=== PATIENT | female | born 2000 | race Caucasian/White ===

== ENCOUNTER 2019-08-22 04:13 | Emergency (ER) | payer OTHER ==
--- OUTSIDE RECORDS SUMMARY | 2019-08-22 04:16 | XMS REPORT | Summary of Care ---
:1999 Author Organization [facility] Address [address] [place] [address] Care Team Providers Name Role Phone Leela Bartholomew MD Primary Care Provider Reason for Visit Reason Comments Refill Request Encounter Details Date Type Department Care Team Description 04/26/2019 Telephone [facility] Endocrinology- Jenny Moreno MD Refill Request [address] Professional Office [address] [phone] [place] [address] [address] [place] [address] Allergies Active Allergy Reactions Severity Noted Date Comments Exenatide Microspheres Other - See comments 02/13/2018 Itchy, knot Sulfur Nausea and/or Vomiting 07/17/2018 Liraglutide Nausea and/or Vomiting Medium 06/22/2018 documented as of this encounter (statuses as of 04/26/2019) Medications Medication Sig Dispensed Refills Start End Date Status Date IBUPROFEN (MOTRIN Take by mouth. 0 Active ORAL)Indications: Diabetes type 2, uncontrolled glucagon (GLUCAGON 1 mg by 1 mg 0 Active EMERGENCY KIT, Intramuscular 6 HUMAN,) 1 mg route as needed injection (severe hypoglycemia, seizure or unconciousness). acetone, urine, Check ketones if 1 Box 5 Active test (KETONE URINE blood sugar >300 7 TEST) or if ill prn stripIndications: Uncontrolled diabetes mellitus type 2 without complications, unspecified long-term insulin use status albuterol 90 Inhale 2 Puffs 1 Inhaler 1 Active mcg/actuation every 6 (six) 8 inhaler hours as needed for Wheezing or Shortness of Breath. Insulin [place], Taking 2 injection 2 Box 12 Active Disposable, (PEN daily 8 NEEDLE) 31 gauge x 5/16" NdleIndications: Uncontrolled type 2 diabetes mellitus without complication pioglitazone 15 mg Take 1 tablet by 90 tablet 1 Active tabletIndications: mouth daily. 8 diabetes mellitus paroxetine 40 mg Take 1 tablet by 30 tablet 1 Active tablet mouth daily. 9 insulin inject 50 Units 5 Syringe 3 Active degludec-liragluti under the skin 9 de (XULTOPHY daily. 100/3.6) 100 unit-3.6 mg /mL (3 mL) InPnIndications: diabetes mellitus LEVONORGESTREL-ETH TAKE 1 TABLET BY 28 tablet 5 Active INYL ESTRADIOL MOUTH ONCE DAILY 9 0.1-20 mg-mcg per tabletIndications: Uses oral contraception metformin ER 500 Take 2 tablets by 360 tablet 0 Active mg 24 hr mouth 2 (two) 9 tabletIndications: times daily. Type 2 diabetes mellitus without complication, with long-term current use of insulin metformin ER 500 Take 2 tablets by 360 tablet 3 04/26/20 Discontinued mg 24 hr mouth 2 (two) 8 19 tabletIndications: times daily. Type 2 diabetes mellitus without complication, with long-term current use of insulin documented as of this encounter (statuses as of 04/26/2019) Active Problems Problem Noted Date Uncontrolled type 2 diabetes mellitus without complication, with long-term current use of insulin Overview: Diagnosed 2014 (age 14) Mixed hyperlipidemia 07/17/2018 Anxiety and depression 02/22/2018 Obesity (BMI 30-39.9) 02/22/2018 documented as of this encounter (statuses as of 04/26/2019) Social History Tobacco Use Types Packs/Day Years Used Date Light Tobacco Smoker Smokeless Tobacco: Never Used Alcohol Use Drinks/Week oz/Week Comments No 0 Standard drinks or equivalent 0.0 rare Sex Assigned at Date Recorded Not on file Job Start Date Occupation Industry Not on file Not on file Not on file Travel History Travel Start Travel End No recent travel history available. documented as of this encounter Last Filed Vital Signs Not on filedocumented in this encounter Plan of Treatment Date Type Specialty Care Team Description 07/07/2019 Office Visit Endocrinology Diabetes & Jenny Moreno MD Metabolism [address] [place] [address] [phone] Health Maintenance Due Date Last Done Comments PNEUMOCOCCAL 0-64 YEARS 12/22/2005 COMBINED SERIES (1 of 1 - PPSV23) MENINGOCOCCAL B VACCINES (1 12/22/2009 of 2 - Risk Bexsero 2-dose series) VARICELLA VACCINES (1 of 2 - 12/22/2012 13+ 2-dose series) HPV VACCINES (1 - Female 12/22/2014 3-dose series) EYE EXAM 08/21/2018 08/21/2017, 12/19/2016 HgA1C 12/21/2018 06/22/2018, 12/22/2017, 02/05/2017, Additional history exists DTaP,Tdap,and Td Vaccines (1 12/22/2018 - Tdap) INFLUENZA VACCINE (#1) 2019 FOOT EXAM 07/17/2019 07/17/2018, 07/17/2018, 06/22/2018, Additional history exists LDL-C 07/17/2019 07/17/2018, 02/05/2017 URINE MICROALBUMIN 07/17/2019 07/17/2018 CHLAMYDIA SCREENING 08/18/2019 08/18/2018 CREATININE (SERUM) 02/15/2020 02/14/2019, 07/17/2018, 02/05/2017 MENINGOCOCCAL VACCINE Aged Out No longer eligible based on patient's age to complete this topic documented as of this encounter Results Not on filedocumented in this encounter Visit Diagnoses Diagnosis Type 2 diabetes mellitus without complication, with long-term current use of insulin documented in this encounter Insurance Payer Benefit Plan / Subscriber ID Effective Phone Address Type Group Dates [facility] [id number] 2018-Lori [phone] [address] [employer] [facility] [employer] [phone] [place] [address] documented as of this encounter
--- OUTSIDE RECORDS SUMMARY | 2019-08-22 04:17 | XMS REPORT | Summary of Care ---
:1999 Author Organization [facility] Address [address] [place] [address] Care Team Providers Name Role Phone Leela Bartholomew MD Primary Care Provider Reason for Visit Reason Comments Headache X 4 days Fever Sore Throat LAB WORK Encounter Details Date Type Department Care Team Description 05/13/2019 Office Visit [facility] Family SaschaAminta FNP Viral upper respiratory tract infection (Primary Dx); Medicine - [place] [address] Follow up; [address] Acute cystitis without hematuria [place], [place] [phone] [place], [place] [phone] Allergies Active Allergy Reactions Severity Noted Date Comments Exenatide Microspheres Other - See comments 02/13/2018 Itchy, knot Sulfur Nausea and/or Vomiting 07/17/2018 Liraglutide Nausea and/or Vomiting Medium 06/22/2018 documented as of this encounter (statuses as of 05/14/2019) Medications Medication Sig Dispensed Refills Start Date End Date Status IBUPROFEN (MOTRIN Take by mouth. 0 Active ORAL)Indications: Diabetes type 2, uncontrolled glucagon (GLUCAGON 1 mg by 1 mg 0 11/01/2015 Active EMERGENCY KIT, Intramuscular route HUMAN,) 1 mg as needed (severe injection hypoglycemia, seizure or unconciousness). 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 Insulin [place], Taking 2 injection 2 Box 12 06/22/2018 Active Disposable, (PEN daily NEEDLE) 31 gauge x 5/16" NdleIndications: Uncontrolled type 2 diabetes mellitus without complication pioglitazone 15 mg Take 1 tablet by 90 tablet 1 07/17/2018 Active tabletIndications: mouth daily. diabetes mellitus paroxetine 40 mg Take 1 tablet by 30 tablet 1 09/09/2018 Active tablet mouth daily. insulin inject 50 Units 5 Syringe 3 01/28/2019 Active degludec-liraglutid under the skin e (XULTOPHY daily. 100/3.6) 100 unit-3.6 mg /mL (3 mL) InPnIndications: diabetes mellitus LEVONORGESTREL-ETHI TAKE 1 TABLET BY 28 tablet 5 02/08/2019 Active NYL ESTRADIOL MOUTH ONCE DAILY 0.1-20 mg-mcg per tabletIndications: Uses oral contraception metformin ER 500 mg Take 2 tablets by 360 tablet 0 04/26/2019 Active 24 hr mouth 2 (two) times tabletIndications: daily. Type 2 diabetes mellitus without complication, with long-term current use of insulin brompheniramine-pse Take 5 mL by mouth 200 mL 0 05/13/2019 05/23/2019 Active udoephedrine-DM 4 (four) times (BROMFED DM) daily as needed for 2-30-10 mg/5 mL Congestion/Allergie syrupIndications: s or Cough for up Viral upper to 10 days. respiratory tract infection azelastine 137 mcg Use 1 Melvin in each 30 mL 0 05/13/2019 05/27/2019 Active (0.1 %) nasal nostril 2 (two) sprayIndications: times daily for 14 Viral upper days. Use in each respiratory tract nostril as directed infection ciprofloxacin HCl Take 1 tablet by 20 tablet 0 05/14/2019 05/24/2019 Active (CIPRO) 500 mg mouth every 12 tabletIndications: (twelve) hours for Acute cystitis 10 days. without hematuria documented as of this encounter (statuses as of 05/14/2019) Active Problems Problem Noted Date Uncontrolled type 2 diabetes mellitus without complication, with long-term current use of insulin Overview: Diagnosed 2014 (age 14) Mixed hyperlipidemia 07/17/2018 Anxiety and depression 02/22/2018 Obesity (BMI 30-39.9) 02/22/2018 documented as of this encounter (statuses as of 05/14/2019) Social History Tobacco Use Types Packs/Day Years [...] of this encounter Last Filed Vital Signs Vital Sign Reading Time Taken Comments Blood Pressure 130/84 05/13/2019 9:22 AM CDT Pulse 105 05/13/2019 9:22 AM CDT Temperature 37 C (98.6 F) 05/13/2019 9:22 AM CDT Respiratory Rate - - Oxygen Saturation 98% 05/13/2019 9:22 AM CDT Inhaled Oxygen Concentration - - Weight 105.2 kg (232 lb) 05/13/2019 9:22 AM CDT Height 167.6 cm (5' 6") 05/13/2019 9:22 AM CDT Body Mass Index 37.45 05/13/2019 9:22 AM CDT documented in this encounter Progress Notes Aminta Caicedo FNP - 05/13/2019 9:20 AM CDT Cc: Chief Complaint Patient presents with Headache X 4 days Fever Sore Throat Felipa Benavides is a 18 year old female. Patient with 3 days of URI symptoms accompanied by LANDERS. She has a hx of seasonal allergies but not onroutine meds. She has recurrent UTIs since she was started on pioglitazone, she recently in the past few days finished a course of antibiotics but asking for test of cure with repeat labs since she is here. 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 URI Presenting symptoms: congestion, cough (dry), fever, rhinorrhea (mild) and sore throat Presenting symptoms: no fatigue Congestion: Location: Nasal Interferes with sleep: no Interferes with eating/drinking: no Cough: Cough characteristics: Dry Sputum characteristics: Nondescript Severity: Mild Onset quality: Gradual Timing: Intermittent Progression: Unchanged Chronicity: New Fever: Timing: Intermittent Max temp prior to arrival: 100.2 Temp source: Oral Progression: Resolved Rhinorrhea: Quality: Clear Severity: Mild Timing: Intermittent Progression: Unchanged Sore throat: Severity: Mild Onset quality: Gradual Timing: Intermittent Progression: Resolved Severity: Mild Onset quality: Gradual Timing: Intermittent Progression: Unchanged Chronicity: New Relieved by: Nothing Worsened by: Nothing Ineffective treatments: OTC medications Associated symptoms: headaches and swollen glands Associated symptoms: no wheezing Headaches: Severity: Moderate Onset quality: Gradual Duration: 3 days Timing: Constant Progression: Unchanged Chronicity: New Risk factors: diabetes mellitus Risk factors: no sick contacts Allergies Felipa is allergic to victoza [liraglutide]; bydureon [exenatide microspheres]; and sulfur. Medications Outpatient Medications Prior to Visit Medication Sig Dispense Refill metformin ER 500 mg 24 hr tablet Take 2 tablets by mouth 2 (two) times daily. 360 tablet 0 LEVONORGESTREL-ETHINYL ESTRADIOL 0.1-20 mg-mcg per tablet TAKE 1 TABLET BY MOUTH ONCE DAILY 28 tablet 5 insulin degludec-liraglutide (XULTOPHY 100/3.6) 100 unit-3.6 mg /mL (3 mL) InPn inject 50 Units under the skin daily. 5 Syringe 3 paroxetine 40 mg tablet Take 1 tablet by mouth daily. 30 tablet 1 pioglitazone 15 mg tablet Take 1 tablet by mouth daily. 90 tablet 1 Insulin [place], Disposable, (PEN NEEDLE) 31 gauge x 5/16" Ndle Taking 2 injection daily 2 Box 12 albuterol 90 mcg/actuation inhaler Inhale 2 Puffs every 6 (six) hours as needed for Wheezing or Shortness of Breath. 1 Inhaler 1 acetone, urine, test (KETONE URINE TEST) strip Check ketones if blood sugar >300 or if ill prn 1 Box 5 glucagon (GLUCAGON EMERGENCY KIT, HUMAN,) 1 mg injection 1 mg by Intramuscular route as needed (severe hypoglycemia, seizure or unconciousness). 1 mg 0 IBUPROFEN (MOTRIN ORAL) Take by mouth. No facility-administered medications prior to visit. Histories Past Medical History: Diagnosis Date Anxiety and depression 02/22/2018 Diabetes mellitus Mixed dyslipidemia 02/11/2017 Obesity (BMI 30-39.9) 02/22/2018 History reviewed. No pertinent surgical history. Social History Socioeconomic History Marital status: Single Spouse name: Not on file Number of children: Not on file Years of education: Not on file Highest education level: Not on file Occupational History Not on file Social Needs Financial resource strain: Not on file Food insecurity: Worry: Not on file Inability: Not on file Transportation needs: Medical: Not on file Non-medical: Not on file Tobacco Use Smoking status: Light Tobacco Smoker Smokeless tobacco: Never Used Substance and Sexual Activity Alcohol use: No Alcohol/week: 0.0 oz Comment: rare Drug use: No Sexual activity: Never Lifestyle Physical activity: Days per week: Not on file Minutes per session: Not on file Stress: Not on file Relationships Social connections: Talks on phone: Not on file Gets together: Not on file Attends samaritan service: Not on file Active member of club or organization: Not on file Attends meetings of clubs or organizations: Not on file Relationship status: Not on file Intimate partner violence: Fear of current or ex partner: Not on file Emotionally abused: Not on file Physically abused: Not on file Forced sexual activity: Not on file Other Topics Concern Not on file Social History Narrative Lives with parents. About to start college at [employer]. Family History Problem Relation Age of Onset Diabetes Mother High cholesterol Father Hypertension Father Other - see comments Father Paget disease Review of Systems Constitutional: Positive for fever. Negative for chills and fatigue. HENT: Positive for congestion, rhinorrhea (mild) and sore throat. Respiratory: Positive for cough (dry). Negative for apnea, choking, chest tightness, shortness of breath and wheezing. Cardiovascular: Negative. Negative for chest pain, palpitations and leg swelling. Gastrointestinal: Negative. Skin: Negative. Neurological: Positive for headaches. Negative for dizziness, tremors, seizures , syncope, facial asymmetry, speech difficulty, weakness, light-headedness and numbness. Endocrine: Endocrine negative diabetic Vital Signs BP 130/84 | Pulse 105 | Temp 37 C (98.6 F) (Oral) | Ht 5' 6" (1.676 m) | Wt 232 lb (105.2 kg) | SpO2 98% | BMI 37.45 kg/m Physical Exam Constitutional: She is oriented to person, place, and time. She appears well- developed and well-nourished. HENT: Head: Normocephalic. Right Ear: Hearing, tympanic membrane, external ear and ear canal normal. Left Ear: Hearing, tympanic membrane, external ear and ear canal normal. Nose: Rhinorrhea present. No mucosal edema or sinus tenderness. Right sinus exhibits maxillary sinustenderness. Left sinus exhibits maxillary sinus tenderness. Mouth/Throat: Uvula is midline, oropharynx is clear and moist and mucous membranes are normal. No oropharyngeal exudate, posterior oropharyngeal edema, posterior oropharyngeal erythema or tonsillar abscesses. Tonsils are 3+ on the right. Tonsils are 3+ on the left. No tonsillar exudate. Neck: Normal range of motion. Neck supple. Cardiovascular: Normal rate, regular rhythm, normal heart sounds and intact distal pulses. Exam reveals no gallop and no friction rub. No murmur heard. Pulmonary/Chest: Effort normal and breath sounds normal. No respiratory distress. She has no wheezes. She has no rales. She exhibits no tenderness. Abdominal: Soft. Bowel sounds are normal. She exhibits no distension. There is no tenderness. Lymphadenopathy: Head (right side): Submandibular adenopathy present. No submental and no tonsillar adenopathy present. Head (left side): Submandibular adenopathy present. No submental and no tonsillar adenopathy present. She has cervical adenopathy. Right cervical: No superficial cervical, no deep cervical and no posterior cervical adenopathy present. Left cervical: No superficial cervical, no deep cervical and no posterior cervical adenopathy present. Neurological: She is alert and oriented to person, place, and time. She displays normal reflexes. Nocranial nerve deficit or sensory deficit. She exhibits normal muscle tone. Coordination normal. Skin: Skin is warm and dry. Capillary refill takes less than 2 seconds. No rash noted. No erythema. No pallor. Nursing note and vitals reviewed. Assessment/Plan 1. URI - continue antihistamine ordered for allergies. Azelastine nasal spar and bromfed added for symptoms relief. Get the flu vaccine when available in clinic or local pharmacy. If no relief from symptoms, or worse, please RTC. 2. 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 Keep LANDERS diary, and avoid any known triggers. If no improvement, or with any new neurological symptoms, liz RTC. 2. F/U UTI: will get a repeat UA and culture to re-eval. Hydration and proper hygiene encouraged. Patient to discuss medication management with endocrinology with her scheduled visit. RTC if with any new symptoms, problems or concerns. Plan of care, desired health behaviors, goals, and medication discussed with patient. Education resources provided and reviewed with AVS. Patient/guardian/family verbalized understanding & agrees to plan of care. This visit did not involve counseling and coordination that comprised more than 50% of the visit time. If applicable, the [facility] database was accessed to review any controlled substance prescription claims data. The [employer] prescription claims data in [employer] was reviewed to assess patient compliance with the medication treatment plan. documented in this encounter Plan of Treatment Date Type Specialty Care Team Description 07/07/2019 Office Visit Endocrinology Diabetes & MorenoJenny MD [id number] [place], [place] [id number] Name Type Priority Associated Diagnoses Date/Time URINE CULTURE LAB Routine Follow up 05/13/2019 9:49 AM CDT Health Maintenance Due Date Last Done Comments [...] this topic documented as of this encounter Procedures Procedure Name Priority Date/Time Associated Diagnosis Comments URINALYSIS Routine 05/13/2019 10:48 AM Follow up Results for this CDT procedure are in the results section. documented in this encounter Results URINALYSIS (05/13/2019 10:48 AM CDT) APPEARANCE Slightly Cloudy (A) Clear [facility] COLOR Yellow Yellow [facility] PH 6.0 4.8 - 8.0 [facility] SP GRAVITY 1.025 1.003 - 1.030 [facility] GLU U QUAL Negative Negative [facility] BLOOD Negative Negative [facility] KETONES Negative Negative [facility] PROTEIN Negative Negative [facility] UROBILIN 0.2 mg/dL 0-1.0 mg/dL [facility] BILIRUBIN Negative Negative [facility] NITRITE Positive (A) Negative [facility] LEUK PENG Small (A) Negative [facility] RBC/HPF 0 0 - 3 HPF [facility] WBC/HPF 100 (H) 0 - 5 HPF [facility] BACTERIA Many (A) Negative [facility] SQ EPITH 80 HPF [facility] Specimen Urine - URINE, CLEAN CATCH Performing Organization Address City/State/Zipcode Phone Number [facility] CLIA: [id number], [address] [place] [address] documented in this encounter Visit Diagnoses Diagnosis Viral upper respiratory tract infection - Primary Acute upper respiratory infections of unspecified site Follow up Acute cystitis without hematuria Acute cystitis documented in this encounter Insurance Payer Benefit Plan / Subscriber ID Effective Phone Address Type Group Dates [facility] [id number] 2018-Lori [phone] [address] [employer] [facility] [employer] [facility] [employer] [id number] [place] [address] documented as of this encounter
--- OUTSIDE RECORDS SUMMARY | 2019-08-22 04:17 | XMS REPORT | Summary of Care ---
:1999 Author Organization [facility] Address [address] [place] [address] Care Team Providers Name Role Phone Leela Bartholomew MD Primary Care Provider Encounter Details Date Type Department Care Team Description 05/13/2019 Orders Only [facility] Doctor Unassigned, No [address] [facility] Name [place] [id number] Allergies Active Allergy Reactions Severity Noted Date Comments Exenatide Microspheres Other - See comments 02/13/2018 Itchy, knot Sulfur Nausea and/or Vomiting 07/17/2018 Liraglutide Nausea and/or Vomiting Medium 06/22/2018 documented as of this encounter (statuses as of 05/13/2019) Medications Medication Sig Dispensed Refills Start Date End Date Status IBUPROFEN (MOTRIN Take by mouth. 0 Active ORAL)Indications: Diabetes type 2, uncontrolled glucagon (GLUCAGON 1 mg by 1 mg 0 11/01/2015 Active EMERGENCY KIT, Intramuscular route HUMAN,) 1 mg as needed (severe injection hypoglycemia, seizure or unconciousness). 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 Insulin [place], Taking 2 injection 2 Box 12 06/22/2018 [...] 50 Units 5 Syringe 3 01/28/2019 Active degludec-liraglutide under the skin (XULTOPHY 100/3.6) daily. 100 unit-3.6 mg /mL (3 mL) InPnIndications: diabetes mellitus LEVONORGESTREL-ETHIN TAKE 1 TABLET BY 28 tablet 5 02/08/2019 Active YL ESTRADIOL 0.1-20 MOUTH ONCE DAILY mg-mcg per tabletIndications: Uses oral contraception metformin ER 500 mg Take 2 tablets by 360 tablet 0 04/26/2019 Active 24 hr mouth 2 (two) times tabletIndications: daily. Type 2 diabetes mellitus without complication, with long-term current use of insulin documented as of this encounter (statuses as of 05/13/2019) Active Problems Problem Noted Date Uncontrolled type 2 diabetes mellitus without complication, with long-term current use of insulin Overview: Diagnosed 2014 (age 14) Mixed hyperlipidemia 07/17/2018 Anxiety and depression 02/22/2018 Obesity (BMI 30-39.9) 02/22/2018 documented as of this encounter (statuses as of 05/13/2019) Social History Tobacco Use Types Packs/Day Years [...] Treatment Date Type Specialty Care Team Description 05/13/2019 Office Visit Family Medicine Aminta Caicedo FNP Arrived [address] [address] 07/07/2019 Office Visit Endocrinology Diabetes & MorenoJenny MD Metabolism [address] [place] [address] Health Maintenance Due Date Last Done Comments [...] Procedure Name Priority Date/Time Associated Diagnosis Comments NO SHOW OR MISSED Routine 05/13/2019 9:13 AM APPOINTMENT POLICY CDT ACKNOWLEDGEMENT documented in this encounter Results Not on filedocumented in this encounter Insurance Payer Benefit Plan / Subscriber ID Effective Phone Address Type Group Dates [facility] [id number] 2018-Lori [phone] [address] [employer] [facility] [employer] [phone] [place] [address] documented as of this encounter
--- OUTSIDE RECORDS SUMMARY | 2019-08-22 04:17 | XMS REPORT | Summary of Care ---
:2000 Author Organization [facility] Address [address] [place] [address] Care Team Providers Name Role Phone Leela Bartholomew MD Primary Care Provider Encounter Details Date Type Department Care Team Description 04/29/2019 Letter (Out) [facility] Endocrinology- Jenny Moreno MD [place] [address] [facility] Professional Office [place] [id number] [facility] [phone] [place] [address] [address] [place] [address] Allergies Active Allergy Reactions Severity Noted Date Comments Exenatide Microspheres Other - See comments 02/13/2018 Itchy, knot Sulfur Nausea and/or Vomiting 07/17/2018 Liraglutide Nausea and/or Vomiting Medium 06/22/2018 documented as of this encounter (statuses as of 04/29/2019) Medications Medication Sig Dispensed Refills Start Date [...] diabetes mellitus type 2 without complications, unspecified residential insulin use status albuterol 90 Inhale 2 Puffs 1 Inhaler 1 05/13/2018 Active mcg/actuation every 6 (six) hours inhaler as needed for Wheezing or Shortness of Breath. Insulin [place], Taking 2 injection 2 Box 12 06/22/2018 [...] as of this encounter (statuses as of 04/29/2019) Active Problems Problem Noted Date Uncontrolled type 2 diabetes mellitus without complication, with long-term current use of insulin Overview: Diagnosed 2014 (age 14) Mixed hyperlipidemia 07/17/2018 Anxiety and depression 02/22/2018 Obesity (BMI 30-39.9) 02/22/2018 documented as of this encounter (statuses as of 04/29/2019) Social History Tobacco Use Types Packs/Day Years [...] Description 07/07/2019 Office Visit Endocrinology Diabetes & Moreno, MD Jenny Metabolism [address] [place], [place] 557903 Health Maintenance Due Date Last Done Comments [...] ID Effective Phone Address Type Group Dates [facility] [id number] 2018-Lori [phone] [address] HMO HEALTH [employer] HEALTH CHOICE nt 86 [id number] [place] [address] documented as of this encounter
--- OUTSIDE RECORDS SUMMARY | 2019-08-22 04:17 | XMS REPORT | Summary of Care ---
:2000 Author Organization [facility] Address [address] [place] [address] Care Team Providers Name Role Phone Leela Bartholomew MD Primary Care Provider Reason for Visit Reason Comments Headache X 4 days Fever Sore Throat LAB WORK Encounter Details Date Type Department Care Team Description 05/13/2019 Office Visit [facility] Family Aminta Caicedo FNP Viral upper respiratory tract infection (Primary Dx); Medicine - [place] [address] Follow up [address] [place], [place] Fbc[address] [place] [phone] Allergies Active Allergy Reactions Severity Noted Date [...] diabetes mellitus type 2 without complications, unspecified half-way insulin use status albuterol 90 Inhale 2 Puffs 1 Inhaler 1 05/13/2018 Active mcg/actuation every 6 (six) hours inhaler as needed for Wheezing or Shortness of Breath. Insulin [place], Taking 2 injection 2 Box 12 06/22/2018 [...] tract infection azelastine 137 mcg Use 1 [place] in each 30 mL 0 05/13/2019 05/27/2019 Active (0.1 %) nasal nostril 2 (two) sprayIndications: times daily for 14 Viral upper days. Use in each respiratory tract nostril as directed infection documented as of this encounter (statuses as [...] documented in this encounter Progress Notes Aminta Caicedo, LILY - 05/13/2019 9:20 AM CDT Cc: Chief [...] She has an appointment scheduled with the brokerage purchase and sale clerk for medication management. URI Presenting symptoms: congestion, [...] by mouth daily. 90 tablet 1 Insulin [place], Disposable, (PEN NEEDLE) 31 gauge x 5/16" [...] file Gets together: Not on file Attends pentecostal service: Not on file Active member of [...] with parents. About to start college at [employer]. Family History Problem Relation Age of [...] of the visit time. If applicable, the [place] [employer] database was accessed to review any controlled substance prescription claims data. The [employer] prescription claims data in [employer] was reviewed to assess patient compliance with the medication treatment plan. documented in this encounter Plan of Treatment Date Type Specialty Care Team Description 07/07/2019 Office Visit Endocrinology Diabetes & MorenoJenny MD Metabolism [address] [place] [address] [phone] Name Type Priority Associated Diagnoses Date/Time URINALYSIS LAB Routine Follow up 05/13/2019 9:35 AM CDT URINE CULTURE LAB Routine Follow up 05/13/2019 [...] filedocumented in this encounter Visit Diagnoses Diagnosis Viral upper respiratory tract infection - Primary Acute upper respiratory infections of unspecified site Follow up documented in this encounter Insurance Payer Benefit Plan / Subscriber ID Effective Phone Address Type Group Dates [facility] [id number] 2018-Lori [phone] [address] HEALTH CHOICE HEALTH CHOICE nt [phone] [id number] [place] [address] documented as of this encounter
--- OUTSIDE RECORDS SUMMARY | 2019-08-22 04:17 | XMS REPORT ---
:2000 [facility] Address [address] [place] [address] Care Team Providers Name Role Phone Unavailable Unavailable Unavailable Problems This patient has no known problems. Allergies, Adverse Reactions, Alerts This patient has no known allergies or adverse reactions. Medications This patient has no known medications.
--- OUTSIDE RECORDS SUMMARY | 2019-08-22 04:17 | XMS REPORT | Summary of Care ---
:2000 Author Organization [facility] Address [address] [place] [address] Care Team Providers Name Role Phone Leela Bartholomew MD Primary Care Provider Reason for Visit Reason Comments Headache X 4 days Fever Sore Throat LAB WORK Encounter Details Date Type Department Care Team Description 05/13/2019 Office Visit [facility] Family Aminta Caicedo FNP Viral upper respiratory tract infection (Primary Dx); Medicine - [place] [address] Follow up [address] [place], [place] Xzh[address] [place], [place] [phone] Allergies Active Allergy Reactions Severity Noted Date [...] diabetes mellitus type 2 without complications, unspecified fpc insulin use status albuterol 90 Inhale 2 Puffs 1 Inhaler 1 05/13/2018 Active mcg/actuation every 6 (six) hours inhaler as needed for Wheezing or Shortness of Breath. Insulin [place], Taking 2 injection 2 Box 12 06/22/2018 [...] tract infection azelastine 137 mcg Use 1 [place] in each 30 mL 0 05/13/2019 05/27/2019 [...] She has an appointment scheduled with the wet room supervisor for medication management. URI Presenting symptoms: congestion, [...] by mouth daily. 90 tablet 1 Insulin [place], Disposable, (PEN NEEDLE) 31 gauge x 5/16" [...] file Gets together: Not on file Attends sabianist service: Not on file Active member of [...] with parents. About to start college at [employer]. Family History Problem Relation Age of Onset [...] of the visit time. If applicable, the [place] [employer] database was accessed to review any controlled substance prescription claims data. The [employer] prescription claims data in [place] was reviewed to assess patient compliance with the medication treatment plan. documented in this encounter Plan of Treatment Date Type Specialty Care Team Description 07/07/2019 Office Visit Endocrinology Diabetes & MorenoJenny MD Metabolism [address] [place] [address] [phone] Name Type Priority Associated Diagnoses Date/Time URINALYSIS LAB Routine Follow up 05/13/2019 10:48 AM CDT URINE CULTURE LAB Routine Follow [...] ID Effective Phone Address Type Group Dates [facility] [id number] 2018-Lori [phone] [address] HEALTH CHOICE HEALTH CHOICE nt 86 [phone] [place] [address] documented as of this encounter
--- OUTSIDE RECORDS SUMMARY | 2019-08-22 04:17 | XMS REPORT | Summary of Care ---
:2000 Author Organization [facility] Address [address] [place] [address] Care Team Providers Name Role Phone Leela Bartholomew MD Primary Care Provider Reason for Visit Reason Comments Headache X 4 days Fever Sore Throat LAB WORK Encounter Details Date Type Department Care Team Description 05/13/2019 Office Visit [facility] Family Aminta Caicedo FNP Viral upper respiratory tract infection (Primary Dx); Medicine - [place] [address] Follow up [address] [place], [place] Y[place] [place] [phone] Allergies Active Allergy Reactions Severity Noted Date [...] for Wheezing or Shortness of Breath. Insulin [place], Taking 2 injection 2 Box 12 06/22/2018 [...] tract infection azelastine 137 mcg Use 1 [place] in each 30 mL 0 05/13/2019 05/27/2019 [...] She has an appointment scheduled with the director of pediatric rehabilitation for medication management. URI Presenting symptoms: congestion, [...] by mouth daily. 90 tablet 1 Insulin [place], Disposable, (PEN NEEDLE) 31 gauge x 5/16" [...] file Gets together: Not on file Attends holiness service: Not on file Active member of [...] with parents. About to start college at [employer]. Family History Problem Relation Age of Onset [...] of the visit time. If applicable, the [place] [employer] database was accessed to review any controlled substance prescription claims data. The [employer] prescription claims data in [employer] was reviewed to assess patient compliance with the medication treatment plan. documented in this encounter Plan of Treatment Date Type Specialty Care Team Description 07/07/2019 Office Visit Endocrinology Diabetes & MorenoJenny MD Metabolism [address] [place] [address] [phone] Name Type Priority Associated Diagnoses Date/Time URINALYSIS [...] ID Effective Phone Address Type Group Dates [facility] [id number] 2018-Lori [phone] [address] HEALTH CHOICE HEALTH CHOICE nt 86 [phone] [place] [address] documented as of this encounter
--- OUTSIDE RECORDS SUMMARY | 2019-08-22 04:17 | XMS REPORT | Summary of Care ---
:2000 Author Organization [facility] Address [address] [place] [address] Care Team Providers Name Role Phone Leela Bartholomew MD Primary Care Provider Reason for Visit Reason Comments Refill Request Encounter Details Date Type Department Care Team Description 04/29/2019 Refill [facility] Endocrinology- Jenny Moreno MD Refill Request [address] Professional Office [address] [place] [phone] [address] [place] [address] Allergies Active Allergy Reactions Severity Noted Date Comments Exenatide Microspheres Other - See comments 02/13/2018 Itchy, knot Sulfur Nausea and/or Vomiting 07/17/2018 Liraglutide Nausea and/or Vomiting Medium 06/22/2018 documented as of this encounter (statuses as of 04/30/2019) Medications Medication Sig Dispensed Refills Start Date [...] diabetes mellitus type 2 without complications, unspecified intermediate insulin use status albuterol 90 Inhale 2 Puffs 1 Inhaler 1 05/13/2018 Active mcg/actuation every 6 (six) hours inhaler as needed for Wheezing or Shortness of Breath. Insulin [place], Taking 2 injection 2 Box 12 06/22/2018 [...] as of this encounter (statuses as of 04/30/2019) Active Problems Problem Noted Date Uncontrolled type 2 diabetes mellitus without complication, with long-term current use of insulin Overview: Diagnosed 2014 (age 14) Mixed hyperlipidemia 07/17/2018 Anxiety and depression 02/22/2018 Obesity (BMI 30-39.9) 02/22/2018 documented as of this encounter (statuses as of 04/30/2019) Social History Tobacco Use Types Packs/Day Years [...] Diabetes & Moreno, MD Jenny Metabolism [address] [place], [place] [phone] Health Maintenance Due Date Last Done Comments [...] Effective Phone Address Type Group Dates [facility] [id number] 2018-Lori [phone] [address] [employer] [facility] [employer] nt [phone] [place] [address] documented as of this encounter
[2019-08-22] MEDS ORDERED: METOCLOPRAMIDE 10 MG/2mL INJ ONE (04:55)
[2019-08-22] MEDS ORDERED: NA CHLORIDE 0.9% 1,000 ML ONE (04:56)
[2019-08-22] MEDS ORDERED: DIPHENHYDRAMINE 50 MG/ML VIAL ONE (04:56)
[2019-08-22] MEDS ORDERED: KETOROLAC 30 MG/ML INJ ONE (04:56)
[2019-08-22 05:06] LABS: Basophils % 0.6 % (0-1.3); Lymphocytes % 35.9 % (15.3-44.8); MPV 9.3 fL (7.6-11.3); RBC Red Blood Cell Count 4.82 M/uL (3.86-4.86)
[2019-08-22 05:17] LABS: Albumin 3.6 g/dL (3.4-5.0); Bilirubin Total 0.3 mg/dL (0.2-1.0); Protein, Total 7.8 g/dL (6.4-8.2)
[2019-08-22 05:25] LABS: Urine Specific Gravity 1.015 (1.005-1.030)
[2019-08-22 05:26] LABS: Urine Blood NEGATIVE (NEG); Urine Glucose 2+ (NEG); Urine Protein NEGATIVE (NEG); Urine Specific Gravity 1.015 (1.005-1.030); Urine pH 5.5 (5.0-7.0)
--- NOTE | 2019-08-22 06:09 | ER ---
Nurse's Notes [facility] Name: Felipa Benavides Age: 18 yrs Sex: Female : 2000 Arrival Date: 08/22/2019 Time: 04:17 Bed 6 Private MD: Diagnosis: Headache;Type 2 diabetes mellitus Presentation: 08/22 04:30 Presenting complaint: Patient states: "I woke up with a headache at about 0310. I took jd3 2 PMS equate brand and worked for the headache, but no I feel fatigued all over. I feel like how you feel after a panic attack.". Transition of care: patient was not received from another setting of care. Onset of symptoms was August 22, 2019. Risk Assessment: Do you want to hurt yourself or someone else? Patient reports no desire to harm self or others. Initial Sepsis Screen: Does the patient meet any 2 criteria? No. Patient's initial sepsis screen is negative. Does the patient have a suspected source of infection? No. Patient's initial sepsis screen is negative. Care prior to arrival: None. 04:30 Method Of Arrival: Ambulatory jd3 04:30 Acuity: EDILIA 3 jd3 Triage Assessment: 04:36 Headache History: The patient has had previous headaches and this one is more severe jd3 than previous episodes. Pain: Pain began 1 hour ago. Also complains of sleeplessness, inability to concentrate, fatigue. FAMILY LITERACY COORDINATOR: 04:33 LMP N/A - Irregular menses jd3 Historical: - Allergies: 04:32 No Known Allergies; jd3 - Home Meds: 04:32 metformin 500 mg Oral Tb24 2 tabs 2 times per day [Active]; jd3 - PMHx: 04:32 Diabetes - NIDDM; jd3 - PSHx: 04:32 None; jd3 - Immunization history:: Adult Immunizations up to date. - Social history:: Smoking status: Patient/guardian denies using tobacco. - Ebola Screening: : Patient negative for fever greater than or equal to 101.5 degrees Fahrenheit, and additional compatible Ebola Virus Disease symptoms. - Family history:: not pertinent. Screenin:35 Abuse screen: Denies threats or abuse. Nutritional screening: No deficits noted. jd3 Tuberculosis screening: No symptoms or risk factors identified. Fall Risk Ambulatory Aid- None/Bed Rest/Nurse Assist (0 pts). Gait- Normal/Bed Rest/Wheelchair (0 pts) Mental Status- Oriented to own ability (0 pts). Total Rawls Fall Scale indicates No Risk (0-24 pts). Assessment: 04:34 General: Appears in no apparent distress. uncomfortable, Behavior is calm, cooperative, jd3 appropriate for age, Reports fatigue for 0-12 hours. Pain: Complains of pain in head Pain currently is 2 out of 10 on a pain scale. Quality of pain is described as aching. Neuro: Level of Consciousness is awake, alert, obeys commands, Oriented to person, place, time, situation, Reports dizziness, Denies blurred vision numbness diplopia. Cardiovascular: Denies chest pain, Capillary refill < 3 seconds Patient's skin is warm and dry. Respiratory: Airway is patent Respiratory effort is even, unlabored, Respiratory pattern is regular, symmetrical, Denies cough, shortness of breath. GI: No signs and/or symptoms were reported involving the gastrointestinal system. Patient currently denies nausea, vomiting. : No signs and/or symptoms were reported regarding the genitourinary system. EENT: No signs and/or symptoms were reported regarding the EENT system. Derm: Skin is intact, Skin is dry, Skin is normal, Skin temperature is warm. Musculoskeletal: Circulation, motion, and sensation intact. Range of motion: intact in all extremities. 06:01 Reassessment: Patient appears in no apparent distress at this time. Patient and/or jd3 family updated on plan of care and expected duration. Pain level reassessed. Patient is alert, oriented x 3, equal unlabored respirations, skin warm/dry/pink. Patient states feeling better. 06:17 Reassessment: Patient appears in no apparent distress at this time. Patient and/or jd3 family updated on plan of care and expected duration. Pain level reassessed. Patient is alert, oriented x 3, equal unlabored respirations, skin warm/dry/pink. pt reported understanding of discharge instructions. even and steady gait upon discharge. Vital Signs: 04:33 BP 116 / 79; Pulse 90; Resp 17 S; Temp 98.7(O); Pulse Ox 100% on R/A; Weight 104.33 kg jd3 (R); Height 5 ft. 6 in. (167.64 cm) (R); Pain 2/10; 06:02 BP 105 / 63; Pulse 78; Resp 17 S; Pulse Ox 100% on R/A; Pain 0/10; jd3 06:02 Temp 98.1(O); jd3 04:33 Body Mass Index 37.12 (104.33 kg, 167.64 cm) jd3 ED Course: 04:17 Patient arrived in ED. ds1 04:29 Mian Powers, CARMEN is Primary Nurse. jd3 04:32 Triage completed. jd3 04:33 Arm band placed on. jd3 04:36 Patient has correct armband on for positive identification. Bed in low position. Call j light in reach. Side rails up X 1. Adult w/ patient. 04:39 Tiago Maxwell MD is Attending Physician. blade 04:56 Initial lab(s) drawn, by me, sent to lab. Urine collected: clean catch specimen, ak1 cloudy, Amount Voided: 100mL. Inserted saline lock: 20 gauge in right antecubital area, using aseptic technique. Blood collected. 05:21 CT Head Brain wo Cont In Process Unspecified. EDMS 06:07 Pablito Galvan MD is Referral Physician. blade 06:18 No provider procedures requiring assistance completed. IV discontinued, intact, jd3 bleeding controlled, No redness/swelling at site. Pressure dressing applied. Administered Medications: 05:01 Drug: NS 0.9% 1000 ml Route: IV; Rate: 1 bolus; Site: right antecubital; jd3 06:18 Follow up: Response: No adverse reaction; IV Status: Completed infusion; IV Intake: jd3 1000ml 05:01 Drug: TORadol 30 mg Route: IVP; Site: right antecubital; jd3 06:00 Follow up: Response: No adverse reaction jd3 05:01 Drug: Reglan 10 mg Route: IVP; Site: right antecubital; jd3 06:00 Follow up: Response: No adverse reaction jd3 05:01 Drug: Benadryl 50 mg Route: IVP; Site: right antecubital; jd3 06:00 Follow up: Response: No adverse reaction jd3 06:13 Drug: Insulin Regular Human 8 units {Co-Signature: ak1 (Stephenie Betancourt RN).} Route: IVP; jd3 Site: right antecubital; 06:19 Follow up: Response: Medication administered at discharge. jd3 Intake: 06:18 IV: 1000ml; Total: 1000ml. jd3 Outcome: 06:07 Discharge ordered by . blade 06:18 Discharged to home ambulatory, with family. jd3 06:18 Condition: stable 06:18 Discharge instructions given to patient, family, Instructed on discharge instructions, follow up and referral plans. medication usage, Demonstrated understanding of instructions, follow-up care, medications, Prescriptions given X 2. 06:20 Patient left the ED. jd3 Signatures: Dispatcher [employer] EDWA Tiago Maxwell MD MD cha Sanford, Amalia ds1 Stephenie Betancourt RN RN ak1 Mian Powers RN RN jd3 Amber Krenek RN ak1 Corrections: (The following items were deleted from the chart) 04:34 04:33 BP 128 / 94; Pulse 90bpm; Resp 17bpm; Spontaneous; Pulse Ox 100% RA; Temp 98.7F jd3 Oral; 104.33 kg Reported; Height 5 ft. 6 in. Reported; BMI: 37.1; Pain 2/10; jd3 06:19 06:02 BP 105 / 63; Pulse 78bpm; Resp 17bpm; Spontaneous; Pulse Ox 100% RA; jd3 jd3
--- NOTE | 2019-08-22 06:09 | EDPHYS ---
Physician Documentation [facility] Name: Felipa Benavides Age: 18 yrs Sex: Female : 2000 Arrival Date: 08/22/2019 Time: 04:17 Bed 6 Private MD: ED Physician Tiago Maxwell HPI: 08/22 04:50 This 18 yrs old Female presents to ER via Ambulatory with complaints of blade Headache. 04:50 The patient complains of pain to the forehead. The patient describes the headache as a blade pressure, throbbing. Onset: The symptoms/episode began/occurred just prior to arrival, this morning. Associated signs and symptoms: The patient has no apparent associated signs or symptoms. Severity of symptoms: At its worst the pain was moderate, in the emergency department the pain is unchanged. Headache History: The patient has had previous headaches and this one is similar to previous episodes. The symptoms are alleviated by nothing. the symptoms are aggravated by nothing. The patient has experienced similar episodes in the past, a few times. 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 - Social history:: Smoking status: Patient/guardian denies using tobacco. - Ebola Screening: : Patient negative for fever greater than or equal to 101.5 degrees Fahrenheit, and additional compatible Ebola Virus Disease symptoms. - Family history:: not pertinent. ROS: 04:50 Constitutional: Negative for fever, chills, and weight loss, Eyes: Negative for injury, blade pain, redness, and discharge, ENT: Negative for injury, pain, and discharge, Neck: Negative for injury, pain, and swelling, Cardiovascular: Negative for chest pain, palpitations, and edema, Respiratory: Negative for shortness of breath, cough, wheezing, and pleuritic chest pain, Abdomen/GI: Negative for abdominal pain, nausea, vomiting, diarrhea, and constipation, Back: Negative for injury and pain, : Negative for injury, bleeding, discharge, and swelling, MS/Extremity: Negative for injury and deformity, Skin: Negative for injury, rash, and discoloration, Psych: Negative for depression, anxiety, suicide ideation, homicidal ideation, and hallucinations, Allergy/Immunology: Negative for hives, rash, and allergies, Endocrine: Negative for neck swelling, polydipsia, polyuria, polyphagia, and marked weight changes, Hematologic/Lymphatic: Negative for swollen nodes, abnormal bleeding, and unusual bruising. 04:50 Neuro: Positive for headache. Exam: 04:50 Constitutional: This is a well developed, well nourished patient who is awake, alert, blade and in no acute distress. Head/Face: Normocephalic, atraumatic. Eyes: Pupils equal round and reactive to light, extra-ocular motions intact. Lids and lashes normal. Conjunctiva and sclera are non-icteric and not injected. Cornea within normal limits. Periorbital areas with no swelling, redness, or edema. ENT: Nares patent. No nasal discharge, no septal abnormalities noted. Tympanic membranes are normal and external auditory canals are clear. Oropharynx with no redness, swelling, or masses, exudates, or evidence of obstruction, uvula midline. Mucous membranes moist. Neck: Trachea midline, no thyromegaly or masses palpated, and no cervical lymphadenopathy. Supple, full range of motion without nuchal rigidity, or vertebral point tenderness. No Meningismus. Chest/axilla: Normal chest wall appearance and motion. Nontender with no deformity. No lesions are appreciated. Cardiovascular: Regular rate and rhythm with a normal S1 and S2. No gallops, murmurs, or rubs. Normal PMI, no JVD. No pulse deficits. Respiratory: Lungs have equal breath sounds bilaterally, clear to auscultation and percussion. No rales, rhonchi or wheezes noted. No increased work of breathing, no retractions or nasal flaring. Abdomen/GI: Soft, non-tender, with normal bowel sounds. No distension or tympany. No guarding or rebound. No evidence of tenderness throughout. Back: No spinal tenderness. No costovertebral tenderness. Full range of motion. Skin: Warm, dry with normal turgor. Normal color with no rashes, no lesions, and no evidence of cellulitis. MS/ Extremity: Pulses equal, no cyanosis. Neurovascular intact. Full, normal range of motion. Neuro: Awake and alert, GCS 15, oriented to person, place, time, and situation. Cranial nerves II-XII grossly intact. Motor strength 5/5 in all extremities. Sensory grossly intact. Cerebellar exam normal. Normal gait. Psych: Awake, alert, with orientation to person, place and time. Behavior, mood, and affect are within normal limits. 04:58 Neck: ROM/movement: is normal, no acute changes, Meningeal signs: are not present, blade Kernig's sign is negative, Brudzinski's sign is negative. Vital Signs: 04:33 BP 116 / 79; Pulse 90; Resp 17 S; Temp 98.7(O); Pulse Ox 100% on R/A; Weight 104.33 kg jd3 (R); Height 5 ft. 6 in. (167.64 cm) (R); Pain 2/10; 06:02 BP 105 / 63; Pulse 78; Resp 17 S; Pulse Ox 100% on R/A; Pain 0/10; jd3 06:02 Temp 98.1(O); jd3 04:33 Body Mass Index 37.12 (104.33 kg, 167.64 cm) jd3 MDM: 04:39 Patient medically screened. [facility] 04:52 Data reviewed: vital signs, nurses notes, lab test result(s), radiologic studies, CT blade scan. 08/22 04:43 Order name: Glucose, Ancillary Testing; Complete Time: 04:50 EDMS 08/22 04:44 Order name: CBC with Diff; Complete Time: 06:05 [facility] 08/22 04:44 Order name: Comprehensive Metabolic Panel; Complete Time: 06:05 [facility] 08/22 04:44 Order name: CT Head Brain wo Cont [facility] 08/22 04:45 Order name: Urine Dipstick--Ancillary (enter results); Complete Time: 06:05 ak1 08/22 04:46 Order name: Urine --Ancillary (enter results); Complete Time: 06:05 ak 08/22 04:44 Order name: Urine Dipstick-Ancillary (obtain specimen); Complete Time: 04:42 [facility] 08/22 04:44 Order name: Urine Test (obtain specimen); Complete Time: 04:42 [facility] 08/22 04:50 Order name: Oxygen; Complete Time: 04:49 blade Administered Medications: 05:01 Drug: NS 0.9% 1000 ml Route: IV; Rate: 1 bolus; Site: right antecubital; jd3 06:18 Follow up: Response: No adverse reaction; IV Status: Completed infusion; IV Intake: jd3 1000ml 05:01 Drug: TORadol 30 mg Route: IVP; Site: right antecubital; jd3 06:00 Follow up: Response: No adverse reaction jd3 05:01 Drug: Reglan 10 mg Route: IVP; Site: right antecubital; jd3 06:00 Follow up: Response: No adverse reaction jd3 05:01 Drug: Benadryl 50 mg Route: IVP; Site: right antecubital; jd3 06:00 Follow up: Response: No adverse reaction jd3 06:13 Drug: Insulin Regular Human 8 units {Co-Signature: [email or web address] (Stephenie Betancourt RN).} Route: IVP; jd3 Site: right antecubital; 06:19 Follow up: Response: Medication administered at discharge. jd3 Disposition: 08/22/19 06:07 Discharged to Home. Impression: Headache, Type 2 diabetes mellitus. - Condition is Stable. - Discharge Instructions: Type 2 Diabetes Mellitus, Diagnosis, Adult, General Headache Without Cause, Migraine Headache, Type 2 Diabetes Mellitus, Diagnosis, Adult, [id number], Type 2 Diabetes Mellitus, Self Care, Adult, Type 2 Diabetes Mellitus, Self Care, Adult, [id number]. - Prescriptions for Fioricet with Codeine 50- 325-40-30 mg Oral capsule - take 1 capsule by ORAL route every 4 hours as needed not to exceed 6 capsules per 24hrs; 24 capsule. Zofran 4 mg Oral Tablet - take 1 tablet by ORAL route every 12 hours As needed; 20 tablet. - Medication Reconciliation Form, Thank You Letter, Antibiotic Education, Prescription Opioid Use form. - Follow up: Private Physician; When: 2 - 3 days; Reason: Recheck today's complaints, Continuance of care, Re-evaluation by your physician. Follow up: Pablito Galvan; When: 2 - 3 days; Reason: Recheck today's complaints, Continuance of care, Re-evaluation by your physician. - Problem is new. - Symptoms have improved. Signatures: Dispatcher [employer] Tiago Cabral MD MD cha Davies Mian, RN RN jd3 Stephenie Betancourt RN ak1 Corrections: (The following items were deleted from the chart) 06:20 06:07 08/22/2019 06:07 Discharged to Home. Impression: Headache; Type 2 diabetes jd3 mellitus. Condition is Stable. Discharge Instructions: Type 2 Diabetes Mellitus, Diagnosis, Adult, General Headache Without Cause, Migraine Headache, Type 2 Diabetes Mellitus, Diagnosis, Adult, [id number], Type 2 Diabetes Mellitus, Self Care, Adult, Type 2 Diabetes Mellitus, Self Care, Adult, [id number]. Prescriptions for Fioricet with Codeine 20-101-90-30 mg Oral capsule - take 1 capsule by ORAL route every 4 hours as needed not to exceed 6 capsules per 24hrs; 24 capsule, Zofran 4 mg Oral Tablet - take 1 tablet by ORAL route every 12 hours As needed; 20 tablet. and Forms are Medication Reconciliation Form, Thank You Letter, Antibiotic Education, Prescription Opioid Use. Follow up: Private Physician; When: 2 - 3 days; Reason: Recheck today's complaints, Continuance of care, Re-evaluation by your physician. Follow up: Pablito Galvan; When: 2 - 3 days; Reason: Recheck today's complaints, Continuance of care, Re-evaluation by your physician. Problem is new. Symptoms have improved. blade
[2019-08-22] MEDS ORDERED: INSULIN -REGULAR HUMAN 50 UNIT/0.5 ML ML ONE (06:13)
[2019-08-22 06:41] VITALS: O2SAT 100
[2019-08-22 06:43] VITALS: BP 105/63; TEMP 98.1
--- NOTE | 2019-08-23 11:12 | RAD REPORT ---
EXAM DESCRIPTION: CT Head Without Intravenous Contrast CLINICAL HISTORY: The patient is 18 years old and is Female; HEADACHE TECHNIQUE: Axial computed tomography images of the head/brain without intravenous contrast. Sagitt al and coronal reformatted images were created and reviewed. This CT exam was performed using one o r more of the following dose reduction techniques: automated exposure control, adjustment of the mA and/or kV according to patient size, and/or use of iterative reconstruction technique. COMPARISON: No relevant prior studies available. FINDINGS: BRAIN: Unremarkable. The dickson-white matter differentiation is preserved . No hemorrhag e. No significant white matter disease. No edema. No extra-axial fluid collections. VENTRICLES: Unremarkable. No ventriculomegaly. BONES/JOINTS: No acute fracture. SOFT TISSUES: Unremarkable. SINUSES: Unremarkable as visualized. No acute sinusitis. MASTOID AIR CELLS: Unremarkable as visualized. No mastoid effusion. ORBITS: Unremarkable as visualized. IMPRESSION: No acute intracranial findings. Electronically signed by: Prerna Ng MD 08/22/2019 5:37 AM MEDICAL ACCOUNTANT Due to temporary technical issues with the PACS/Fluency reporting system, reports are being signed by the in house radiologist as a courtesy to ensure prompt reporting. The interpreting radiologist is f ully responsible for the content of the report.
== END 2019-08-22 06:20 | disposition home or self-care (01) ==
LOC: ER 04:13
DX: R51 Headache (principal); E11.9 Type 2 diabetes mellitus without complications
CPT/HCPCS: 96361; 85025; 36415; 81025; 82947; 81003; 80053; 70450; 96375; 96374; 99284; J2765; J1200; J7030

== ENCOUNTER 2024-03-22 23:16 | Emergency (ER) | payer OTHER, SELFPAY ==
--- OUTSIDE RECORDS SUMMARY | 2024-03-22 23:23 | XMS REPORT | Continuity of Care Document ---
Author Name Unknown Address [address] [facility] [place] [address] [facility] [address] 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 Name Role Phone Nichelle Barnard Primary Care Physician RORY RAHMAN Attending Clinician Unavailable RORY RAHMAN Attending Clinician Unavailable TAWNYA JUNG Attending Clinician Unavailable Tawnya Jung PA-C Attending Clinician [phone] Unknown, Attending Attending Clinician Unavailab JUANJO Mitchell Attending Clinician Unavailable Juanjo Fernández PA-C Attending Clinician [phone] Reji Bermudez Attending Clinician [phone] REJI SANDOVAL Attending Clinician Unavailable Jori Andujar MD Attending Clinician [phone] Ekaterina Scott Attending Clinician [phone] EKATERINA DE LA CRUZ Attending Clinician Unavailable Desiree Hopson MD Attending Clinician [phone] JORI ANDUJAR Attending Clinician Unavailable Doctor Unassigned, Gilbert Attending Clinician U navailNEENA Byrd Attending Clinician Unavailable NEENA MENEZES Attending Clinician Unavailable Coleen Goins Attending Clinician UnavailArnie Polanco MD Attending Clinician Lab, Ang - Db Attending Clinician Unavailable COLEEN CURTIS Attending Clinician Unavailable Kiley Costa RN Attending Clinician Unavailab Tera Mcmullen DO Attending Clinician [phone] RON WAN Attending Clinician UnavailKARLENE Rock Attending Clinician Unavailable Ron Wan MD Attending Clinician [phone] Amy Powers MD Attending Clinician [phone] AMY POWERS Attending Clinician Unavailsonia Ravi ROSS FURNACE OPERATOR, Karlene Attending Clinician [phone] MARIANNA DUMONT Attending Clinician Unavailable Marianna Pearson Attending Clinician [phone] Pob, Adc Lab Main Attending Clinician Unavailalbert Headley, [facility] Attending Clinician Un available Leny Guevara Attending Clinician [phone] LENY PENNINGTON Attending Clinician Unavailable Jenny Moreno MD Attending Clinician [phone] NEENA MENEZES Admitting Clinician Unavailable Payers Payer Name Policy Type Policy Number Effective Date Expirati on Date Source [employer] [id number] 2022 00:00:00 [facility] [id number] 2021 00:00:00 Problems Condition Name Condition Details Condition Category Status Onset Date Resolution Date Last Treatment Date Treating Clinician Comments Source Recurrent UTI Recurrent UTI Disease Active 2019-09 00:00: 00 [facility] Mixed hyperlipid emia Mixed hyperlipid emia Disease Active 2017-09 00:00: 00 [facility] Anxiety and depression Anxiety and depression Disease Active 02-22 00:00: 00 [facility] Obesity (BMI 30-39.9) Obesity (BMI 30-39.9) Disease Active 02-22 00:00: 00 [facility] Diabetes mellitus Diabetes mellitus Disease Active [facility] Uncontroll ed type 2 diabetes mellitus without complicati on, with long-term current use of insulin Uncontroll ed type 2 diabetes mellitus without complicati on, with long-term current use of insulin Disease Resolve d 2017-09 00:00: 00 2020-03-17 00:00:00 2020-03-17 13:24:00 [facility] Allergies, Adverse Reactions, Alerts Allergy Name Allergy Type Status Severity Reaction(s) Onset Date Inactive Date Treating Clinician Comments Source Sulfa (Sulfona mide Antibiot ics) Propensi ty to adverse reaction to drug Active 11-11 00:00: 00 [facility] Bl[facility] Sulfa Antibiot ics - CLASS Propensi ty to adverse reaction to drug Active 11-04 00:00: 00 [facility] Blas Victoza Propensi ty to adverse reaction to drug Inactiv e 09-24 00:00: 00 [facility] Blas SULFUR DRUG INGREDI Active Low N/V 2017-09 00:00: 00 [facility] Sulfur Propensi ty to adverse reaction s Active Nausea and/or Vomiting 2017-09 00:00: 00 [facility] LIRAGLUT DANNIELLE DRUG INGREDI Active Low N/V 2017-09 00:00: 00 [facility] Liraglut dannielle Propensi ty to adverse reaction s to drug Active Nausea and/or Vomiting 2017-09 00:00: 00 [facility] EXENATID E MICROSPH ERES DRUG INGREDI Active Low N/V 02-13 00:00: 00 [facility] Exenatid e Microsph eres Propensi ty to adverse reaction s to drug Active Other - See comments 02-13 00:00: 00 Itchy [facility] Social History Social Habit Start Date Stop Date Quantity Comments Source Sexual orientation [facility] History SDOH Alcohol Frequency [facility] History SDOH Alcohol Std Drinks [facility] History SDOH Alcohol Binge [facility] History of tobacco use Light tobacco smoker [facility] Alcoholic beverage intake 2024-03-16 00:00:00 2024-03-16 00:00:00 0 /d [facility] Alcohol intake 2023-07-14 00:00:00 2023-07-14 00:00:00 0 /d [facility] History of Social function 2023-05-07 00:00:00 2023-05-07 00:00:00 [facility] Exposure to SARS-CoV-2 (event) 2022-12-22 00:00:00 2023-01-01 09:30:00 Not sure [facility] Tobacco use and exposure 2022-12-30 00:00:00 2022-12-30 00:00:00 Smokeless tobacco non-user [facility] Alcohol Comment 2018-05-13 00:00:00 2018-05-13 00:00:00 rare [facility] Sex assigned at 1999 00:00:00 2000 00:00:00 [facility] Smoking Status Start Date Stop Date Source Light tobacco smoker 2022-12-30 00:00:00 [facility] Medications Ordered Medication Name Filled Medication Name Start Date Stop Date Current Medication? Ordering Clinician Indication Dosage Frequency Signature (SIG) Comments Components Source azithromyci n 500 mg tablet 03-16 00:00: 00 03-22 04:59 :00 Yes [id number] 500mg Take 1 tablet by mouth in the morning for 5 days. [facility] fluconazole (DIFLUCAN) 150 mg tablet 03-16 00:00: 00 03-17 04:59 :00 Yes [id number] 150mg Take 1 tablet by mouth once now for 1 dose. [facility] cefdinir 300 mg capsule 02-21 00:00: 00 03-04 04:59 :00 Yes [id number] 600mg Take 2 capsules by mouth in the morning for 10 days. [facility] amoxicillin 500 mg tablet 6-10 00:00: 00 02-19 04:59 :00 Yes [id number] 1000mg Take 2 tablets by mouth in the morning for 10 days. [facility] amoxicillin 500 mg tablet 5-27 00:00: 00 02-05 04:59 :00 Yes [id number] 1000mg Take 2 tablets by mouth in the morning for 10 days. [facility] Tresiba FlexTouch U-100 insulin 100 unit/mL (3 mL) subcutaneou s pen 11-11 00:00: 00 Yes (3 mL) [facility] TAKE 1 TABLET BY MOUTH ONCE DAILY 11-11 00:00: 00 Yes [facility] Blas semaglutide (OZEMPIC) 1 mg/dose (4 mg/3 mL) PnIj 00:00: 00 Yes [id number] 1mg inject 1 mg under the skin weekly. [facility] insulin degludec (TRESIBA FLEXTOUCH U-100) 100 unit/mL (3 mL) InPn 00:00: 00 Yes 50U inject 50 Units under the skin in the morning. [facility] INJECT 50 UNITS SUBCUTANEOU SLY IN THE MORNING 00:00: 00 Yes [facility] Blas TAKE 1 TABLET BY MOUTH THREE TIMES DAILY FOR 7 DAYS 10-08 00:00: 00 Yes [facility] Bl[facility] TAKE BY MOUTH DIRECTED ON INSIDE OF PACKAGE UNTIL ALL TAKEN 10-08 00:00: 00 Yes [facility]mid Blas TAKE 1 TABLET BY MOUTH EVERY 6 TO 8 HOURS NEEDED FOR 7 DAYS 10-08 00:00: 00 Yes [facility] Blas TAKE 1 CAPSULE TWICE DAILY. 10-01 00:00: 00 11-30 00:00 :00 No 100 [facility] Blas metformin ER 500 mg 24 hr tablet 09-17 00:00: 00 Yes [id number] 1000mg Take 2 tablets by mouth in the morning and 2 tablets in the evening. [facility] metformin ER 500 mg tablet,exte nded release 24 hr 09-17 00:00: 00 Yes mg [facility] Bl[facility] insulin degludec (TRESIBA FLEXTOUCH U-100 SC) 2022-09 14:55: 24 Yes 50U inject 50 Units under the skin in the morning. [facility] TAKE 2 TABLETS BY MOUTH IN THE MORNING AND 2 IN THE EVENING 05-29 00:00: 00 Yes [facility] Blas metformin ER 500 mg 24 hr tablet 05-29 00:00: 00 09-17 00:00 :00 No [id number] 1000mg Take 2 tablets by mouth in the morning and 2 tablets in the evening. [facility] TAKE 1 TABLET TWICE DAILY. 11-07 00:00: 00 11-30 00:00 :00 No 1000 [facility] Blas INJECT 1 MG WEEKLY SUBCUTANEOU SLY 11-04 00:00: 00 11-30 00:00 :00 No 43 [facility] Blas TAKE 1 TABLET TWICE DAILY. 11-04 00:00: 00 11-30 00:00 :00 No 1000 [facility] TAKE 1 TABLET NOW, AND REPEAT IN 4 DAYS. 10-28 00:00: 00 11-30 00:00 :00 No 150 [facility] Blas TAKE 1 CAPSULE TWICE DAILY UNTIL GONE. 10-28 00:00: 00 11-30 00:00 :00 No 100 [facility] Blas TAKE 2 TABLETS BY MOUTH IN THE MORNING AND 2 IN THE EVENING 2021-09 00:00: 00 Yes [facility]mid Blas TAKE 1 TABLET BY MOUTH ONCE TODAY AND SECOND TABLET IN 3 DAYS. 2021-09 00:00: 00 11-30 00:00 :00 No [facility] Bl[facility] metformin ER 500 mg 24 hr tablet 2021-09 00:00: 00 05-28 00:00 :00 No [id number] 1000mg Take 2 tablets by mouth in the morning and 2 tablets in the evening. [facility] insulin glargine U-300 conc (TOUJEO MAX U-300 SOLOSTAR) 300 unit/mL (3 mL) InPn 8- 00:00: 00 Yes [id number] 48U inject 48 Units under the skin daily. [facility] semaglutide (OZEMPIC) 1 mg/dose (4 mg/3 mL) PnIj 03-28 00:00: 00 00:00 :00 No [id number] 1mg inject 1 mg under the skin weekly. [facility] insulin degludec (TRESIBA FLEXTOUCH U-200) 200 unit/mL (3 mL) [facility] 03-28 00:00: 00 03-28 00:00 :00 No [id number] 48U inject 48 Units under the skin daily. [facility] RINSE WITH 15ML FOR 30 SECONDS AND SPIT, USE TWICE DAILY AFTER BRUSHING AND FLOSSING . AVOID EATING OR DRINKING FOR 30 MINUTES. 02-27 00:00: 00 Yes [facility] Blas TAKE 1 TABLET BY MOUTH EVERY 8 HOURS NEEDED FOR PAIN 02-27 00:00: 00 Yes [facility] Blas TAKE 1 CAPSULE BY MOUTH EVERY 8 HOURS UNTIL GONE 02-27 00:00: 00 Yes [facility] Blas ondansetron (ZOFRAN) 4 mg tablet 01-18 00:00: 00 Yes [id number] 4mg Take 1 tablet by mouth every 8 (eight) hours as needed for Nausea and Vomiting (N/V). [facility] Insulin Osmond, Disposable, (NOVOFINE 32) 32 gauge x 1/4" Iale 11-27 00:00: 00 Yes [id number] Use Daily with Xultophy. DX:E11.9 [facility] Insulin Osmond, Disposable, (NOVOFINE 32) 32 gauge x 1/4" Iale 11-27 00:00: 00 Yes [id number] Use Daily with Xultophy. DX:E11.9 [facility] insulin degludec-li raglutide (XULTOPHY 100/3.6) 100 unit-3.6 mg /mL (3 mL) [facility] 11-27 00:00: 00 03-28 00:00 :00 No [id number] 50U inject 50 Units under the skin daily. [facility] IBUPROFEN (MOTRIN ORAL) 2020-09 09:24: 53 Yes [id number] Take by mouth. [facility] insulin degludec (TRESIBA FLEXTOUCH U-100 SC) 2020-09 09:24: 53 Yes [id number] 50U inject 50 Units under the skin in the morning. [facility] metformin ER 500 mg 24 hr tablet 2020-09 2-13 00:00: 00 08-02 00:00 :00 No [id number] 1000mg Take 2 tablets by mouth 2 (two) times daily. [facility] Nitrofurant oin&Nit. Macrocryst (MACROBID) 100 mg capsule 2019-09 2-15 00:00: 00 Yes 1 po bid x 7 days then 1 po before sexual relations every time [facility] Insulin Osmond, Disposable, (PEN NEEDLE) 31 gauge x 5/16" Ndle 2017-09 0 00:00: 00 Yes [id number] Taking 2 injection daily [facility] Insulin Osmond, Disposable, (PEN NEEDLE) 31 gauge x 5/16" Ndle 2017-09 0 00:00: 00 Yes [id number] Taking 2 injection daily [facility] acetone, urine, test (KETONE URINE TEST) strip 10-31 00:00: 00 Yes [id number] Check ketones if blood sugar >300 or if ill prn [facility] acetone, urine, test (KETONE URINE TEST) strip 10-31 00:00: 00 Yes [id number] Check ketones if blood sugar >300 or if ill prn [facility] Prozac 20 mg capsule 12-31 00:00: 00 Yes 1mg [facility] Bl[facility] Prozac 20 mg capsule -19 00:00: 00 Yes 1mg Omid Sheron Wan Prozac 10 mg capsule - 00:00: 00 Yes 1mg Omid Sheron Blas Immunizations Ordered Immunization Name Filled Immunization Name Date Status Comments Source Influenza, injectable, Madin Mone Canine Kidney, preservative-free, quadrivalent Influenza, injectable, Madin [place] Canine Kidney, preservative-free, quadrivalent 2024-02-03 00:00:00 Completed [facility] Influenza Virus Vaccine Quad IM, Preserv and ABX Free 6 MO-64 YRS 2022-08-12 00:00:00 Completed [facility] Influenza Virus Vaccine Quad IM, Preserv and ABX Free 6 MO-64 YRS 2022-08-12 00:00:00 Completed [facility] Influenza Virus Vaccine Quad IM, Preserv and ABX Free 6 MO-64 YRS 2022-08-12 00:00:00 Completed [facility] Influenza Virus Vaccine Quad IM, Preserv and ABX Free 6 MO-64 YRS 2022-08-12 00:00:00 Completed [facility] Influenza Virus Vaccine Quad IM, Preserv and ABX Free 6 MO-64 YRS 2022-08-12 00:00:00 Completed [facility] Influenza Virus Vaccine Quad IM, Preserv and ABX Free 6 MO-64 YRS 2022-08-12 00:00:00 Completed [facility] Influenza Virus Vaccine Quad IM, Preserv and ABX Free 6 MO-64 YRS 2022-08-12 00:00:00 Completed [facility] Influenza Virus Vaccine Quad IM, Preserv and ABX Free 6 MO-64 YRS 2022-08-12 00:00:00 Completed [facility] Influenza Virus Vaccine Quad IM, Preserv and ABX Free 6 MO-64 YRS 2022-08-12 00:00:00 Completed [facility] Influenza Virus Vaccine Quad IM, Preserv and ABX Free 6 MO-64 YRS 2022-08-12 00:00:00 Completed [facility] Influenza Virus Vaccine Quad IM, Preserv and ABX Free 6 MO-64 YRS 2022-08-12 00:00:00 Completed [facility] Influenza Virus Vaccine Quad IM, Preserv and ABX Free 6 MO-64 YRS 2022-08-12 00:00:00 Completed [facility] Influenza Virus Vaccine Quad IM, Preserv and ABX Free 6 MO-64 YRS 2022-08-12 00:00:00 Completed [facility] Influenza Virus Vaccine Quad IM, Preserv and ABX Free 6 MO-64 YRS 2022-08-12 00:00:00 Completed [facility] Influenza Virus Vaccine Quad IM, Preserv and ABX Free 6 MO-64 YRS 2022-08-12 00:00:00 Completed [facility] Influenza Virus Vaccine Quad IM, Preserv and ABX Free 6 MO-64 YRS 2022-08-12 00:00:00 Completed [facility] Influenza Virus Vaccine Quad IM, Preserv and ABX Free 6 MO-64 YRS 2022-08-12 00:00:00 Completed [facility] Influenza Virus Vaccine Quad IM, Preserv and ABX Free 6 MO-64 YRS 2022-08-12 00:00:00 Completed [facility] Moderna COVID-19 Vaccine Moderna COVID-19 Vaccine 2021-01-15 00:00:00 Completed [facility] Moderna COVID-19 Vaccine Moderna COVID-19 Vaccine 2020-12-15 00:00:00 Completed [facility] Influenza Virus Vaccine Quad .5 mL IM 6+ MO 2020-05-30 00:00:00 Completed [facility] Influenza Virus Vaccine Quad .5 mL IM 6+ MO 2020-05-30 00:00:00 Completed [facility] Influenza Virus Vaccine Quad .5 mL IM 6+ MO 2020-05-30 00:00:00 Completed [facility] Influenza Virus Vaccine Quad .5 mL IM 6+ MO 2020-05-30 00:00:00 Completed [facility] Influenza Virus Vaccine Quad .5 mL IM 6+ MO 2020-05-30 00:00:00 Completed [facility] Influenza Virus Vaccine Quad .5 mL IM 6+ MO 2020-05-30 00:00:00 Completed [facility] Influenza Virus Vaccine Quad .5 mL IM 6+ MO 2020-05-30 00:00:00 Completed [facility] Influenza Virus Vaccine Quad .5 mL IM 6+ MO 2020-05-30 00:00:00 Completed [facility] Influenza Virus Vaccine Quad .5 mL IM 6+ MO 2020-05-30 00:00:00 Completed [facility] Influenza Virus Vaccine Quad .5 mL IM 6+ MO 2020-05-30 00:00:00 Completed [facility] Influenza Virus Vaccine Quad .5 mL IM 6+ MO 2020-05-30 00:00:00 Completed [facility] Influenza Virus Vaccine Quad .5 mL IM 6+ MO 2020-05-30 00:00:00 Completed [facility] Influenza Virus Vaccine Quad .5 mL IM 6+ MO 2020-05-30 00:00:00 Completed [facility] Influenza Virus Vaccine Quad .5 mL IM 6+ MO 2020-05-30 00:00:00 Completed [facility] Influenza Virus Vaccine Quad .5 mL IM 6+ MO 2020-05-30 00:00:00 Completed [facility] Influenza Virus Vaccine Quad .5 mL IM 6+ MO 2020-05-30 00:00:00 Completed [facility] Influenza Virus Vaccine Quad .5 mL IM 6+ MO 2020-05-30 00:00:00 Completed [facility] Influenza Virus Vaccine Quad .5 mL IM 6+ MO 2020-05-30 00:00:00 Completed [facility] Influenza Virus Vaccine Quad .5 mL IM 6+ MO 2020-05-30 00:00:00 Completed [facility] Influenza Virus Vaccine Quad .5 mL IM 6+ MO 2020-05-30 00:00:00 Completed [facility] Influenza Virus Vaccine Quad .5 mL IM 6+ MO 2020-05-30 00:00:00 Completed [facility] Influenza Virus Vaccine Quad .5 mL IM 6+ MO 2020-05-30 00:00:00 Completed [facility] Influenza Virus Vaccine Quad .5 mL IM 6+ MO 2020-05-30 00:00:00 Completed [facility] Influenza Virus Vaccine Quad .5 mL IM 6+ MO 2020-05-30 00:00:00 Completed [facility] Influenza Virus Vaccine Quad .5 mL IM 6+ MO 2020-05-30 00:00:00 Completed [facility] Influenza Virus Vaccine Quad .5 mL IM 6+ MO 2020-05-30 00:00:00 Completed [facility] Influenza Virus Vaccine Quad .5 mL IM 6+ MO 2020-05-30 00:00:00 Completed [facility] Influenza Virus Vaccine Quad .5 mL IM 6+ MO 2020-05-30 00:00:00 Completed [facility] Influenza Virus Vaccine Quad .5 mL IM 6+ MO 2020-05-30 00:00:00 Completed [facility] HIB 4 Dose Schedule Unknown Completed [facility] HIB 4 Dose Schedule Unknown Completed [facility] HIB 4 Dose Schedule Unknown Completed [facility] HIB 4 Dose Schedule Unknown Completed [facility] Hep B, Adol or Pedi Dosage Unknown Completed [facility] Hep B, Adol or Pedi Dosage Unknown Completed [facility] Hep B, Adol or Pedi Dosage Unknown Completed [facility] Flu Whole Virus Unknown Completed [facility] DTaP, Unspecified Formulation Unknown Completed [facility] DTaP, Unspecified Formulation Unknown Completed [facility] DTaP, Unspecified Formulation Unknown Completed [facility] DTaP, Unspecified Formulation Unknown Completed [facility] DTaP, Unspecified Formulation Unknown Completed [facility] SARS-COV-2 COVID-19 VACCINE - (MODERNA) Unknown Completed [facility] SARS-COV-2 COVID-19 VACCINE - (MODERNA) Unknown Completed [facility] SARS-COV-2 COVID-19 VACCINE - (MODERNA) Unknown Completed [facility] Influenza Virus Vaccine Quad .5 mL IM 6+ MO (FLUZONE/FLULAVAL/FL UARIX) Unknown Completed [facility] Influenza Virus Vaccine Quad IM, Preserv and ABX Free 6 MO-64 YRS (FLUCELVAX) Unknown Completed [facility] Influenza Virus Vaccine Quad .5 mL IM 6+ MO (FLUZONE/FLULAVAL/FL UARIX) Unknown Completed [facility] Varicella (varivax)(chicken pox) Unknown Completed [facility] IPV Unknown Completed [facility] IPV Unknown Completed [facility] IPV Unknown Completed [facility] IPV Unknown Completed [facility] Pneumococcal 7 Conjugate, PCV7 (Prevnar7) Unknown Completed [facility] MMR Unknown Completed [facility] MMR Unknown Completed [facility] Meningococcal Polysaccharide (groups A, C, Y and W-135) conjugate vaccine (MCV4P) Unknown Completed [facility] Meningococcal Polysaccharide (groups A, C, Y and W-135) conjugate vaccine (MCV4P) Unknown Completed [facility] HIB 4 Dose Schedule Unknown Completed [facility] HIB 4 Dose Schedule Unknown Completed [facility] HIB 4 Dose Schedule Unknown Completed [facility] HIB 4 Dose Schedule Unknown Completed [facility] Hep B, Adol or Pedi Dosage Unknown Completed [facility] Hep B, Adol or Pedi Dosage Unknown Completed [facility] Hep B, Adol or Pedi Dosage Unknown Completed [facility] Flu Whole Virus Unknown [facility] DTaP, Unspecified Formulation Unknown Completed [facility] DTaP, Unspecified Formulation Unknown Completed [facility] DTaP, Unspecified Formulation Unknown Completed [facility] DTaP, Unspecified Formulation Unknown Completed [facility] DTaP, Unspecified Formulation Unknown Completed [facility] SARS-COV-2 COVID-19 VACCINE - (MODERNA) Unknown Completed [facility] SARS-COV-2 COVID-19 VACCINE - (MODERNA) Unknown Completed [facility] SARS-COV-2 COVID-19 VACCINE - (MODERNA) Unknown Completed [facility] Influenza Virus Vaccine Quad .5 mL IM 6+ MO (FLUZONE/FLULAVAL/FL UARIX) Unknown Completed [facility] Influenza Virus Vaccine Quad IM, Preserv and ABX Free 6 MO-64 YRS (FLUCELVAX) Unknown Completed [facility] Influenza Virus Vaccine Quad .5 mL IM 6+ MO (FLUZONE/FLULAVAL/FL UARIX) Unknown Completed [facility] Varicella (varivax)(chicken pox) Unknown Completed [facility] IPV Unknown Completed [facility] IPV Unknown Completed [facility] IPV Unknown Completed [facility] IPV Unknown Completed [facility] Pneumococcal 7 Conjugate, PCV7 (Prevnar7) Unknown Completed [facility] MMR Unknown Completed [facility] MMR Unknown Completed [facility] Meningococcal Polysaccharide (groups A, C, Y and W-135) conjugate vaccine (MCV4P) Unknown Completed [facility] Meningococcal Polysaccharide (groups A, C, Y and W-135) conjugate vaccine (MCV4P) Unknown Completed [facility] HIB 4 Dose Schedule Unknown Completed [facility] HIB 4 Dose Schedule Unknown Completed [facility] HIB 4 Dose Schedule Unknown Completed [facility] HIB 4 Dose Schedule Unknown Completed [facility] Hep B, Adol or Pedi Dosage Unknown Completed [facility] Hep B, Adol or Pedi Dosage Unknown Completed [facility] Hep B, Adol or Pedi Dosage Unknown Completed [facility] Flu Whole Virus Unknown Completed [facility] DTaP, Unspecified Formulation Unknown Completed [facility] DTaP, Unspecified Formulation Unknown Completed [facility] DTaP, Unspecified Formulation Unknown Completed [facility] DTaP, Unspecified Formulation Unknown Completed [facility] DTaP, Unspecified Formulation Unknown Completed [facility] SARS-COV-2 COVID-19 VACCINE - (MODERNA) Unknown Completed [facility] SARS-COV-2 COVID-19 VACCINE - (MODERNA) Unknown Completed [facility] SARS-COV-2 COVID-19 VACCINE - (MODERNA) Unknown Completed [facility] Influenza Virus Vaccine Quad .5 mL IM 6+ [place] (FLUZONE/FLULAVAL/FL UARIX) Unknown Completed [facility] Influenza Virus Vaccine Quad IM, Preserv and ABX Free 6 MO-64 YRS (FLUCELVAX) Unknown Completed [facility] Influenza Virus Vaccine Quad .5 mL IM 6+ MO (FLUZONE/FLULAVAL/FL UARIX) Unknown Completed [facility] Varicella (varivax)(chicken pox) Unknown Completed [facility] IPV Unknown Completed [facility] IPV Unknown Completed [facility] IPV Unknown Completed [facility] IPV Unknown Completed [facility] Pneumococcal 7 Conjugate, PCV7 (Prevnar7) Unknown Completed [facility] MMR Unknown Completed [facility] MMR Unknown Completed [facility] Meningococcal Polysaccharide (groups A, C, Y and W-135) conjugate vaccine (MCV4P) Unknown Completed [facility] Meningococcal Polysaccharide (groups A, C, Y and W-135) conjugate vaccine (MCV4P) Unknown Completed [facility] HIB 4 Dose Schedule Unknown Completed [facility] HIB 4 Dose Schedule Unknown Completed [facility] HIB 4 Dose Schedule Unknown Completed [facility] HIB 4 Dose Schedule Unknown Completed [facility] Hep B, Adol or Pedi Dosage Unknown Completed [facility] Hep B, Adol or Pedi Dosage Unknown Completed [facility] Hep B, Adol or Pedi Dosage Unknown Completed [facility] Flu Whole Virus Unknown Completed [facility] DTaP, Unspecified Formulation Unknown Completed [facility] DTaP, Unspecified Formulation Unknown Completed [facility] DTaP, Unspecified Formulation Unknown Completed [facility] DTaP, Unspecified Formulation Unknown Completed [facility] DTaP, Unspecified Formulation Unknown Completed [facility] SARS-COV-2 COVID-19 VACCINE - (MODERNA) Unknown Completed [facility] SARS-COV-2 COVID-19 VACCINE - (MODERNA) Unknown Completed [facility] SARS-COV-2 COVID-19 VACCINE - (MODERNA) Unknown Completed [facility] Influenza Virus Vaccine Quad .5 mL IM 6+ MO (FLUZONE/FLULAVAL/FL UARIX) Unknown Completed [facility] Influenza Virus Vaccine Quad IM, Preserv and ABX Free 6 MO-64 YRS (FLUCELVAX) Unknown Completed [facility] Influenza Virus Vaccine Quad .5 mL IM 6+ MO (FLUZONE/FLULAVAL/FL UARIX) Unknown Completed [facility] Varicella (varivax)(chicken pox) Unknown Completed [facility] IPV Unknown Completed [facility] IPV Unknown Completed [facility] IPV Unknown Completed [facility] IPV Unknown Completed [facility] Pneumococcal 7 Conjugate, PCV7 (Prevnar7) Unknown Completed [facility] MMR Unknown Completed [facility] MMR Unknown Completed [facility] Meningococcal Polysaccharide (groups A, C, Y and W-135) conjugate vaccine (MCV4P) Unknown Completed [facility] Meningococcal Polysaccharide (groups A, C, Y and W-135) conjugate vaccine (MCV4P) Unknown Completed [facility] HIB 4 Dose Schedule Unknown Completed [facility] HIB 4 Dose Schedule Unknown Completed [facility] HIB 4 Dose Schedule Unknown Completed [facility] HIB 4 Dose Schedule Unknown Completed [facility] Hep B, Adol or Pedi Dosage Unknown Completed [facility] Hep B, Adol or Pedi Dosage Unknown Completed [facility] Hep B, Adol or Pedi Dosage Unknown Completed [facility] Flu Whole Virus Unknown Completed [facility] DTaP, Unspecified Formulation Unknown Completed [facility] DTaP, Unspecified Formulation Unknown Completed [facility] DTaP, Unspecified Formulation Unknown Completed [facility] DTaP, Unspecified Formulation Unknown Completed [facility] DTaP, Unspecified Formulation Unknown Completed [facility] SARS-COV-2 COVID-19 VACCINE - (MODERNA) Unknown Completed [facility] SARS-COV-2 COVID-19 VACCINE - (MODERNA) Unknown Completed [facility] SARS-COV-2 COVID-19 VACCINE - (MODERNA) Unknown Completed [facility] Influenza Virus Vaccine Quad .5 mL IM 6+ MO (FLUZONE/FLULAVAL/FL UARIX) Unknown Completed [facility] Influenza Virus Vaccine Quad IM, Preserv and ABX Free 6 MO-64 YRS (FLUCELVAX) Unknown Completed [facility] Influenza Virus Vaccine Quad .5 mL IM 6+ MO (FLUZONE/FLULAVAL/FL UARIX) Unknown Completed [facility] Varicella (varivax)(chicken pox) Unknown Completed [facility] IPV Unknown Completed [facility] IPV Unknown Completed [facility] IPV Unknown Completed [facility] IPV Unknown Completed [facility] Pneumococcal 7 Conjugate, PCV7 (Prevnar7) Unknown Completed [facility] MMR Unknown Completed [facility] MMR Unknown Completed [facility] Meningococcal Polysaccharide (groups A, C, Y and W-135) conjugate vaccine (MCV4P) Unknown Completed [facility] Meningococcal Polysaccharide (groups A, C, Y and W-135) conjugate vaccine (MCV4P) Unknown Completed [facility] HIB 4 Dose Schedule Unknown Completed [facility] HIB 4 Dose Schedule Unknown Completed [facility] HIB 4 Dose Schedule Unknown Completed [facility] HIB 4 Dose Schedule Unknown Completed [facility] Hep B, Adol or Pedi Dosage Unknown Completed [facility] Hep B, Adol or Pedi Dosage Unknown Completed [facility] Hep B, Adol or Pedi Dosage Unknown Completed [facility] Flu Whole Virus Unknown Completed [facility] DTaP, Unspecified Formulation Unknown Completed [facility] DTaP, Unspecified Formulation Unknown Completed [facility] DTaP, Unspecified Formulation Unknown Completed [facility] DTaP, Unspecified Formulation Unknown Completed [facility] DTaP, Unspecified Formulation Unknown Completed [facility] SARS-COV-2 COVID-19 VACCINE - (MODERNA) Unknown Completed [facility] SARS-COV-2 COVID-19 VACCINE - (MODERNA) Unknown Completed [facility] SARS-COV-2 COVID-19 VACCINE - (MODERNA) Unknown Completed [facility] Influenza Virus Vaccine Quad .5 mL IM 6+ MO (FLUZONE/FLULAVAL/FL UARIX) Unknown Completed [facility] Influenza Virus Vaccine Quad IM, Preserv and ABX Free 6 MO-64 YRS (FLUCELVAX) Unknown Completed [facility] Influenza Virus Vaccine Quad .5 mL IM 6+ MO (FLUZONE/FLULAVAL/FL UARIX) Unknown Completed [facility] Influenza Virus Vaccine Quad IM, Preserv and ABX Free 6 MO-64 YRS (FLUCELVAX) Unknown Completed [facility] Influenza Virus Vaccine Quad .5 mL IM 6+ MO (FLUZONE/FLULAVAL/FL UARIX) Unknown Completed [facility] Influenza Virus Vaccine Quad IM, Preserv and ABX Free 6 MO-64 YRS (FLUCELVAX) Unknown Completed [facility] Influenza Virus Vaccine Quad .5 mL IM 6+ MO (FLUZONE/FLULAVAL/FL UARIX) Unknown Completed [facility] Influenza Virus Vaccine Quad .5 mL IM 6+ MO (FLUZONE/FLULAVAL/FL UARIX) Unknown Completed [facility] Influenza Virus Vaccine Quad IM, Preserv and ABX Free 6 MO-64 YRS (FLUCELVAX) Unknown Completed [facility] Influenza Virus Vaccine Quad .5 mL IM 6+ MO (FLUZONE/FLULAVAL/FL UARIX) Unknown Completed [facility] Influenza Virus Vaccine Quad IM, Preserv and ABX Free 6 MO-64 YRS (FLUCELVAX) Unknown Completed [facility] Influenza Virus Vaccine Quad .5 mL IM 6+ MO (FLUZONE/FLULAVAL/FL UARIX) Unknown Completed [facility] Varicella (varivax)(chicken pox) Unknown Completed [facility] IPV Unknown Completed [facility] IPV Unknown Completed [facility] IPV Unknown Completed [facility] IPV Unknown Completed [facility] Pneumococcal 7 Conjugate, PCV7 (Prevnar7) Unknown Completed [facility] MMR Unknown Completed [facility] MMR Unknown Completed [facility] Meningococcal Polysaccharide (groups A, C, Y and W-135) conjugate vaccine (MCV4P) Unknown Completed [facility] Meningococcal Polysaccharide (groups A, C, Y and W-135) conjugate vaccine (MCV4P) Unknown Completed [facility] HIB 4 Dose Schedule Unknown Completed [facility] HIB 4 Dose Schedule Unknown Completed [facility] HIB 4 Dose Schedule Unknown Completed [facility] HIB 4 Dose Schedule Unknown Completed [facility] Hep B, Adol or Pedi Dosage Unknown Completed [facility] Hep B, Adol or Pedi Dosage Unknown Completed [facility] Hep B, Adol or Pedi Dosage Unknown Completed [facility] Flu Whole Virus Unknown Completed [facility] DTaP, Unspecified Formulation Unknown Completed [facility] DTaP, Unspecified Formulation Unknown Completed [facility] DTaP, Unspecified Formulation Unknown Completed [facility] DTaP, Unspecified Formulation Unknown Completed [facility] DTaP, Unspecified Formulation Unknown Completed [facility] SARS-COV-2 COVID-19 VACCINE - (MODERNA) Unknown Completed [facility] SARS-COV-2 COVID-19 VACCINE - (MODERNA) Unknown Completed [facility] SARS-COV-2 COVID-19 VACCINE - (MODERNA) Unknown Completed [facility] Influenza Virus Vaccine Quad .5 mL IM 6+ MO (FLUZONE/FLULAVAL/FL UARIX) Unknown Completed [facility] Influenza Virus Vaccine Quad IM, Preserv and ABX Free 6 MO-64 YRS (FLUCELVAX) Unknown Completed [facility] Influenza Virus Vaccine Quad .5 mL IM 6+ MO (FLUZONE/FLULAVAL/FL UARIX) Unknown Completed [facility] Varicella (varivax)(chicken pox) Unknown Completed [facility] IPV Unknown Completed [facility] IPV Unknown Completed [facility] IPV Unknown Completed [facility] IPV Unknown Completed [facility] Pneumococcal 7 Conjugate, PCV7 (Prevnar7) Unknown Completed [facility] MMR Unknown Completed [facility] MMR Unknown Completed [facility] Meningococcal Polysaccharide (groups A, C, Y and W-135) conjugate vaccine (MCV4P) Unknown Completed [facility] Meningococcal Polysaccharide (groups A, C, Y and W-135) conjugate vaccine (MCV4P) Unknown Completed [facility] HIB 4 Dose Schedule Unknown Completed [facility] HIB 4 Dose Schedule Unknown Completed [facility] HIB 4 Dose Schedule Unknown Completed [facility] HIB 4 Dose Schedule Unknown Completed [facility] Hep B, Adol or Pedi Dosage Unknown Completed [facility] Hep B, Adol or Pedi Dosage Unknown Completed [facility] Hep B, Adol or Pedi Dosage Unknown Completed [facility] Flu Whole Virus Unknown Completed [facility] DTaP, Unspecified Formulation Unknown Completed [facility] DTaP, Unspecified Formulation Unknown Completed [facility] DTaP, Unspecified Formulation Unknown Completed [facility] DTaP, Unspecified Formulation Unknown Completed [facility] DTaP, Unspecified Formulation Unknown Completed [facility] SARS-COV-2 COVID-19 VACCINE - (MODERNA) Unknown Completed [facility] SARS-COV-2 COVID-19 VACCINE - (MODERNA) Unknown Completed [facility] SARS-COV-2 COVID-19 VACCINE - (MODERNA) Unknown Completed [facility] Influenza Virus Vaccine Quad .5 mL IM 6+ MO (FLUZONE/FLULAVAL/FL UARIX) Unknown Completed [facility] Influenza Virus Vaccine Quad IM, Preserv and ABX Free 6 MO-64 YRS (FLUCELVAX) Unknown Completed [facility] Influenza Virus Vaccine Quad .5 mL IM 6+ MO (FLUZONE/FLULAVAL/FL UARIX) Unknown Completed [facility] Varicella (varivax)(chicken pox) Unknown Completed [facility] IPV Unknown Completed [facility] IPV Unknown Completed [facility] IPV Unknown Completed [facility] IPV Unknown Completed [facility] Pneumococcal 7 Conjugate, PCV7 (Prevnar7) Unknown Completed [facility] MMR Unknown Completed [facility] MMR Unknown Completed [facility] Meningococcal Polysaccharide (groups A, C, Y and W-135) conjugate vaccine (MCV4P) Unknown Completed [facility] Meningococcal Polysaccharide (groups A, C, Y and W-135) conjugate vaccine (MCV4P) Unknown Completed [facility] HIB 4 Dose Schedule Unknown Completed [facility] HIB 4 Dose Schedule Unknown Completed [facility] HIB 4 Dose Schedule Unknown Completed [facility] HIB 4 Dose Schedule Unknown Completed [facility] Hep B, Adol or Pedi Dosage Unknown Completed [facility] Hep B, Adol or Pedi Dosage Unknown Completed [facility] Hep B, Adol or Pedi Dosage Unknown Completed [facility] Flu Whole Virus Unknown Completed [facility] DTaP, Unspecified Formulation Unknown Completed [facility] DTaP, Unspecified Formulation Unknown Completed [facility] DTaP, Unspecified Formulation Unknown Completed [facility] DTaP, Unspecified Formulation Unknown Completed [facility] DTaP, Unspecified Formulation Unknown Completed [facility] SARS-COV-2 COVID-19 VACCINE - (MODERNA) Unknown Completed [facility] SARS-COV-2 COVID-19 VACCINE - (MODERNA) Unknown Completed [facility] SARS-COV-2 COVID-19 VACCINE - (MODERNA) Unknown Completed [facility] Influenza Virus Vaccine Quad .5 mL IM 6+ MO (FLUZONE/FLULAVAL/FL UARIX) Unknown Completed [facility] Influenza Virus Vaccine Quad IM, Preserv and ABX Free 6 MO-64 YRS (FLUCELVAX) Unknown Completed [facility] Influenza Virus Vaccine Quad .5 mL IM 6+ MO (FLUZONE/FLULAVAL/FL UARIX) Unknown Completed [facility] Varicella (varivax)(chicken pox) Unknown Completed [facility] IPV Unknown Completed [facility] IPV Unknown Completed [facility] IPV Unknown Completed [facility] IPV Unknown Completed [facility] Pneumococcal 7 Conjugate, PCV7 (Prevnar7) Unknown Completed [facility] MMR Unknown Completed [facility] MMR Unknown Completed [facility] Meningococcal Polysaccharide (groups A, C, Y and W-135) conjugate vaccine (MCV4P) Unknown Completed [facility] Meningococcal Polysaccharide (groups A, C, Y and W-135) conjugate vaccine (MCV4P) Unknown Completed [facility] HIB 4 Dose Schedule Unknown Completed [facility] HIB 4 Dose Schedule Unknown Completed [facility] HIB 4 Dose Schedule Unknown Completed [facility] HIB 4 Dose Schedule Unknown Completed [facility] Hep B, Adol or Pedi Dosage Unknown Completed [facility] Hep B, Adol or Pedi Dosage Unknown Completed [facility] Hep B, Adol or Pedi Dosage Unknown Completed [facility] Flu Whole Virus Unknown Completed [facility] DTaP, Unspecified Formulation Unknown Completed [facility] DTaP, Unspecified Formulation Unknown Completed [facility] DTaP, Unspecified Formulation Unknown Completed [facility] DTaP, Unspecified Formulation Unknown Completed [facility] DTaP, Unspecified Formulation Unknown Completed [facility] SARS-COV-2 COVID-19 VACCINE - (MODERNA) Unknown Completed [facility] SARS-COV-2 COVID-19 VACCINE - (MODERNA) Unknown Completed [facility] SARS-COV-2 COVID-19 VACCINE - (MODERNA) Unknown Completed [facility] Influenza Virus Vaccine Quad .5 mL IM 6+ MO (FLUZONE/FLULAVAL/FL UARIX) Unknown Completed [facility] Influenza Virus Vaccine Quad IM, Preserv and ABX Free 6 MO-64 YRS (FLUCELVAX) Unknown Completed [facility] Influenza Virus Vaccine Quad .5 mL IM 6+ MO (FLUZONE/FLULAVAL/FL UARIX) Unknown Completed [facility] Varicella (varivax)(chicken pox) Unknown Completed [facility] IPV Unknown Completed [facility] IPV Unknown Completed [facility] IPV Unknown Completed [facility] IPV Unknown Completed [facility] Pneumococcal 7 Conjugate, PCV7 (Prevnar7) Unknown Completed [facility] MMR Unknown Completed [facility] MMR Unknown Completed [facility] Meningococcal Polysaccharide (groups A, C, Y and W-135) conjugate vaccine (MCV4P) Unknown Completed [facility] Meningococcal Polysaccharide (groups A, C, Y and W-135) conjugate vaccine (MCV4P) Unknown Completed [facility] HIB 4 Dose Schedule Unknown Completed [facility] HIB 4 Dose Schedule Unknown Completed [facility] HIB 4 Dose Schedule Unknown Completed [facility] HIB 4 Dose Schedule Unknown Completed [facility] Hep B, Adol or Pedi Dosage Unknown Completed [facility] Hep B, Adol or Pedi Dosage Unknown Completed [facility] Hep B, Adol or Pedi Dosage Unknown Completed [facility] Flu Whole Virus Unknown Completed [facility] DTaP, Unspecified Formulation Unknown Completed [facility] DTaP, Unspecified Formulation Unknown Completed [facility] DTaP, Unspecified Formulation Unknown Completed [facility] DTaP, Unspecified Formulation Unknown Completed [facility] DTaP, Unspecified Formulation Unknown Completed [facility] SARS-COV-2 COVID-19 VACCINE - (MODERNA) Unknown Completed [facility] SARS-COV-2 COVID-19 VACCINE - (MODERNA) Unknown Completed [facility] SARS-COV-2 COVID-19 VACCINE - (MODERNA) Unknown Completed [facility] Influenza Virus Vaccine Quad .5 mL IM 6+ MO (FLUZONE/FLULAVAL/FL UARIX) Unknown Completed [facility] Influenza Virus Vaccine Quad IM, Preserv and ABX Free 6 MO-64 YRS (FLUCELVAX) Unknown Completed [facility] Influenza Virus Vaccine Quad .5 mL IM 6+ MO (FLUZONE/FLULAVAL/FL UARIX) Unknown Completed [facility] Varicella (varivax)(chicken pox) Unknown Completed [facility] IPV Unknown Completed [facility] IPV Unknown Completed [facility] IPV Unknown Completed [facility] IPV Unknown Completed [facility] Pneumococcal 7 Conjugate, PCV7 (Prevnar7) Unknown Completed [facility] MMR Unknown Completed [facility] MMR Unknown Completed [facility] Meningococcal Polysaccharide (groups A, C, Y and W-135) conjugate vaccine (MCV4P) Unknown Completed [facility] Meningococcal Polysaccharide (groups A, C, Y and W-135) conjugate vaccine (MCV4P) Unknown Completed [facility] HIB 4 Dose Schedule Unknown Completed [facility] HIB 4 Dose Schedule Unknown Completed [facility] HIB 4 Dose Schedule Unknown Completed [facility] HIB 4 Dose Schedule Unknown Completed [facility] Hep B, Adol or Pedi Dosage Unknown Completed [facility] Hep B, Adol or Pedi Dosage Unknown Completed [facility] Hep B, Adol or Pedi Dosage Unknown Completed [facility] Flu Whole Virus Unknown Completed [facility] DTaP, Unspecified Formulation Unknown Completed [facility] DTaP, Unspecified Formulation Unknown Completed [facility] DTaP, Unspecified Formulation Unknown Completed [facility] DTaP, Unspecified Formulation Unknown Completed [facility] DTaP, Unspecified Formulation Unknown Completed [facility] SARS-COV-2 COVID-19 VACCINE - (MODERNA) Unknown Completed [facility] SARS-COV-2 COVID-19 VACCINE - (MODERNA) Unknown Completed [facility] SARS-COV-2 COVID-19 VACCINE - (MODERNA) Unknown Completed [facility] Influenza Virus Vaccine Quad .5 mL IM 6+ MO (FLUZONE/FLULAVAL/FL UARIX) Unknown Completed [facility] Influenza Virus Vaccine Quad IM, Preserv and ABX Free 6 MO-64 YRS (FLUCELVAX) Unknown Completed [facility] Influenza Virus Vaccine Quad .5 mL IM 6+ MO (FLUZONE/FLULAVAL/FL UARIX) Unknown Completed [facility] Varicella (varivax)(chicken pox) Unknown Completed [facility] IPV Unknown Completed [facility] IPV Unknown Completed [facility] IPV Unknown Completed [facility] IPV Unknown Completed [facility] Pneumococcal 7 Conjugate, PCV7 (Prevnar7) Unknown Completed [facility] MMR Unknown Completed [facility] MMR Unknown Completed [facility] Meningococcal Polysaccharide (groups A, C, Y and W-135) conjugate vaccine (MCV4P) Unknown Completed [facility] Meningococcal Polysaccharide (groups A, C, Y and W-135) conjugate vaccine (MCV4P) Unknown Completed [facility] HIB 4 Dose Schedule Unknown Completed [facility] HIB 4 Dose Schedule Unknown Com[facility] [facility] HIB 4 Dose Schedule Unknown Completed [facility] HIB 4 Dose Schedule Unknown Completed [facility] Hep B, Adol or Pedi Dosage Unknown Completed [facility] Hep B, Adol or Pedi Dosage Unknown Completed [facility] Hep B, Adol or Pedi Dosage Unknown Completed [facility] Flu Whole Virus Unknown Completed [facility] DTaP, Unspecified Formulation Unknown Completed [facility] DTaP, Unspecified Formulation Unknown Completed [facility] DTaP, Unspecified Formulation Unknown Completed [facility] DTaP, Unspecified Formulation Unknown Completed [facility] DTaP, Unspecified Formulation Unknown Completed [facility] SARS-COV-2 COVID-19 VACCINE - (MODERNA) Unknown Completed [facility] SARS-COV-2 COVID-19 VACCINE - (MODERNA) Unknown Completed [facility] SARS-COV-2 COVID-19 VACCINE - (MODERNA) Unknown Completed [facility] Influenza Virus Vaccine Quad .5 mL IM 6+ MO (FLUZONE/FLULAVAL/FL UARIX) Unknown Completed [facility] Influenza Virus Vaccine Quad IM, Preserv and ABX Free 6 MO-64 YRS (FLUCELVAX) Unknown Completed [facility] Influenza Virus Vaccine Quad .5 mL IM 6+ MO (FLUZONE/FLULAVAL/FL UARIX) Unknown Completed [facility] Varicella (varivax)(chicken pox) Unknown Completed [facility] IPV Unknown Completed [facility] IPV Unknown Completed [facility] IPV Unknown Completed [facility] IPV Unknown Completed [facility] Pneumococcal 7 Conjugate, PCV7 (Prevnar7) Unknown Completed [facility] MMR Unknown Completed [facility] MMR Unknown Completed [facility] Meningococcal Polysaccharide (groups A, C, Y and W-135) conjugate vaccine (MCV4P) Unknown Completed [facility] Meningococcal Polysaccharide (groups A, C, Y and W-135) conjugate vaccine (MCV4P) Unknown Completed [facility] HIB 4 Dose Schedule Unknown Completed [facility] HIB 4 Dose Schedule Unknown Completed [facility] HIB 4 Dose Schedule Unknown Completed [facility] HIB 4 Dose Schedule Unknown Completed [facility] Hep B, Adol or Pedi Dosage Unknown Completed [facility] Hep B, Adol or Pedi Dosage Unknown Completed [facility] Hep B, Adol or Pedi Dosage Unknown Completed [facility] Flu Whole Virus Unknown Completed [facility] DTaP, Unspecified Formulation Unknown Completed [facility] DTaP, Unspecified Formulation Unknown Completed [facility] DTaP, Unspecified Formulation Unknown Completed [facility] DTaP, Unspecified Formulation Unknown Completed [facility] DTaP, Unspecified Formulation Unknown Completed [facility] SARS-COV-2 COVID-19 VACCINE - (MODERNA) Unknown Completed [facility] SARS-COV-2 COVID-19 VACCINE - (MODERNA) Unknown Completed [facility] SARS-COV-2 COVID-19 VACCINE - (MODERNA) Unknown Completed [facility] Influenza Virus Vaccine Quad .5 mL IM 6+ MO (FLUZONE/FLULAVAL/FL UARIX) Unknown Completed [facility] Influenza Virus Vaccine Quad IM, Preserv and ABX Free 6 MO-64 YRS (FLUCELVAX) Unknown Completed [facility] Influenza Virus Vaccine Quad .5 mL IM 6+ MO (FLUZONE/FLULAVAL/FL UARIX) Unknown Completed [facility] Varicella (varivax)(chicken pox) Unknown Completed [facility] IPV Unknown Completed [facility] IPV Unknown Completed [facility] IPV Unknown Completed [facility] IPV Unknown Completed [facility] Pneumococcal 7 Conjugate, PCV7 (Prevnar7) Unknown Completed [facility] MMR Unknown Completed [facility] MMR Unknown Completed [facility] Meningococcal Polysaccharide (groups A, C, Y and W-135) conjugate vaccine (MCV4P) Unknown Completed [facility] Meningococcal Polysaccharide (groups A, C, Y and W-135) conjugate vaccine (MCV4P) Unknown Completed [facility] HIB 4 Dose Schedule Unknown Completed [facility] HIB 4 Dose Schedule Unknown Completed [facility] HIB 4 Dose Schedule Unknown Completed [facility] HIB 4 Dose Schedule Unknown Completed [facility] Hep B, Adol or Pedi Dosage Unknown Completed [facility] Hep B, Adol or Pedi Dosage Unknown Completed [facility] Hep B, Adol or Pedi Dosage Unknown Completed [facility] Flu Whole Virus Unknown Completed [facility] DTaP, Unspecified Formulation Unknown Completed [facility] DTaP, Unspecified Formulation Unknown Completed [facility] DTaP, Unspecified Formulation Unknown Completed [facility] DTaP, Unspecified Formulation Unknown Completed [facility] DTaP, Unspecified Formulation Unknown Completed [facility] SARS-COV-2 COVID-19 VACCINE - (MODERNA) Unknown Completed [facility] SARS-COV-2 COVID-19 VACCINE - (MODERNA) Unknown Completed [facility] SARS-COV-2 COVID-19 VACCINE - (MODERNA) Unknown Completed [facility] Influenza Virus Vaccine Quad .5 mL IM 6+ MO (FLUZONE/FLULAVAL/FL UARIX) Unknown Completed [facility] Influenza Virus Vaccine Quad IM, Preserv and ABX Free 6 MO-64 YRS (FLUCELVAX) Unknown Completed [facility] Influenza Virus Vaccine Quad .5 mL IM 6+ MO (FLUZONE/FLULAVAL/FL UARIX) Unknown Completed [facility] Varicella (varivax)(chicken pox) Unknown Completed [facility] IPV Unknown Completed [facility] IPV Unknown Completed [facility] IPV Unknown Completed [facility] IPV Unknown Completed [facility] Pneumococcal 7 Conjugate, PCV7 (Prevnar7) Unknown Completed [facility] MMR Unknown Completed [facility] MMR Unknown Completed [facility] Meningococcal Polysaccharide (groups A, C, Y and W-135) conjugate vaccine (MCV4P) Unknown Completed [facility] Meningococcal Polysaccharide (groups A, C, Y and W-135) conjugate vaccine (MCV4P) Unknown Completed [facility] HIB 4 Dose Schedule Unknown Completed [facility] HIB 4 Dose Schedule Unknown Completed [facility] HIB 4 Dose Schedule Unknown Completed [facility] HIB 4 Dose Schedule Unknown Completed [facility] Hep B, Adol or Pedi Dosage Unknown Completed [facility] Hep B, Adol or Pedi Dosage Unknown Completed [facility] Hep B, Adol or Pedi Dosage Unknown Completed [facility] Flu Whole Virus Unknown Completed [facility] DTaP, Unspecified Formulation Unknown Completed [facility] DTaP, Unspecified Formulation Unknown Completed [facility] DTaP, Unspecified Formulation Unknown Completed [facility] DTaP, Unspecified Formulation Unknown Completed [facility] DTaP, Unspecified Formulation Unknown Completed [facility] SARS-COV-2 COVID-19 VACCINE - (MODERNA) Unknown Completed [facility] SARS-COV-2 COVID-19 VACCINE - (MODERNA) Unknown Completed [facility] SARS-COV-2 COVID-19 VACCINE - (MODERNA) Unknown Completed [facility] Influenza Virus Vaccine Quad .5 mL IM 6+ MO (FLUZONE/FLULAVAL/FL UARIX) Unknown Completed [facility] Influenza Virus Vaccine Quad IM, Preserv and ABX Free 6 MO-64 YRS (FLUCELVAX) Unknown Completed [facility] Influenza Virus Vaccine Quad .5 mL IM 6+ MO (FLUZONE/FLULAVAL/FL UARIX) Unknown Completed [facility] Varicella (varivax)(chicken pox) Unknown Completed [facility] IPV Unknown Completed [facility] IPV Unknown Completed [facility] IPV Unknown Completed [facility] IPV Unknown Completed [facility] Pneumococcal 7 Conjugate, PCV7 (Prevnar7) Unknown Completed [facility] MMR Unknown Completed [facility] MMR Unknown Completed [facility] Meningococcal Polysaccharide (groups A, C, Y and W-135) conjugate vaccine (MCV4P) Unknown Completed [facility] Meningococcal Polysaccharide (groups A, C, Y and W-135) conjugate vaccine (MCV4P) Unknown Completed [facility] Vital Signs Vital Name Observation Time Observation Value Comments S ource Systolic blood pressure 2024-03-16 14:34:00 128 mm[Hg] [facility] Diastolic blood pressure 2024-03-16 14:34:00 74 mm[Hg] [facility] Heart rate 2024-03-16 14:34:00 100 /min General acute hospital Body temperature 2024-03-16 14:34:00 36.56 Tete [facility] Respiratory rate 2024-03-16 14:34:00 17 /min [facility] Body height 2024-03-16 14:34:00 168.9 cm [facility] Body weight 2024-03-16 14:34:00 107.049 kg [facility] BMI 2024-03-16 14:34:00 37.52 kg/m2 [facility] Oxygen saturation in Arterial blood by Pulse oximetry 2024-03-16 14:34:00 98 /min [facility] Systolic blood pressure 2024-02-24 19:51:00 142 mm[Hg] [facility] Diastolic blood pressure 2024-02-24 19:51:00 94 mm[Hg] [facility] Heart rate 2024-02-24 19:51:00 107 /min [facility] Body height 2024-02-24 19:51:00 168.9 cm [facility] Body weight 2024-02-24 19:51:00 109.317 kg [facility] BMI 2024-02-24 19:51:00 38.32 kg/m2 [facility] Oxygen saturation in Arterial blood by Pulse oximetry 2024-02-24 19:51:00 96 /min [facility] Systolic blood pressure 2024-02-22 15:45:00 126 mm[Hg] [facility] Diastolic blood pressure 2024-02-22 15:45:00 82 mm[Hg] [facility] Heart rate 2024-02-22 15:44:00 111 /min [facility] Body temperature 2024-02-22 15:44:00 37 Tete [facility] Respiratory rate 2024-02-22 15:44:00 17 /min [facility] Body weight 2024-02-22 15:44:00 108.863 kg [facility] BMI 2024-02-22 15:44:00 38.74 kg/m2 [facility] Oxygen saturation in Arterial blood by Pulse oximetry 2024-02-22 15:44:00 96 /min [facility] Systolic blood pressure 2024-02-09 14:34:00 129 mm[Hg] [facility] Diastolic blood pressure 2024-02-09 14:34:00 84 mm[Hg] [facility] Heart rate 2024-02-09 14:34:00 92 /min [facility] Body temperature 2024-02-09 14:34:00 36.61 Tete [facility] Respiratory rate 2024-02-09 14:34:00 18 /min [facility] Body weight 2024-02-09 14:34:00 109.272 kg [facility] BMI 2024-02-09 14:34:00 38.88 kg/m2 [facility] Oxygen saturation in Arterial blood by Pulse oximetry 2024-02-09 14:34:00 98 /min [facility] Systolic blood pressure 2024-01-26 19:14:00 112 mm[Hg] [facility] Diastolic blood pressure 2024-01-26 19:14:00 79 mm[Hg] [facility] Heart rate 2024-01-26 19:14:00 148 /min [facility] Body temperature 2024-01-26 19:14:00 37.83 Tete [facility] Respiratory rate 2024-01-26 19:14:00 20 /min [facility] Body height 2024-01-26 19:14:00 167.6 cm [facility] Body weight 2024-01-26 19:14:00 109.77 kg [facility] BMI 2024-01-26 19:14:00 39.06 kg/m2 [facility] Oxygen saturation in Arterial blood by Pulse oximetry 2024-01-26 19:14:00 96 /min [facility] Systolic blood pressure 2023-07-14 20:47:00 119 mm[Hg] [facility] Diastolic blood pressure 2023-07-14 20:47:00 82 mm[Hg] [facility] Heart rate 2023-07-14 20:47:00 96 /min [facility] Respiratory rate 2023-07-14 20:47:00 18 /min [facility] Body height 2023-07-14 20:47:00 168.9 cm [facility] Body weight 2023-07-14 20:47:00 108.818 kg [facility] BMI 2023-07-14 20:47:00 38.14 kg/m2 [facility] Systolic blood pressure 2023-05-07 13:50:00 109 mm[Hg] [facility] Diastolic blood pressure 2023-05-07 13:50:00 76 mm[Hg] [facility] Heart rate 2023-05-07 13:50:00 99 /min [facility] Body height 2023-05-07 13:50:00 167.6 cm [facility] Body weight 2023-05-07 13:50:00 110.269 kg [facility] BMI 2023-05-07 13:50:00 39.24 kg/m2 [facility] Systolic blood pressure 2022-12-30 14:03:00 114 mm[Hg] [facility] Diastolic blood pressure 2022-12-30 14:03:00 78 mm[Hg] [place] [facility] Heart rate 2022-12-30 14:03:00 87 /min [facility] Body height 2022-12-30 14:03:00 167.6 cm [facility] Body weight 2022-12-30 14:03:00 110.859 kg [facility] BMI 2022-12-30 14:03:00 39.45 kg/m2 [facility] Systolic blood pressure 2022-08-02 16:42:00 113 mm[Hg] [facility] Diastolic blood pressure 2022-08-02 16:42:00 82 mm[Hg] [facility] Heart rate 2022-08-02 16:42:00 88 /min [facility] Body height 2022-08-02 16:42:00 167.6 cm [facility] Body weight 2022-08-02 16:42:00 108.5 kg [facility] BMI 2022-08-02 16:42:00 38.61 kg/m2 [facility] Oxygen saturation in Arterial blood by Pulse oximetry 2022-08-02 16:42:00 99 /min [place] [facility] BP Systolic 2024-02-10 11:21:00 Mayco Blas BP Diastolic 2024-02-10 11:21:00 Yovany Blas Weight Measured 2024-02-10 11:21:00 Omid Blas Height Measured 2024-02-10 11:21:00 Omid F Wan Body Temperature 2024-02-10 11:21:00 Omid F Wan Heart Rate 2024-02-10 11:21:00 Noa en F Wan Respiratory Rate 2024-02-10 11:21:00 Omid F Wan BP Systolic 2024-02-04 11:47:00 123 mm[Hg] Step hen F Wan BP Diastolic 2024-02-04 11:47:00 76 mm[Hg] Yovany phen F Wan Weight Measured 2024-02-04 11:47:00 245.00 pounds Omid F Wan Height Measured 2024-02-04 11:47:00 66.20 inches Omid F Wan Body Temperature 2024-02-04 11:47:00 97.40 degrees Omid F Wan Heart Rate 2024-02-04 11:47:00 97.00 /min Noa en F Wan Respiratory Rate 2024-02-04 11:47:00 17.00 /min Omid F Wan BP Systolic 2024-02-03 16:27:00 127 mm[Hg] Step hen F Wan BP Diastolic 2024-02-03 16:27:00 87 mm[Hg] Yovany phen F Wan Weight Measured 2024-02-03 16:27:00 243.80 pounds Omid F Wan Height Measured 2024-02-03 16:27:00 66.20 inches Omid F Wan Body Temperature 2024-02-03 16:27:00 98.20 degrees Omid F Wan Heart Rate 2024-02-03 16:27:00 82.00 /min Noa en F Wan Respiratory Rate 2024-02-03 16:27:00 16.00 /min Omid F Wan BP Systolic 2023-11-13 15:52:00 126 mm[Hg] Step hen F Wan BP Diastolic 2023-11-13 15:52:00 84 mm[Hg] Yovany phen F Wan Weight Measured 2023-11-13 15:52:00 250.80 pounds Omid F Wan Height Measured 2023-11-13 15:52:00 66.20 inches Omid F Wan Body Temperature 2023-11-13 15:52:00 97.70 degrees Omid F Wan Heart Rate 2023-11-13 15:52:00 103.00 /min Step hen F Wan Respiratory Rate 2023-11-13 15:52:00 Omid F Wan BP Systolic 2023-10-01 11:35:00 109 mm[Hg] Step hen F Wan BP Diastolic 2023-10-01 11:35:00 69 mm[Hg] Yovany phen F Wan Weight Measured 2023-10-01 11:35:00 253.80 pounds Omid F Wan Height Measured 2023-10-01 11:35:00 66.20 inches Omid F Wan Body Temperature 2023-10-01 11:35:00 Omid F Wan Heart Rate 2023-10-01 11:35:00 98.00 /min Noa en F Wan Respiratory Rate 2023-10-01 11:35:00 Omid F Wan BP Systolic 2022-11-04 11:15:00 111 mm[Hg] Step hen F Wan BP Diastolic 2022-11-04 11:15:00 80 mm[Hg] Yovany phen F Wan Weight Measured 2022-11-04 11:15:00 238.60 pounds Omid F Wan Height Measured 2022-11-04 11:15:00 66.20 inches Omid F Wan Body Temperature 2022-11-04 11:15:00 98.10 degrees Omid F Wan Heart Rate 2022-11-04 11:15:00 73.00 /min Noa en F Wan Respiratory Rate 2022-11-04 11:15:00 17.00 /min Omid F Wan BP Systolic 2022-10-28 14:44:00 114 mm[Hg] Step hen F Wan BP Diastolic 2022-10-28 14:44:00 79 mm[Hg] Yovany phen F Wan Weight Measured 2022-10-28 14:44:00 244.00 pounds Omid F Wan Height Measured 2022-10-28 14:44:00 66.20 inches Omid F Wan Body Temperature 2022-10-28 14:44:00 98.20 degrees Omid F Wan Heart Rate 2022-10-28 14:44:00 84.00 /min Noa en F Wan Respiratory Rate 2022-10-28 14:44:00 17.00 /min Omid F Wan BP Systolic 2021-09-24 14:21:00 110 mm[Hg] Step hen F Wan BP Diastolic 2021-09-24 14:21:00 74 mm[Hg] Yovany phen F Wan Weight Measured 2021-09-24 14:21:00 234.80 pounds Omid F Wan Height Measured 2021-09-24 14:21:00 66.20 inches Omid F Wan Body Temperature 2021-09-24 14:21:00 98.30 degrees Omid F Wan Heart Rate 2021-09-24 14:21:00 88.00 /min Noa en F Wan Respiratory Rate 2021-09-24 14:21:00 17.00 /min Omid F Wan BP Systolic 2015-12-19 11:22:00 114 mm[Hg] Step hen F Wan BP Diastolic 2015-12-19 11:22:00 64 mm[Hg] Yovany phen F Wan Weight Measured 2015-12-19 11:22:00 210.20 pounds Omid F Wan Height Measured 2015-12-19 11:22:00 66.20 inches Omid F Wan Body Temperature 2015-12-19 11:22:00 98.60 degrees Omid F Wan Heart Rate 2015-12-19 11:22:00 72.00 /min Noa en F Wan Respiratory Rate 2015-12-19 11:22:00 16.00 /min Omid F Wan BP Systolic 2014-10-04 16:45:00 125 mm[Hg] Step hen F Wan BP Diastolic 2014-10-04 16:45:00 88 mm[Hg] Yovany phen F Wan Weight Measured 2014-10-04 16:45:00 189.60 pounds Omid F Wan Height Measured 2014-10-04 16:45:00 66.20 inches Omid F Wan Body Temperature 2014-10-04 16:45:00 98.60 degrees Omid F Wan Heart Rate 2014-10-04 16:45:00 110.00 /min Step hen F Wan Respiratory Rate 2014-10-04 16:45:00 20.00 /min Omid F Wan BP Systolic 2014-10-04 16:36:00 125 mm[Hg] Step hen F Wan BP Diastolic 2014-10-04 16:36:00 88 mm[Hg] Yovany phen F Wan Weight Measured 2014-10-04 16:36:00 189.60 pounds Omid F Wan Height Measured 2014-10-04 16:36:00 66.20 inches Omid Blas Body Temperature 2014-10-04 16:36:00 98.60 degrees Omid Blas Heart Rate 2014-10-04 16:36:00 110.00 /min Mayco Blas Respiratory Rate 2014-10-04 16:36:00 20.00 /min Omid Blas Procedures Procedure Date / Time Performed Performing Clinician Source POCT MOLECULAR STREP 2024-03-16 14:33:00 Unknown, Attemy [facility] POCT MOLECULAR STREP 2024-02-22 15:43:00 Unknown, Atte [facility] POCT MOLECULAR STREP 2024-02-09 14:33:00 Unknown, Attemy [facility] POCT SARS-COV-2 ANTIGEN (BINAX NOW) 2024-01-26 19:43:00 Ekaterina De La Cruz [facility] POCT MOLECULAR STREP 2024-01-26 19:39:00 Unknown, Attemy [facility] POCT MOLECULAR FLU 2024-01-26 19:14:00 Unknown, Attend [facility] POCT HEMOGLOBIN A1C TEST 2023-05-07 14:02:00 Neena Menezes [facility] MEDICATION CORRESPONDENCE 2023-01-02 05:01:00 Do ctor Unassigned, Gilbert [facility] POCT HEMOGLOBIN A1C TEST 2022-12-30 14:05:00 Neena Menezes [facility] MEDICATION CORRESPONDENCE 2022-12-03 05:01:00 Do ctor Unassigned, Gilbert [facility] MEDICATION CORRESPONDENCE 2022-09-25 06:01:00 Do ctor Unassigned, Gilbert [facility] POCT HEMOGLOBIN A1C TEST 2022-08-02 16:46:00 Sonam Curtis [facility] FLU VACC (), 6 MO-64 YRS, .5ML, IM, QUAD (FLUCELVAX) 2022-08-02 16:44:13 Coleen Curtis [facility] MEDICATION CORRESPONDENCE 2022-07-12 06:01:00 Do ctor Unassigned, Gilbert [facility] MEDICATION CORRESPONDENCE 2022-03-28 05:01:00 Do ctor Unassigned, Gilbert [facility] MEDICATION CORRESPONDENCE 2021-02-28 05:01:00 Do ctor Unassigned, Gilbert [facility] Encounters Start Date/Time End Date/Time Encounter Type Admission Type Attending [facility] Facility Care Department Encounter ID Source 2024-03-16 09:20:00 2024-03-16 09:48:57 Outpatient R JUNGTAWNYA [facility] [id number] [facility] 2024-03-16 09:20:00 2024-03-16 09:48:57 Urgent Care Tawnya Jung Unknown, Attending [facility] 1..840.114 [id number] [facility] 2024-02-24 14:30:00 2024-02-24 15:39:08 Outpatient R JUANJO FERNÁNDEZ [facility] [id number] [facility] 2024-02-24 14:30:00 2024-02-24 15:39:08 Office Visit Pradeep [place] [facility] 1.840.114 [id number] [id number] [facility] 2024-02-22 10:40:00 2024-02-22 11:00:00 Urgent Care Reji Sandoval Unknown, Attending [facility] 1..840.114 350.1.13.10 [id number] [facility] 2024-02-22 10:40:00 2024-02-22 10:40:00 Outpatient REJI CARROLL [facility] [id number] [facility] 2024-02-03 00:00:00 2024-02-10 11:35:15 Telephone Jori Andujar [facility] 1.840.114 350.1.13.10 [id number] [id number] [facility] 2024-02-10 11:22:32 2024-02-10 11:22:32 Outpatient [facility] 11 Omid Blas 2024-02-10 00:00:00 2024-02-10 00:00:00 Outpatient Visit [facility] [id number] Omid Blas 2024-02-09 09:00:00 2024-02-09 09:20:00 Urgent Care Ekaterina De La Cruz Unknown, Attending [facility] 1..840.114 350.1.13.10 [id number] [id number] [facility] 2024-02-09 09:00:00 2024-02-09 09:00:00 Outpatient R EKATERINA DE LA CRUZ [facility] [id number] [facility] 2024-02-04 11:34:29 2024-02-04 11:34:29 Outpatient [facility] [address] Omid Blas 2024-02-03 16:27:13 2024-02-03 16:27:13 Outpatient [facility] 603 Omid Blas 2024-02-03 00:00:00 2024-02-03 00:00:00 [facility] [facility] [id number] Omid Holbrook Wan 2024-01-26 14:00:00 2024-01-26 14:20:00 Urgent Care Ekaterina De La Cruz Nkechinyere Unknown, Attending [facility] 1.2.840.114 350.1.13.10 4.2.7.2.686 [id number] [facility] 2024-01-26 14:00:00 2024-01-26 14:00:00 Outpatient R EKATERINA DE LA CRUZ [facility] [id number] [facility] 2023-12-16 14:00:00 2023-12-16 14:00:00 Outpatient R MAEVE JORI [facility] [id number] [facility] 2023-11-13 15:45:55 2023-11-13 15:45:55 Outpatient [facility] 313 Omid Blas 2023-11-12 13:55:06 2023-11-12 13:55:06 Outpatient [facility] 312 Omid Holbrook Wan 2023-11-04 00:00:00 2023-11-04 00:00:00 Telephone Jori Andujar [facility] 1.2.840.114 350.1.13.10 4.2.7.2.686 [id number] 220 [id number] [facility] 2023-10-20 00:00:00 2023-10-20 00:00:00 Patient Secure Msg Doctor Unassigned, Gilbert [facility] 1.2.840.114 350.1.13.10 4.2.7.2.686 [id number] 220 [id number] [facility] 2023-10-13 00:00:00 2023-10-13 00:00:00 Telephone Jori Andujar [facility] 1.2.840.114 350.1.13.10 4.2.7.2.686 [id number] 220 [id number] [facility] 2023-10-02 16:18:48 2023-10-02 16:18:48 Outpatient [facility] 0201 Omid Blas 2023-09-10 00:00:00 2023-09-10 00:00:00 Patient Secure Msg [facility] 1..840.114 350.1.13.10 4.2.7.2.686 [id number] 220 [id number] [facility] 2023-07-14 15:00:00 2023-07-14 15:41:05 Outpatient R JORI ANDUJAR [facility] [id number] [facility] 2023-07-14 15:00:00 2023-07-14 15:41:05 Office Visit Jori Andujar [facility] 1.2.840.114 350.1.13.10 4.2.7.2.686 [id number] 220 [id number] [facility] 2023-05-28 00:00:00 2023-05-28 00:00:00 Refill RickieColeen [facility] 1..840.114 350.1.13.10 4.2.7.2.686 [id number] 220 [id number] [facility] 2023-05-25 00:00:00 2023-05-25 00:00:00 Patient Secure Neena Guerra [facility] 1.2.840.114 350.1.13.10 4.2.7.2.686 [id number] 220 [id number] [facility] 2023-05-22 15:48:27 2023-05-22 23:59:00 Outpatient R NEENA MENEZES YU [facility] [id number] [facility] 2023-05-22 15:48:27 2023-05-22 23:59:00 Hospital Encounter Neena Menezes [facility] 1.2.840.114 350.1.13.10 4.2.7.2.686 [id number] [facility] 2023-05-07 09:00:00 2023-05-07 09:30:26 Outpatient R NEENA MENEZES YU [facility] [id number] [facility] 2023-05-07 09:00:00 2023-05-07 09:30:26 Office Visit Clif Neena [facility] MED[facility] 1.840.114 350.1.13.10 4.2.7.2.686 [id number] 220 [id number] [facility] 2023-02-11 00:00:00 2023-02-11 00:00:00 Telephone Arnie Donahue [facility] 1.84.114 350.1.13.10 4.2.7.2.686 [id number] 220 [id number] [facility] 2023-01-12 00:00:00 2023-01-12 00:00:00 Patient Secure Msg ClifNeena [facility] 1.840.114 350.1.13.10 4.2.7.2.686 [id number] 220 [id number] [facility] 2023-01-02 00:00:00 2023-01-02 00:00:00 Orders Only Doctor Unassigned, Gilbert [facility] 1.84.114 350.1.13.10 4.2.7.2.686 [id number] [id number] [facility] 2023-01-01 09:30:00 2023-01-01 09:59:47 Outpatient R NEENA MENEZES YU [facility] [id number] [facility] 2023-01-01 09:30:00 2023-01-01 09:45:00 Patternmaker Helper Visit Rakesh Oquendo Unknown, Attending [facility] 1.840.114 350.1.13.10 4.2.7.2.686 [id number] 353 [id number] [facility] 2022-12-31 12:15:00 2022-12-31 12:15:00 Patternmaker Helper Visit Lab, Rakesh Menezes [facility] 1.2.840.114 350.1.13.10 4.2.7.2.686 [id number] 353 [id number] [facility] 2022-12-31 12:15:00 2022-12-31 11:55:21 Outpatient R NEENA MENEZES [facility] [id number] [facility] 2022-12-30 09:45:00 2022-12-30 10:10:32 Patternmaker Helper Visit Lab, Rakesh Menezes [facility] 1.2.840.114 350.1.13.10 4.2.7.2.686 [id number] [facility] 2022-12-30 09:00:00 2022-12-30 09:43:20 Outpatient R NEENA MENEZES [facility] [id number] [facility] 2022-12-30 09:00:00 2022-12-30 09:43:20 Office Visit Neena Menezes [facility] 1.2.840.114 350.1.13.10 4.2.7.2.686 [id number] 220 [id number] [facility] 2022-12-03 00:00:00 2022-12-03 00:00:00 Orders Only Doctor Unassigned, Gilbert [facility] 1.2.840.114 350.1.13.10 4.2.7.2.686 [id number] [id number] [facility] 2022-12-02 10:30:00 2022-12-02 10:30:00 Outpatient R CLIFNEENAN [facility] [id number] [facility] 2022-11-12 00:00:00 2022-11-12 00:00:00 Telephone Arnie Donahue [facility] 1.114 350.1.13.10 4.2.7.2.686 [id number] 220 [id number] [facility] 2022-11-04 11:08:50 2022-11-04 11:08:50 Outpatient [facility] [id number] Omid Blas 2022-10-28 14:33:50 2022-10-28 14:33:50 Outpatient [facility] 0227 Omid Blas 2022-10-08 00:00:00 2022-10-08 00:00:00 Telephone Neena Menezes [facility] 1.114 350.1.13.10 4.2.7.2.686 [id number] 220 [id number] [facility] 2022-09-27 00:00:00 2022-09-27 00:00:[address] [facility] 1.114 350.1.13.10 4.2.7.2.686 [id number] 220 [id number] [facility] 2022-09-27 00:00:00 2022-09-27 00:00:00 Refmarcelo Rickie [facility] 1.114 350.1.13.10 4.2.7.2.686 [id number] 220 [id number] [facility] 2022-09-26 00:00:00 2022-09-26 00:00:00 Telephone Arnie Donahue [facility] .114 350.1.13.10 4.2.7.2.686 [id number] 220 [id number] [facility] 2022-09-25 00:00:00 2022-09-25 00:00:00 Orders Only Doctor Unassigned, Gilbert [facility] 1..114 350.1.13.10 4.2.7.2.686 [id number] [id number] [facility] 2022-08-27 00:00:00 2022-08-27 00:00:00 Telephone Arnie Donahue [facility] 1.2840.114 350.1.13.10 4.2.7.2.686 [id number] 220 [id number] [facility] 2022-08-02 10:30:00 2022-08-02 12:46:26 [facility] 1.840.114 350.1.13.10 4.2.7.2.686 [id number] 220 [id number] [facility] 2022-08-02 10:30:00 2022-08-02 12:46:26 Outpatient R RICKIE [facility] [id number] [facility] 2022-07-12 00:00:00 2022-07-12 00:00:00 Orders Only Doctor Unassigned, Gilbert [facility] 1.840.114 350.1.13.10 4.2.7.2.686 [id number] [facility] 2022-07-05 00:00:00 2022-07-05 00:00:00 Telephone Rickie [facility] 1.840.114 350.1.13.10 4.2.7.2.686 [id number] 220 [id number] [facility] 2022-07-03 00:00:00 2022-07-03 00:00:00 Telephone Rickie [facility] 1.2840.114 350.1.13.10 4.2.7.2.686 [id number] 220 [id number] [facility] 2022-06-01 00:00:00 2022-06-01 00:00:00 Nurse Triage Kiley Costa [facility] 1.2.840.114 350.1.13.10 4.2.7.2.686 [id number] [facility] 2022-05-31 00:00:00 2022-05-31 00:00:00 Telephone [facility] 1.2.840.114 350.1.13.10 4.2.7.2.686 [id number] 220 [id number] [facility] 2022-05-20 00:00:00 2022-05-20 00:00:00 Telephone [facility] 1.2.840.114 350.1.13.10 4.2.7.2.686 [id number] 220 [id number] [facility] 2022-05-01 00:00:00 2022-05-01 00:00:00 Telephone [facility] 1.2840.114 350.1.13.10 4.2.7.2.686 [id number] 220 [id number] [facility] 2022-04-19 00:00:00 2022-04-19 00:00:00 Telephone [facility] 1.2.840.114 350.1.13.10 4.2.7.2.686 [id number] 220 [id number] [facility] 2022-03-28 00:00:00 2022-03-28 00:00:00 Orders Only Doctor Unassigned, Gilbert [facility] 1.2.840.114 350.1.13.10 4.2.7.2.686 [id number] [id number] [facility] 2022-03-28 00:00:00 2022-03-28 00:00:00 Telephone [facility] 1.0.114 350.1.13.10 4.2.7.2.686 [id number] 220 [id number] [facility] 2022-03-26 00:00:00 2022-03-26 00:00:00 [facility] 1..114 350.1.13.10 4.2.7.2.686 [id number] 220 [id number] [facility] 2022-01-18 10:00:00 2022-01-18 10:52:58 Office Visit Rickie [facility] R[facility]ANDO?[facility] 1.114 350.1.13.10 4.2.7.2.686 [id number] 220 [id number] [facility] 2022-01-18 10:00:00 2022-01-18 10:52:58 [id number] 2022-01-18 10:00:00 2022-01-18 10:00:00 Outpatient R COLEEN CURTIS [facility] [id number] [facility] 2022-01-18 10:00:00 2022-01-18 10:00:00 Outpatient R COLEEN CURTIS [facility] [id number] [facility] 2022-01-17 00:00:00 2022-01-17 00:00:00 Letter (Out) Rickie [facility]O?[facility] 1.84114 350.1.13.10 4.2.7.2.686 [id number] 220 [id number] [facility] 2021-12-03 00:00:00 2021-12-03 00:00:00 Telephone Rickie Coleen [facility] 1.2.114 350.1.13.10 4.2.7.2.686 [id number] 220 [id number] [facility] 2021-11-27 00:00:00 2021-11-27 00:00:00 [facility] 1..114 350.1.13.10 4.2.7.2.686 [id number] 220 [id number] [facility] 2021-10-16 00:00:00 2021-10-16 00:00:00 [facility] 1..114 350.1.13.10 4.2.7.2.686 [id number] 220 [id number] [facility] 2021-10-05 00:00:00 2021-10-05 00:00:00 [facility] 1..114 350.1.13.10 4.2.7.2.686 [id number] 220 [id number] [facility] 2021-08-13 08:45:00 2021-08-13 09:34:31 Outpatient R COLEEN CURTIS [facility] [id number] [facility] 2021-08-13 08:45:00 2021-08-13 09:34:31 Office Visit Coleen Curtis [facility] 1..114 350.1.13.10 4.2.7.2.686 [id number] 220 [id number] [facility] 2021-08-13 08:45:00 2021-08-13 08:45:00 Outpatient R COLEEN CURTIS [facility] [id number] [facility] 2021-08-13 00:00:00 2021-08-13 00:00:00 Orders Only Doctor Unassigned, Gilbert [facility] 1..114 350.1.13.10 4.2.7.2.686 [id number] [id number] [facility] 2021-06-28 00:00:00 2021-06-28 00:00:00 Orders Only Doctor Unassigned, Gilbert [facility] 1.2.840.114 350.1.13.10 4.2.7.2.686 [id number] [id number] [facility] 2021-06-27 00:00:00 2021-06-27 00:00:00 Telephone [facility] 1.2.840.114 350.1.13.10 4.2.7.2.686 [id number] 220 [id number] [facility] 2021-06-25 00:00:00 2021-06-25 00:00:00 Telephone [facility] 1.2.840.114 350.1.13.10 4.2.7.2.686 [id number] 220 [id number] [facility] 2021-05-23 00:00:00 2021-05-23 00:00:00 Orders Only Doctor Unassigned, Gilbert [facility] 1.2.840.114 350.1.13.10 4.2.7.2.686 [id number] [id number] [facility] 2021-05-14 08:47:31 2021-05-14 09:47:00 Office Visit [facility] 1.2.840.114 350.1.13.10 4.2.7.2.686 [id number] 220 [id number] [facility] 2021-05-14 08:45:00 2021-05-14 08:45:00 Outpatient R [facility] [id number] [facility] 2021-05-14 00:00:00 2021-05-14 00:00:00 Orders Only Doctor Unassigned, Gilbert [facility] 1.2.840.114 350.1.13.10 4.2.7.2.686 [id number] [id number] [facility] 2021-03-28 00:00:00 2021-03-28 00:00:00 Telephone [facility] Coleen [facility] 1.2.840.114 350.1.13.10 4.2.7.2.686 [id number] 220 [id number] [facility] 2021-02-28 00:00:00 2021-02-28 00:00:00 Orders Only Doctor Unassigned, Gilbert [facility] 1.2.840.114 350.1.13.10 4.2.7.2.686 [id number] [facility] 2021-02-19 00:00:00 2021-02-19 00:00:00 Telephone [facility] 1.2.840.114 350.1.13.10 4.2.7.2.686 [id number] 220 [id number] [facility] 2021-02-06 00:00:00 2021-02-06 00:00:[address] [facility] 1.2.840.114 350.1.13.10 4.2.7.2.686 [id number] 220 [id number] [facility] 2021-01-31 09:53:03 2021-01-31 10:45:10 Office Visit Rickie Coleen [facility] 1.2.840.114 350.1.13.10 4.2.7.2.686 [id number] 220 [id number] [facility] 2021-01-31 10:15:00 2021-01-31 10:15:00 Outpatient R COLEEN CURTIS [facility] [id number] [facility] 2020-11-21 00:00:00 2020-11-21 00:00:00 Patient Outreach Tera Chavez [facility] 1..840.114 350.1.13.10 4.2.7.2.686 [id number] [facility] 2020-09-12 10:30:00 2020-09-12 10:30:00 Outpatient R RON WAN [facility] [id number] [facility] 2020-09-05 15:40:00 2020-09-05 15:40:00 Outpatient R KARLENE RAVI [facility] [id number] [facility] 2020-08-29 00:00:00 2020-08-29 00:00:00 Patient Secure Msg Doctor Unassigned, Gilbert [facility] OFF[facility] 1..840.114 350.1.13.10 4.2.7.2.686 [id number] [facility] 2020-08-15 08:23:31 2020-08-15 09:25:33 [facility] 1..840.114 350.1.13.10 4.2.7.2.686 [id number] [facility] 2020-08-15 08:30:00 2020-08-15 08:30:00 Outpatient R RON WAN [facility] [id number] [facility] 2020-08-07 14:53:40 2020-08-07 15:55:26 Office Visit Amy Powers [facility] 1..840.114 350.1.13.10 4.2.7.2.686 [id number] [facility] 2020-08-07 15:00:00 2020-08-07 15:00:00 Outpatient R AMY POWERS [facility] [id number] [facility] 2020-07-05 00:00:00 2020-07-05 00:00:00 Telephone Karlene Ravi [facility] 1..114 350.1.13.10 4.2.7.2.686 [id number] 220 [id number] [facility] 2020-07-05 00:00:00 2020-07-05 00:00:00 Orders Only Doctor Unassigned, Gilbert [facility] 1..114 350.1.13.10 4.2.7.2.686 [id number] [facility] 2020-06-23 08:20:00 2020-06-23 08:20:00 Outpatient R AMY POWERS [facility] [id number] [facility] 2020-06-21 08:00:00 2020-06-21 08:00:00 Outpatient MARIANNA BROWN [facility] [id number] [facility] 2020-06-16 14:56:48 2020-06-16 15:30:14 Office Visit Marianna Dumont [facility] 1.114 350.1.13.10 4.2.7.2.686 [id number] [facility] 2020-06-16 15:00:00 2020-06-16 15:00:00 Outpatient MARIANNA BROWN [facility] [id number] [facility] 2020-06-07 08:00:00 2020-06-07 08:00:00 Outpatient R VICK KARLENE [facility] [id number] [facility] 2020-05-30 15:38:44 2020-05-30 16:29:10 Office Visit Karlene Ravi [facility] 1.114 350.1.13.10 4.2.7.2.686 [id number] 220 [id number] [facility] 2020-05-30 15:40:00 2020-05-30 15:40:00 Outpatient R [facility] [id number] [facility] 2020-05-16 00:00:00 2020-05-16 00:00:00 Telephone Vick [facility]PEC [facility] 1.0.114 350.1.13.10 4.2.7.2.686 [id number] 220 [id number] [facility] 2020-05-13 00:00:00 2020-05-13 00:00:00 Refill Vick [facility] 1..114 350.1.13.10 4.2.7.2.686 [id number] 220 [id number] [facility] 2020-05-09 00:00:00 2020-05-09 00:00:00 [facility] 1..114 350.1.13.10 4.2.7.2.686 [id number] 220 [id number] [facility] 2020-03-20 08:45:00 2020-03-20 08:45:00 Outpatient R AMY POWERS [facility] [id number] [facility] 2020-03-18 00:00:00 2020-03-18 00:00:00 Case Management Amy Powers [facility] 1.840.114 350.1.13.10 4.2.7.2.686 [id number] [facility] 2020-03-17 09:24:58 2020-03-17 09:39:58 Patternmaker Helper Visit Pob, Adc Lab Main Marianna Dumont [facility] 1.84.114 350.1.13.10 4.2.7.2.686 [id number] [facility] 2020-03-17 08:26:39 2020-03-17 09:36:57 Urgent Care Provider, [facility] Sascha [facility] Office Building One 1.114 350.1.13.10 4.2.7.2.686 [id number] [facility] 2020-03-17 08:40:00 2020-03-17 08:40:00 [id number] 2020-03-17 00:00:00 2020-03-17 00:00:00 Orders Only Doctor Unassigned, Gilbert [facility] 1.114 350.1.13.10 4.2.7.2.686 [id number] [facility] 2019 15:15:00 2019 15:15:00 Outpatient R GIOAMY ANDRES [facility] [id number] [facility] 2019 07:47:06 2019 08:02:06 Telemedici ne Visit Amy Powers [facility] 1.114 350.1.13.10 4.2.7.2.686 [id number] [facility] 2019-10-19 15:00:00 2019-10-19 15:00:00 Outpatient R KARLENE RAVI [facility] [id number] [facility] 2019-09-14 00:00:00 2019-09-14 00:00:00 Orders Only Doctor Unassigned, Gilbert [facility] 1. 350.1.13.10 4.2.7.2.686 [id number] [id number] [facility] 2019-05-13 09:13:21 2019-05-14 07:55:00 Office Visit Sascha [facility] 1.114 350.1.13.10 4.2.7.2.686 [id number] [facility] 2019-05-13 00:00:00 2019-05-13 00:00:00 Orders Only Doctor Unassigned, Gilbert [facility] 1.2.840.114 350.1.13.10 4.2.7.2.686 [id number] [facility] 2019-04-29 00:00:00 2019-04-29 00:00:00 Letter (Out) Jenny Moreno [facility] 1.2.840.114 350.1.13.10 4.2.7.2.686 [id number] [facility] 2019-04-29 00:00:00 2019-04-29 00:00:00 [facility] 1.2.840.114 350.1.13.10 4.2.7.2.686 [id number] [facility] 2019-04-26 00:00:00 2019-04-26 00:00:00 Telephone Jenny Moreno [facility] 1.2.840.114 350.1.13.10 4.2.7.2.686 [id number] [facility] Results Test Description Test Time Test Comments Results Result Co mments Source [facility] MOLECULAR [id number] 15:47:59* Test Item Value Reference Range Interpretation Comme nts POCT Molecular Strep (test c ode = 29609-3) Positive Negative A Lab Interpretation (test cod e = 25013-0) Abnormal [facility] MOLECULAR [id number] 14:38:38* Test Item Value Reference Range Interpretation Comme nts POCT Molecular Strep (test c ode = 02945-5) Positive Negative A Lab Interpretation (test cod e = 51433-4) [facility]normal [facility] [id number] 00:00:00* Test Item Value Reference Range Interpretation Comme nts CHLAMYDIA, NAAT, URINE (test code = 67195) NEGATIVE Omid BlasGONORRHEA, NAAT, [id number] 00:00:00* Test Item Value Reference Range Interpretation Comme nts GONORRHEA, NAAT, URINE (test code = 58347) NEGATIVE Omid BlasRHEUMATOID FACTOR, QUANT [ADDED][id number] 00:00:00* Test Item Value Reference Range Interpretation Comme nts RHEUMATOID FACTOR, QUANT (te st code = 3502) <10 IU/ML Omid BlasCBC W/AUTO [id number] 00:00:00* Test Item Value Reference Range Interpretation Comme nts WBC (test code = 1001) 8.3 K/UL RBC (test code = 1002) 4.73 M/UL HEMOGLOBIN (test code = 1003) 14.4 G/DL HEMATOCRIT (test code = 1004) 42.1 % MCV (test code = 1005) 89.0 fL MCH (test code = 1006) 30.4 PG MCHC (test code = 1007) 34.2 G/DL RDW (test code = 1038) 11.8 % NEUTROPHILS (test code = 1008) 66.6 % LYMPHOCYTES (test code = 1010) 25.9 % MONOCYTES (test code = 1011) 4.7 % EOSINOPHILS (test code = 1012) 1.4 % BASOPHILS (test code = 1013) 0.6 % IMMATURE GRANULOCYTES (test code = 1036) 0.8 % NUCLEATED RBCS (test code = 1065) 0.0 /100WBC'S PLATELET COUNT (test code = 1015) 362 K/UL ABSOLUTE NEUTROPHILS (test c ode = 1066) 5.55 K/UL ABSOLUTE LYMPHOCYTES (test c ode = 1067) 2.16 K/UL ABSOLUTE MONOCYTES (test cod e = 1068) 0.39 K/UL ABSOLUTE EOSINOPHILS (test c ode = 1040) 0.12 K/UL ABSOLUTE BASOPHILS (test cod e = 1069) 0.05 K/UL ABS IMMATURE GRANULOCYTES (t est code = 1020) 0.07 K/UL ABS NUCLEATED RBCS (test cod e = 42530) 0.00 K/UL Omid BlasLIPID [id number] 00:00:00* Test Item Value Reference Range Interpretation Comme nts CHOLESTEROL (test code = 2210) 239 MG/DL TRIGLYCERIDES (test code = 2232) 312 MG/DL HDL CHOLESTEROL (test code = 2220) 38 MG/DL CALC LDL CHOL (test code = 2237) 153 MG/DL RISK RATIO LDL/HDL (test cod e = 2238) 4.03 RATIO Omid BlasHEMOGLOBIN [id number] 00:00:00* Test Item Value Reference Range Interpretation Comme ayde HEMOGLOBIN A1c (test code = 30418) 9.4 % Omid [id number] 00:00:00* Test Item Value Reference Range Interpretation Comme ayde TSH, THIRD GENERATION (test code = 2821) 0.503 UIU/ML Omid BlasCOMPREHENSIVE METABOLIC [id number] 00:00:00* Test Item Value Reference Range Interpretation Comme nts GLUCOSE (test code = 2217) 204 MG/DL BUN (test code = 2208) 9 MG/DL CREATININE (test code = 2214) 0.68 MG/DL eGFR (2020 CKD-EPI) (test code = 37799) 125 ML/MIN/1.73 CALC BUN/CREAT (test code = 2235) 13 RATIO SODIUM (test code = 2231) 137 MEQ/L POTASSIUM (test code = 2228) 4.6 MEQ/L CHLORIDE (test code = 2215) 101 MEQ/L CARBON DIOXIDE (test code = 2206) 22 MEQ/L CALCIUM (test code = 2209) 9.4 MG/DL PROTEIN, TOTAL (test code = 2229) 7.4 G/DL ALBUMIN (test code = 2201) 4.2 G/DL CALC GLOBULIN (test code = 2240) 3.2 G/DL CALC A/G RATIO (test code = 2234) 1.3 RATIO BILIRUBIN, TOTAL (test code = 2207) <0.2 MG/DL ALKALINE PHOSPHATASE (test code = 2204) 87 U/L AST (test code = 2218) 21 U/L ALT (test code = 2219) 24 U/L Omid BlasALBUMIN/CREATININE RATIO, RANDOM [id number] 00:00:00* Test Item Value Reference Range Interpretation Comme ayde CREATININE, URINE, CONC. (te st code = 207) 107.6 MG/DL ALBUMIN, URINE, RANDOM (test code = 53711) 1.3 MG/DL CALC ALBUMIN/CREAT, RND (dyllan t code = 08059) 12 MG/G Omid BlasHIV 1/2 4TH GEN, RFLX [id number] 00:00:00* Test Item Value Reference Range Interpretation Comme nts HIV 1/2 4TH GEN, RFLX CONF ( test code = 3514) NON-REACTIVE Omid BlasACUTE HEPATITIS [id number] 00:00:00* Test Item Value Reference Range Interpretation Comme nts HEPATITIS A IgM (test code = 14453) NON-REACTIVE HEPATITIS B CORE IgM (test c ode = 4644) NON-REACTIVE HEPATITIS B SURF AG (test co de = 2739) NON-REACTIVE HEPATITIS C ANTIBODY (test c ode = 4675) NON-REACTIVE INTERPRETATION HEPATITIS A: (test code = 2552) (NOTE) INTERPRETATION HEPATITIS B: (test code = 52438) (NOTE) INTERPRETATION HEPATITIS C: (test code = 18366) (NOTE) Omid BlasCHLAMYDIA, NAAT, [id number] 00:00:00* Test Item Value Reference Range Interpretation Comme nts CHLAMYDIA, NAAT, URINE (test code = 95945) NEGATIVE Omid BlasGONORRHEA, NAAT, [id number] 00:00:00* Test Item Value Reference Range Interpretation Comme nts GONORRHEA, NAAT, URINE (test code = 91389) NEGATIVE Omid BlasRHEUMATOID FACTOR, QUANT [ADDED][id number] 00:00:00* Test Item Value Reference Range Interpretation Comme nts RHEUMATOID FACTOR, QUANT (te st code = 3502) <10 IU/ML Omid BlasCBC W/AUTO [id number] 00:00:00* Test Item Value Reference Range Interpretation Comme nts WBC (test code = 1001) 8.3 K/UL RBC (test code = 1002) 4.73 M/UL HEMOGLOBIN (test code = 1003) 14.4 G/DL HEMATOCRIT (test code = 1004) 42.1 % MCV (test code = 1005) 89.0 fL MCH (test code = 1006) 30.4 PG MCHC (test code = 1007) 34.2 G/DL RDW (test code = 1038) 11.8 % NEUTROPHILS (test code = 1008) 66.6 % LYMPHOCYTES (test code = 1010) 25.9 % MONOCYTES (test code = 1011) 4.7 % EOSINOPHILS (test code = 1012) 1.4 % BASOPHILS (test code = 1013) 0.6 % IMMATURE GRANULOCYTES (test code = 1036) 0.8 % NUCLEATED RBCS (test code = 1065) 0.0 /100WBC'S PLATELET COUNT (test code = 1015) 362 K/UL ABSOLUTE NEUTROPHILS (test c ode = 1066) 5.55 K/UL ABSOLUTE LYMPHOCYTES (test c ode = 1067) 2.16 K/UL ABSOLUTE MONOCYTES (test cod e = 1068) 0.39 K/UL ABSOLUTE EOSINOPHILS (test c ode = 1040) 0.12 K/UL ABSOLUTE BASOPHILS (test cod e = 1069) 0.05 K/UL ABS IMMATURE GRANULOCYTES (t est code = 1020) 0.07 K/UL ABS NUCLEATED RBCS (test cod e = 39128) 0.00 K/UL Omid BlasLIPID [id number] 00:00:00* Test Item Value Reference Range Interpretation Comme nts CHOLESTEROL (test code = 2210) 239 MG/DL TRIGLYCERIDES (test code = 2232) 312 MG/DL HDL CHOLESTEROL (test code = 2220) 38 MG/DL CALC LDL CHOL (test code = 2237) 153 MG/DL RISK RATIO LDL/HDL (test cod e = 2238) 4.03 RATIO Omid BlasHEMOGLOBIN [id number] 00:00:00* Test Item Value Reference Range Interpretation Comme nts HEMOGLOBIN A1c (test code = 51337) 9.4 % Omid [id number] 00:00:00* Test Item Value Reference Range Interpretation Comme nts TSH, THIRD GENERATION (test code = 2821) 0.503 UIU/ML Omid BlasCOMPREHENSIVE METABOLIC [id number] 00:00:00* Test Item Value Reference Range Interpretation Comme nts GLUCOSE (test code = 2217) 204 MG/DL BUN (test code = 2208) 9 MG/DL CREATININE (test code = 2214) 0.68 MG/DL eGFR (2020 CKD-EPI) (test code = 27827) 125 ML/MIN/1.73 CALC BUN/CREAT (test code = 2235) 13 RATIO SODIUM (test code = 2231) 137 MEQ/L POTASSIUM (test code = 2228) 4.6 MEQ/L CHLORIDE (test code = 2215) 101 MEQ/L CARBON DIOXIDE (test code = 2206) 22 MEQ/L CALCIUM (test code = 2209) 9.4 MG/DL PROTEIN, TOTAL (test code = 2229) 7.4 G/DL ALBUMIN (test code = 220) 4.2 G/DL CALC GLOBULIN (test code = 2240) 3.2 G/DL CALC A/G RATIO (test code = 2234) 1.3 RATIO BILIRUBIN, TOTAL (test code = 2207) <0.2 MG/DL ALKALINE PHOSPHATASE (test code = 2203) 87 U/L AST (test code = 221) 21 U/L ALT (test code = 2219) 24 U/L Omid BlasALBUMIN/CREATININE RATIO, RANDOM [id number] 00:00:00* Test Item Value Reference Range Interpretation Comme [facility] CREATININE, URINE, CONC. (te st code = 2072) 107.6 MG/DL ALBUMIN, URINE, RANDOM (test code = 26398) 1.3 MG/DL CALC ALBUMIN/CREAT, RND (dyllan t code = 03313) 12 MG/G Omid BlasHIV 1/2 4TH GEN, RFLX [id number] 00:00:00* Test Item Value Reference Range Interpretation Comme nts HIV 1/2 4TH GEN, RFLX CONF ( test code = 3514) NON-REACTIVE Omid BlasACUTE HEPATITIS [id number] 00:00:00* Test Item Value Reference Range Interpretation Comme nts HEPATITIS A IgM (test code = 59365) NON-REACTIVE HEPATITIS B CORE IgM (test c ode = 4644) NON-REACTIVE HEPATITIS B SURF AG (test co de = 2739) NON-REACTIVE HEPATITIS C ANTIBODY (test c ode = 4629) NON-REACTIVE INTERPRETATION HEPATITIS A: (test code = 2552) (NOTE) INTERPRETATION HEPATITIS B: (test code = 38237) (NOTE) INTERPRETATION HEPATITIS C: (test code = 42556) (NOTE) Omid BlasPOCT MOLECULAR [id number] 19:44:19* Test Item Value Reference Range Interpretation Comme nts POCT Molecular Strep (test c ode = 44669-4) Positive Negative A Lab Interpretation (test cod e = 66131-4) Abnormal [facility] SARS-COV-2 ANTIGEN (BINAX NOW)[id number] 19:43:00* Test Item Value Reference Range Interpretation Comme nts POCT SARS-COV-2 ANTIGEN (dyllan t code = 20754-0) Not Detected Not Detected On board controls acceptable with C Line (test code = 3574) Yes Lab Interpretation (test cod e = 93294-1) Normal [facility] Molecular [id number] 19:27:05* Test Item Value Reference Range Interpretation Comme nts POCT Molecular FluA (test co de = 81604-7) Negative Negative POCT Molecular FluB (test co de = 60365-3) Negative Negative Lab Interpretation (test cod e = 80187-9) Normal [facility] [id number] 08:37:14SPECIMEN NUMBER: [id number] CULTURE, URINE SPECIMEN NUMBER: [id number] SPECIMEN COMMENT: URINE SOURCE: URINE REPORT STATUS: FINAL FINAL REPORT: 10/04/2023 >100,000 CFU/ML UROGENITAL MEMO PRESENT NO COMMON PATHOGENS UNLESS OTHERWISE INDICATED, ALL TESTING PERFORMED AT [facility] [address] [place] [address] DIRECTOR OF PHYSICAL EDUCATION: PHILIP SOLIS M.D. CLIA NUMBER [id number] [place]. [id number], [id number] 00:00:00* Test Item Value Reference Range Interpretation Comme nts CULTURE, URINE (test code = 16211) SPECIMEN NUMBER: [id number] Omid Holbrook [facility], [id number] 00:00:00* Test Item Value Reference Range Interpretation Comme nts CULTURE, URINE (test code = 35862) SPECIMEN NUMBER: [id number] Omid Holbrook [facility] HEMOGLOBIN A1C [id number] 14:03:00* Test Item Value Reference Range Interpretation Comme nts POCT HBA1C (test code = 4548-4) 6.5 % 4-6 A Lab Interpretation (test cod e = 87640-6) Abnormal [facility] HEMOGLOBIN A1C [id number] 14:03:00* Test Item Value Reference Range Interpretation Comme nts POCT HBA1C (test code = 4548-4) 6.5 % 4-6 A Lab Interpretation (test cod e = 88304-5) Abnormal [facility] HEMOGLOBIN A1C [id number] 14:05:00* Test Item Value Reference Range Interpretation Comme nts POCT HBA1C (test code = 4548-4) 7.7 % 4-6 A Lab Interpretation (test cod e = 43906-1) Abnormal [facility] HEMOGLOBIN A1C [id number] 14:05:00* Test Item Value Reference Range Interpretation Comme nts POCT HBA1C (test code = 4548-4) 7.7 % 4-6 A Lab Interpretation (test cod e = 04959-8) [facility] [id number] 09:36:44SPECIMEN NUMBER: [id number] CULTURE, URINE SPECIMEN NUMBER: [id number] SPECIMEN COMMENT: URINE SOURCE: URINE REPORT STATUS: FINAL FINAL REPORT: 10/30/2022 10-50,000 CFU/ML UROGENITAL MEMO PRESENT NOCOMMON PATHOGENSCULTURE, [id number] 00:00:00* Test Item Value Reference Range Interpretation Comme nts CULTURE, URINE (test code = 01488) SPECIMEN NUMBER: [id number] Omid BlasCULTURE, [id number] 00:00:00* Test Item Value Reference Range Interpretation Comme nts CULTURE, URINE (test code = 03045) SPECIMEN NUMBER: [id number] Omid Holbrook [place], NAAT, [id number] 21:30:51* Test Item Value Reference Range Interpretation Comme nts CHLAMYDIA, NAAT, URINE (test code = 35071) NEGATIVE NEGATIVE Testing is perfo rmed with [employer] [facility] YVON 6800/8800 systems usingreal-time polymerase chain reaction (PCR) method. A negative result does not exclude low level infection, specimensampling error, or collection error. GONORRHEA, NAAT, URINE (test code = 61633) NEGATIVE NEGATIVE Testing is perfo rmed with [employer] [facility]ON 6800/8800 systems usingreal-time polymerase chain reaction (PCR) method. A negative result does not exclude low level infection, specimensampling error, or collection error. TSH, THIRD [id number] 06:11:20* Test Item Value Reference Range Interpretation Comme [facility] TSH, THIRD GENERATION (test code = 2821) 0.955 UIU/ML 0.400-4.100 HEMOGLOBIN [id number] 04:04:59* Test Item Value Reference Range Interpretation Comme [facility] HEMOGLOBIN A1c (test code = 26423) 6.8 % 4.2-5.6 H [employer] GUIDELINES FOR HGB A1C: PREDIABETES/INCREASED RISK . . . . . . . 5.7-6.4% DIAGNOSIS OF DIABETES . . . . . . . . . >=6.5% WITH CONFIRMATION OR APPROPRIATE SYMPTOMS NOTE: ASSAY MAY BE AFFECTED BY HEMOGLOBINOPATHIES (SICKLE CELL ANEMIA, S-C DISEASE, OTHERS) OR ARTIFICIALLY LOWERED BY DECREASED RED CELL SURVIVAL (HEMOLYTIC ANEMIAS, BLOOD LOSS, ETC.). CONSIDER ALTERNATE TESTING OR LABORATORY CONSULTATION. [id number] 03:35:54* Test Item Value Reference Range Interpretation Comme [facility] RPR RESULT (test code = 3501) NON-REACTIVE NON-REACTIVE RPR TITER (test code = 3500) NOT INDIC. TITER NOT INDIC. HIV 1/2 4TH GEN, RFLX [id number] 03:22:43* Test Item Value Reference Range Interpretation Comme [facility] HIV 1/2 4TH GEN, RFLX CONF ( test code = 3514) NON-REACTIVE NON-REACTIVE HEPATITIS PANEL, [id number] 03:22:43* Test Item Value Reference Range Interpretation Comme [facility] HEPATITIS A IgM (test code = 86060) NON-REACTIVE NON-REACTIVE HEPATITIS B CORE IgM (test code = 4644) NON-REACTIVE NON-REACTIVE HEPATITIS B SURF AG (test code = 2739) NON-REACTIVE NON-REACTIVE HEPATITIS C ANTIBODY (test code = 4675) NON-REACTIVE NON-REACTIVE INTERPRETATION HEPATITIS A: (test code = 2552) (NOTE) Hepatitis A sero logy shows no evidence of acute hepatitis A. INTERPRETATION HEPATITIS B: (test code = 11258) (NOTE) Hepatitis B sero logy shows no evidence of acute hepatitis B andno indication of exposure to hepatitis B virus in the previous kain eight months. INTERPRETATION HEPATITIS C: (test code = 64735) (NOTE) Hepatitis C sero logy shows no evidence of exposure to hepatitisC virus at this time. It can take up to 12 months after exposure tothe hepatitis C virus for antibodies to become detectable in the blood in certain patients. [facility] has important pathology staff changes effective 10/30/2022. New pathology staff will provide uninterrupted, excellent patient care and clinical consultation. See URL: [email or web address]. UNLESS OTHERWISE INDICATED, ALL TESTING PERFORMED AT [facility] [address] [place] [address] DIRECTOR OF PHYSICAL EDUCATION: WILLIE MORENO M.D. CLIA NUMBER [id number] [facility]. [id number] CBC W/AUTO DIFF WITH [id number] 02:39:59* Test Item Value Reference Range Interpretation Comme nts WBC (test code = 1001) 7.4 K/UL 3.5-11.0 RBC (test code = 1002) 4.74 M/UL 3.80-5.40 HEMOGLOBIN (test code = 1003) 14.3 G/DL 11.5-15.5 HEMATOCRIT (test code = 1004) 43.2 % 34.0-45.0 MCV (test code = 1005) 91.1 fL 80.0-99.0 MCH (test code = 1006) 30.2 PG 25.0-33.0 MCHC (test code = 1007) 33.1 G/DL 31.0-36.0 RDW (test code = 1038) 11.9 % 11.5-15.0 NEUTROPHILS (test code = 1008) 55.6 % LYMPHOCYTES (test code = 1010) 35.9 % MONOCYTES (test code = 1011) 5.8 % EOSINOPHILS (test code = 1012) 1.9 % BASOPHILS (test code = 1013) 0.5 % IMMATURE GRANULOCYTES (test code = 1036) 0.3 % NUCLEATED RBCS (test code = 1065) 0.0 /100 WBC'S See_Comment [Automated Card [employer]] The system which generated this result transmitted reference range: 0.0. The reference range was not used to interpret this result as normal/abnormal. PLATELET COUNT (test code = 1015) 257 K/UL 130-400 ABSOLUTE NEUTROPHILS (test code = 1066) 4.12 K/UL 1.50-7.50 ABSOLUTE LYMPHOCYTES (test code = 1067) 2.66 K/UL 1.00-4.00 ABSOLUTE MONOCYTES (test code = 1068) 0.43 K/UL 0.20-1.00 ABSOLUTE EOSINOPHILS (test code = 1040) 0.14 K/UL 0.00-0.50 ABSOLUTE BASOPHILS (test code = 1069) 0.04 K/UL 0.00-0.20 ABS IMMATURE GRANULOCYTES (test code = 1020) 0.02 K/UL 0.00-0.10 ABS NUCLEATED RBCS (test code = 77834) 0.00 K/UL 0.00-0.11 LIPID [id number] 02:29:40* Test Item Value Reference Range Interpretation Comme nts CHOLESTEROL (test code = 2210) 199 MG/DL <200 TRIGLYCERIDES (test code = 2232) 148 MG/DL <150 HDL CHOLESTEROL (test code = 2220) 34 MG/DL >39 L CALC LDL CHOL (test code = 2237) 138 MG/DL <100 H NOTE: CALCULATED LDL IS BASED ON ITA-SINGLETARY METHOD WHICHINCLUDES ADJUSTABLE TRIGLYCERIDE:VLDL CHOLESTEROL RATIO.THIS FACTOR VARIES BY MEASURED TRIGLYCERIDE AND NON-HDLCHOLESTEROL CONCENTRATIONS WITH INCREASED CALCULATED LDL SEENIN HIGHER TRIGLYCERIDE OR LOWER NON-HDL SPECIMENS. FOR MOREINFORMATION, SEE CLIENT ANNOUNCEMENT AT [email or web address] RATIO LDL/HDL (test code = 2238) 4.06 RATIO <3.22 H COMPREHENSIVE METABOLIC [id number] 02:29:40* Test Item Value Reference Range Interpretation Comme nts GLUCOSE (test code = 2217) 238 MG/DL 70-99 H BUN (test code = 220) 7 MG/DL 6-20 CREATININE (test code = 2214) 0.69 MG/DL 0.60-1.30 eGFR (2020 CKD-EPI) (test code = 22572) 126 ML/MIN/1.73 >60 CALC BUN/CREAT (test code = 2235) 10 RATIO 6-28 SODIUM (test code = 223) 140 MEQ/L 133-146 POTASSIUM (test code = 2228) 4.2 MEQ/L 3.5-5.4 CHLORIDE (test code = 2215) 102 MEQ/L 95-107 CARBON DIOXIDE (test code = 2206) 26 MEQ/L 19-31 CALCIUM (test code = 2209) 9.0 MG/DL 8.5-10.5 PROTEIN, TOTAL (test code = 2229) 7.1 G/DL 6.1-8.3 ALBUMIN (test code = 2201) 4.1 G/DL 3.5-5.2 CALC GLOBULIN (test code = 2240) 3.0 G/DL 1.9-3.7 CALC A/G RATIO (test code = 2234) 1.4 RATIO 1.0-2.6 BILIRUBIN, TOTAL (test code = 2207) <0.2 MG/DL See_Comment [Automated me ssage] The system which generated this result transmitted reference range: <=1.2. The reference range was not used to interpret this result as normal/abnormal. ALKALINE PHOSPHATASE (test code = 2203) 90 U/L 38-117 AST (test code = 2218) 14 U/L 9-40 ALT (test code = 221) 15 U/L 5-40 HIV 1/2 4TH GEN, RFLX [id number] 00:00:00* Test Item Value Reference Range Interpretation Comme nts HIV 1/2 4TH GEN, RFLX CONF ( test code = 3514) NON-REACTIVE Omid [id number] 00:00:00* Test Item Value Reference Range Interpretation Comme nts RPR RESULT (test code = 3501) NON-REACTIVE RPR TITER (test code = 3500) NOT INDIC. TITER Omid BlasACUTE HEPATITIS [id number] 00:00:00* Test Item Value Reference Range Interpretation Comme nts HEPATITIS A IgM (test code = 61992) NON-REACTIVE HEPATITIS B CORE IgM (test c ode = 4644) NON-REACTIVE HEPATITIS B SURF AG (test co de = 2739) NON-REACTIVE HBSAG CONFIRMATION TEST (dyllan t code = 2741) DNR HEPATITIS C ANTIBODY (test c ode = 4621) NON-REACTIVE INTERPRETATION HEPATITIS A: (test code = 2552) (NOTE) INTERPRETATION HEPATITIS B: (test code = 61075) (NOTE) INTERPRETATION HEPATITIS C: (test code = 73311) (NOTE) Omid BlasCBC W/AUTO [id number] 00:00:00* Test Item Value Reference Range Interpretation Comme nts WBC (test code = 1001) 7.4 K/UL RBC (test code = 1002) 4.74 M/UL HEMOGLOBIN (test code = 1003) 14.3 G/DL HEMATOCRIT (test code = 1004) 43.2 % MCV (test code = 1005) 91.1 fL MCH (test code = 1006) 30.2 PG MCHC (test code = 1007) 33.1 G/DL RDW (test code = 1038) 11.9 % NEUTROPHILS (test code = 1008) 55.6 % BANDS (test code = 1009) DNR % LYMPHOCYTES (test code = 1010) 35.9 % MONOCYTES (test code = 1011) 5.8 % EOSINOPHILS (test code = 1012) 1.9 % BASOPHILS (test code = 1013) 0.5 % IMMATURE GRANULOCYTES (test code = 1036) 0.3 % METAMYELOCYTES (test code = 1061) DNR % MYELOCYTES (test code = 1062) DNR % PROMYELOCYTES (test code = 1063) DNR % BLASTS (test code = 1064) DNR % NUCLEATED RBCS (test code = 1065) 0.0 /100WBC'S PLATELET COUNT (test code = 1015) 257 K/UL ABSOLUTE NEUTROPHILS (test c ode = 1066) 4.12 K/UL ABSOLUTE LYMPHOCYTES (test c ode = 1067) 2.66 K/UL ABSOLUTE MONOCYTES (test cod e = 1068) 0.43 K/UL ABSOLUTE EOSINOPHILS (test c ode = 1040) 0.14 K/UL ABSOLUTE BASOPHILS (test cod e = 1069) 0.04 K/UL ABS IMMATURE GRANULOCYTES (t est code = 1020) 0.02 K/UL ABS NUCLEATED RBCS (test cod e = 02802) 0.00 K/UL COMMENTS (test code = 1016) DNR Omid Holbrook AustinHEMOGLOBIN [id number] 00:00:00* Test Item Value Reference Range Interpretation Comme nts HEMOGLOBIN A1c (test code = 82664) 6.8 % Omid Holbrook AustinLIPID [id number] 00:00:00* Test Item Value Reference Range Interpretation Comme nts CHOLESTEROL (test code = 2210) 199 MG/DL TRIGLYCERIDES (test code = 2232) 148 MG/DL HDL CHOLESTEROL (test code = 2220) 34 MG/DL CALC LDL CHOL (test code = 2237) 138 MG/DL RISK RATIO LDL/HDL (test cod e = 2238) 4.06 RATIO Omid BlasCOMPREHENSIVE METABOLIC [id number] 00:00:00* Test Item Value Reference Range Interpretation Comme nts GLUCOSE (test code = 2217) 238 MG/DL BUN (test code = 2208) 7 MG/DL CREATININE (test code = 2214) 0.69 MG/DL eGFR (2020 CKD-EPI) (test code = 22717) 126 ML/MIN/1.73 CALC BUN/CREAT (test code = 2235) 10 RATIO SODIUM (test code = 2231) 140 MEQ/L POTASSIUM (test code = 2228) 4.2 MEQ/L CHLORIDE (test code = 2215) 102 MEQ/L CARBON DIOXIDE (test code = 2206) 26 MEQ/L CALCIUM (test code = 2209) 9.0 MG/DL PROTEIN, TOTAL (test code = 2229) 7.1 G/DL ALBUMIN (test code = 2201) 4.1 G/DL CALC GLOBULIN (test code = 2240) 3.0 G/DL CALC A/G RATIO (test code = 2234) 1.4 RATIO BILIRUBIN, TOTAL (test code = 2207) <0.2 MG/DL ALKALINE PHOSPHATASE (test code = 2204) 90 U/L AST (test code = 2218) 14 U/L ALT (test code = 2219) 15 U/L Omid BlasTSH, THIRD [id number] 00:00:00* Test Item Value Reference Range Interpretation Comme nts TSH, THIRD GENERATION (test code = 2821) 0.955 UIU/ML Omid BlasCT/NG, TMA, [id number] 00:00:00* Test Item Value Reference Range Interpretation Comme nts CHLAMYDIA, NAAT, URINE (test code = 14729) NEGATIVE GONORRHEA, NAAT, URINE (test code = 78288) NEGATIVE Omid BlasHIV 1/2 4TH GEN, RFLX [id number] 00:00:00* Test Item Value Reference Range Interpretation Comme nts HIV 1/2 4TH GEN, RFLX CONF ( test code = 3514) NON-REACTIVE Omid [id number] 00:00:00* Test Item Value Reference Range Interpretation Comme nts RPR RESULT (test code = 3501) NON-REACTIVE RPR TITER (test code = 3500) NOT INDIC. TITER Omid BlasACUTE HEPATITIS [id number] 00:00:00* Test Item Value Reference Range Interpretation Comme nts HEPATITIS A IgM (test code = 16554) NON-REACTIVE HEPATITIS B CORE IgM (test c ode = 4644) NON-REACTIVE HEPATITIS B SURF AG (test co de = 4649) NON-REACTIVE HBSAG CONFIRMATION TEST (dyllan t code = 2741) DNR HEPATITIS C ANTIBODY (test c ode = 4675) NON-REACTIVE INTERPRETATION HEPATITIS A: (test code = 2552) (NOTE) INTERPRETATION HEPATITIS B: (test code = 52551) (NOTE) INTERPRETATION HEPATITIS C: (test code = 98125) (NOTE) Omid BlasCBC W/AUTO [id number] 00:00:00* Test Item Value Reference Range Interpretation Comme nts WBC (test code = 1001) 7.4 K/UL RBC (test code = 1002) 4.74 M/UL HEMOGLOBIN (test code = 1003) 14.3 G/DL HEMATOCRIT (test code = 1004) 43.2 % MCV (test code = 1005) 91.1 fL MCH (test code = 1006) 30.2 PG MCHC (test code = 1007) 33.1 G/DL RDW (test code = 1038) 11.9 % NEUTROPHILS (test code = 1008) 55.6 % BANDS (test code = 1009) DNR % LYMPHOCYTES (test code = 1010) 35.9 % MONOCYTES (test code = 1011) 5.8 % EOSINOPHILS (test code = 1012) 1.9 % BASOPHILS (test code = 1013) 0.5 % IMMATURE GRANULOCYTES (test code = 1036) 0.3 % METAMYELOCYTES (test code = 1061) DNR % MYELOCYTES (test code = 1062) DNR % PROMYELOCYTES (test code = 1063) DNR % BLASTS (test code = 1064) DNR % NUCLEATED RBCS (test code = 1065) 0.0 /100WBC'S PLATELET COUNT (test code = 1015) 257 K/UL ABSOLUTE NEUTROPHILS (test c ode = 1066) 4.12 K/UL ABSOLUTE LYMPHOCYTES (test c ode = 1067) 2.66 K/UL ABSOLUTE MONOCYTES (test cod e = 1068) 0.43 K/UL ABSOLUTE EOSINOPHILS (test c ode = 1040) 0.14 K/UL ABSOLUTE BASOPHILS (test cod e = 1069) 0.04 K/UL ABS IMMATURE GRANULOCYTES (t est code = 1020) 0.02 K/UL ABS NUCLEATED RBCS (test cod e = 97623) 0.00 K/UL COMMENTS (test code = 1016) DNR Omid BlasHEMOGLOBIN [id number] 00:00:00* Test Item Value Reference Range Interpretation Comme nts HEMOGLOBIN A1c (test code = 36037) 6.8 % Omid BlasLIPID [id number] 00:00:00* Test Item Value Reference Range Interpretation Comme nts CHOLESTEROL (test code = 2210) 199 MG/DL TRIGLYCERIDES (test code = 2232) 148 MG/DL HDL CHOLESTEROL (test code = 2220) 34 MG/DL CALC LDL CHOL (test code = 2237) 138 MG/DL RISK RATIO LDL/HDL (test cod e = 2238) 4.06 RATIO Omid BlsaCOMPREHENSIVE METABOLIC [id number] 00:00:00* Test Item Value Reference Range Interpretation Comme nts GLUCOSE (test code = 2217) 238 MG/DL BUN (test code = 2208) 7 MG/DL CREATININE (test code = 2214) 0.69 MG/DL eGFR (2020 CKD-EPI) (test code = 82973) 126 ML/MIN/1.73 CALC BUN/CREAT (test code = 2235) 10 RATIO SODIUM (test code = 2231) 140 MEQ/L POTASSIUM (test code = 2228) 4.2 MEQ/L CHLORIDE (test code = 2215) 102 MEQ/L CARBON DIOXIDE (test code = 2206) 26 MEQ/L CALCIUM (test code = 2209) 9.0 MG/DL PROTEIN, TOTAL (test code = 2229) 7.1 G/DL ALBUMIN (test code = 2201) 4.1 G/DL CALC GLOBULIN (test code = 2240) 3.0 G/DL CALC A/G RATIO (test code = 2234) 1.4 RATIO BILIRUBIN, TOTAL (test code = 2207) <0.2 MG/DL ALKALINE PHOSPHATASE (test code = 2204) 90 U/L AST (test code = 2218) 14 U/L ALT (test code = 2219) 15 U/L Omid BlasTSH, THIRD [id number] 00:00:00* Test Item Value Reference Range Interpretation Comme nts TSH, THIRD GENERATION (test code = 2821) 0.955 UIU/ML Omid BlasCT/NG, TMA, [id number] 00:00:00* Test Item Value Reference Range Interpretation Comme nts CHLAMYDIA, NAAT, URINE (test code = 24276) NEGATIVE GONORRHEA, NAAT, URINE (test code = 06835) NEGATIVE Omid BlasPOCT HEMOGLOBIN A1C [id number] 16:46:00* Test Item Value Reference Range Interpretation Comme nts POCT HBA1C (test code = 4548-4) 9.6 % 4-6 A Lab Interpretation (test cod e = 64209-6) Abnormal [facility] HEMOGLOBIN A1C [id number] 16:46:00* Test Item Value Reference Range Interpretation Comme nts POCT HBA1C (test code = 4548-4) 9.6 % 4-6 A Lab Interpretation (test cod e = 49482-3) [facility] [id number] 12:28:05SPECIMEN NUMBER: [id number] CULTURE, URINE SPECIMEN NUMBER: [id number] SPECIMEN COMMENT: URINE SOURCE: URINE REPORT STATUS: FINAL FINAL REPORT: 09/26/2021 50-100,000 CFU/ML UROGENITAL MEMO PRESENT NO COMMON PATHOGENS UNLESS OTHERWISE INDICATED, ALL TESTING PERFORMED [facility] [address] [place] [address] DIRECTOR OF PHYSICAL EDUCATION: WILLIE MORENO M.D. CLIA NUMBER [id number] CAP [place] [id number], [id number] 00:00:00* Test Item Value Reference Range Interpretation Comme nts CULTURE, URINE (test code = 16363) SPECIMEN NUMBER: [id number] Omid BlasCULTDARNELL, [id number] 00:00:00* Test Item Value Reference Range Interpretation Comme nts CULTURE, URINE (test code = 26865) SPECIMEN NUMBER: [id number] Omid Blas Notes Date/Time Note Provider Source 2024-02-10 11:35:05 8294-82-24F15:35:05 PA archived by pharmacy 45363-1Gybuvnbpn encounter RspzQX1977-09-67K53:35:15Telephone encounter NoteTXT1.2.840.664091.1.13.104.2.7. 2.105559|[id number] for patient mvba67204-7AvlfQNCNZUUZZOZAwbcriybb C-CDA narrative [id number] [place] RN[address] MupeV[id number] 7CZWJTRHMWIKUTLHRZHJFED6893-77-38F8 1:35:151.2.840.423208.1.72.3.15|1.2 .840.013201.1.13.104.2.7.2.727879_2 [id number] Eddie Clarke RN [facility] 2024-02-10 00:00:00 nyDjv9Y8tU6oW5wBqgGkOtVHMAGh8p/iRWk it9kl+VvdyL0UMlpNSksdlFr/6teP9678-5 02-09T00:00:00+ + --+| Plan Activity | Plan Date |+ + +| Recommend daily exercise as part of a healthy lifestyle | 2021-09-24 |+ + +| low sodium, low cholesterol, low fat diet, increase fruits/ vegetables, whole | 2021-09-24 || grains; Alcohol moderation; Exercise; Weight management | |+ + +| push water | 2021-09-24 || UA sent UC | || advised to cut back on sodas, caffeine | |+ + +| otc nsaids prn | 2021-09-24 || push fluids | |+ + +| Healthy diet, exercise, and weight management as discussed. | 2022-10-28 |+ + +| Smoking cessation advised. | 2022-10-28 |+ + +| Continue Metformin 1000mg ER BID | 2022-10-28 || Continue Novolin R due to not being able to afford Tresiba. Will consider | || Lantus or Levemir mooney pay with [facility]. | || Order Lipid panel, HbA1c and urine microalbumin/creatinine | |+ + +| UA, Urine culture | 2022-10-28 || Macrobid BID x 5 days | || Will update plan of care based on results. | |+ + +| Fluconazole 1 tablet today. then repeat in 4 days. | 2022-10-28 || Pt has h/o yeast infections with antibiotics + dm | |+ + +| TSH | 2022-10-28 |+ + +| Lipid panel. | 2022-10-28 |+ + +| HIV test | 2022-10-28 |+ + +| Order STI panel | 2022-10-28 |+ + +| Order CBC and CMP | 2022-10-28 |+ + +| Obese, patient's height and weight are not proportionate. | 2022-11-04 |+ + +| low sodium, low cholesterol, low fat diet, increase fruits/ vegetables, whole | 2023-10-01 || grains; Alcohol moderation; Exercise; Weight management | |+ + +| SLIM craig, send for culture | 2023-10-01 || will start treatment based on reported s/s | || RX Nitrofurantoin Monohyd Macro 100 MG Capsule TAKE 1 CAPSULE TWICE DAILY | || medication use, potential side effects | || RTO if symptoms persist or worsen | |+ + +| recommend tobacco cessation | 2023-11-12 || consider setting a quit date | || consider medications to help with cravings if needed | || continue to monitor | |+ + +| Pt started period today. Pt will start OCP on Friday. | 2023-11-12 || Sprintec rx sent. | || Medication indications and SE discussed. | || Barrier contraceptive recommended for 7 days after starting OCP | || RTO 3 months for f/u. | |+ + +| 02/03/2024-Flu vaccine given | 2024-02-08 |+ + +| Sprintec OCP refilled. | 2024-02-11 || Medication education given. | || Barrier contraception recommended for next 2 weeks d/t running out of last | || week. | || RTO as needed | |+ + +17379-9Nj an of TreatmentLNCARE PLANTXTSFA|[id number]|2.16.840.1.1 76529.10.20.22.2.10AVAvailable for patient kkmpZzpfdcdYiyhczyeyJWFAe88 Section NarrativeNARRATIVEFormatted C-CDA narrative textSFAStGrand View Health2024-06-12T00:00:00 [facility] 09:14:51 2503-82-62N01:14:51 Images from the original note were not included.ISREAL HILLSBA FLEX TOUCH 26442-1Aywhziznt encounter TscbLM8897-85-36W74:17:03Telephone encounter NoteTXT1.2.840.268732.1.13.104.2.7. 2.222258|[id number] for patient qunt35206-1TlwkUDRKBSMOAJSRhouyirqx C-CDA narrative [id number] Elleven [address] WfsuXjbmmxntrLomcuagaeMSBI474988235 8JULCJEPANHORUEKCFIRMNK3957-14-36W3 9:17:031.2.840.566311.1.72.3.15|1.2 .840.942269.1.13.104.2.7.2.727879_2 [id number] Savannah Gabriel LARRY [facility] 2024-02-03 00:00:00 T/1bfnju9mQG1O4sGEBphJDZgpWAUyInewK hETzbp0xFmh8LalFADgq5OThM+zPv3355-9 02-02T00:00:00+ + --+| Plan Activity | Plan Date |+ + +| Recommend daily exercise as part of a healthy lifestyle | 2021-09-24 |+ + +| low sodium, low cholesterol, low fat diet, increase fruits/ vegetables, whole | 2021-09-24 || grains; Alcohol moderation; Exercise; Weight management | |+ + +| push water | 2021-09-24 || UA sent UC | || advised to cut back on sodas, caffeine | |+ + +| sonido morfin | 2021-09-24 || push fluids | |+ + +| Healthy diet, exercise, and weight management as discussed. | 2022-10-28 |+ + +| Smoking cessation advised. | 2022-10-28 |+ + +| Continue Metformin 1000mg ER BID | 2022-10-28 || Continue Novolin R due to not being able to afford Tresiba. Will consider | || Lantus or Levemir mooney pay with [facility]. | || Order Lipid panel, HbA1c and urine microalbumin/creatinine | |+ + +| UA, Urine culture | 2022-10-28 || Macrobid BID x 5 days | || Will update plan of care based on results. | |+ + +| Fluconazole 1 tablet today. then repeat in 4 days. | 2022-10-28 || Pt has h/o yeast infections with antibiotics + dm | |+ + +| TSH | 2022-10-28 |+ + +| Lipid panel. | 2022-10-28 |+ + +| HIV test | 2022-10-28 |+ + +| Order STI panel | 2022-10-28 |+ + +| Order CBC and CMP | 2022-10-28 |+ + +| Obese, patient's height and weight are not proportionate. | 2022-11-04 |+ + +| low sodium, low cholesterol, low fat diet, increase fruits/ vegetables, whole | 2023-10-01 || grains; Alcohol moderation; Exercise; Weight management | |+ + +| SLIM craig, send for culture | 2023-10-01 || will start treatment based on reported s/s | || RX Nitrofurantoin Monohyd Macro 100 MG Capsule TAKE 1 CAPSULE TWICE DAILY | || medication use, potential side effects | || RTO if symptoms persist or worsen | |+ + +| recommend tobacco cessation | 2023-11-12 || consider setting a quit date | || consider medications to help with cravings if needed | || continue to monitor | |+ + +| Pt started period today. Pt will start OCP on Friday. | 2023-11-12 || Sprintec rx sent. | || Medication indications and SE discussed. | || Barrier contraceptive recommended for 7 days after starting OCP | || RTO 3 months for f/u. | |+ + +| 02/03/2024-Flu vaccine given | 2024-02-08 |+ + +23150-0Hv an of TreatmentLNCARE PLANTXTSFA|[id number]|2.16.840.1.1 17165.10.20.22.2.10AVAvailable for patient cdnsAqqpaizNvldgqtdjSCRJk71 Section NarrativeNARRATIVEFormatted C-CDA narrative textSFAStbakari Hopson [facility]2024-06-09T00:00:00 Omid [facility] 2023-11-04 13:00:07 2109-31-34T04:00:07 ISREAL submitted. Awaiting outcomeThank you for creating a prior authorization request using [employer].The prior authorization department will contact you if additional information is needed. Once a decision is made you will be notified of the decision.You can check the status of your request using the Check Status link. Please note down (Prior Auth EOC ID) to check status.Prior Authorization request details:Prior Auth (EOC) ID: [id number] Drug/Service Name: TRESIBA FLEXTOUCH 100 UNIT/MLPatient: Feilpa Benavides Date Requested: 11/04/2023 1:56:47 PMMemberID: [id number] : 2000 34100-4Wcjdhgkcv encounter IgtrVG3052-33-91G49:19:49Telephone encounter NoteTXT1.2.840.634168.1.13.104.2.7. 2.134995|[id number] for patient wcgu76725-7GvpfMUPIVGDHWWECtnbduaad C-CDA narrative text[address] ZesuNmkrblsoaZxxbckohkRXCM913072299 8OEOYLXMBGPPSXKVWXTDJAH5775-25-46I1 3:19:491.2.840.744766.1.72.3.15|1.2 .840.443323.1.13.104.2.7.2.727879_2 [id number] [facility] 2023-11-04 11:46:51 4442-73-66X35:46:51 Images from the original note were not included. 79992-3Crwthsfqw encounter UqpzJJ9634-50-57F29:47:43Telephone encounter NoteTXT1.2.840.343650.1.13.104.2.7. 2.403559|[id number] for patient pyek09540-1RhytMUWFWVKJRSHApqrlpsoo C-CDA narrative [id number] [address] Hl[id number] 1ASZYCPLZAETDJDEEFDNMJJ7240-63-55L4 1:47:431.2.840.324979.1.72.3.15|1.2 .840.858214.1.13.104.2.7.2.727879_2 [id number] Fifi Lao [facility] 2023-10-20 14:38:17 8797-69-00H81:38:17 Spoke with [employer] congressional representative who stated patient did not qualify for patient assistance for Ozempic and Tresiba. Sent mychart message to let patient know and to respond back with the pharmacy she would like to use so her prescriptions can be sent in. 98701-3Vakeitbim encounter OdtzTK3723-58-32N21:41:13Telephone encounter NoteTXT1.2.840.087791.1.13.104.2.7. 2.023400|[id number] for patient tsyj84503-6JlzxUBYXKWHZTLCOgzhwuedo C-CDA narrative [employer] StreetWrysWpuecyjbvIbjzxpxqlKOKG385833945 4RGORLLTXKRUJUNIEASHISA5935-79-67D8 4:41:131.2.840.840192.1.72.3.15|1.2 .840.080707.1.13.104.2.7.2.727879_2 [id number] [facility] 2023-10-20 08:24:55 0873-47-18L66:24:55 Sent patient mychart message with update. Closing encounter 16923-5Njuobtzcw encounter LcubJJ1784-87-17B98:25:21Telephone encounter NoteTXT1.2.840.413990.1.13.104.2.7. 2.239989|[id number] for patient lsnr39309-6YnkgQARKABKTYBYVisabnekp C-CDA narrative [address]ur[address] Jones [id number] 1XJYNPWIVFZUZQSVZYYAQRM1330-25-07B4 8:25:211.2.840.193516.1.72.3.15|1.2 .840.162889.1.13.104.2.7.2.727879_2 [id number] [facility] 2023-10-13 09:52:14 3877-07-50O52:52:14 Felipa Benavides is a 22 year old female is requesting refills for Tresiba and Ozempic through [employer]. Please call to assist her. [phone] signed by Daniela Early at 10/13/2023 9:55 AM RNB86696-1Kkpwkagyz encounter PnfhBW8886-60-59F93:55:12Telephone encounter NoteTXT1.2.840.080656.1.13.104.2.7. 2.728908|[id number] for patient lzan23059-2VcezJMKOCLNJMCYQgzyxuwed C-CDA narrative [id number] J [address]oudreau[address] Pi[id number] 3QBTPXXYBWODGRIGTKQXJXM9081-82-49M7 9:55:121.2.840.743164.1.72.3.15|1.2 .840.650770.1.13.104.2.7.2.727879_2 [id number] Daniela Early [facility] 2023-09-17 08:08:25 3123-72-95J92:08:25 LILIAN 07/14/23NOV 12/16/23 (cancelled by clinic)Per LILIAN note:- CW tresiba 50 units daily- Ozempc 1 mg weekly and metformin 1 g BID 02142-4Jriisedft encounter JtqqBQ4393-37-08Z12:11:46Telephone encounter NoteTXT1.2.840.398170.1.13.104.2.7. 2.409671|[id number] for patient vbsx35957-1XmhjVMLPWHGVBUOVoeggmasy C-CDA narrative textUT[address] KqqnJ[id number] 0XVFULKAWNDWWVPJGASABDC1642-77-86C8 8:11:461.2.840.830266.1.72.3.15|1.2 .840.442466.1.13.104.2.7.2.727879_2 [id number] [facility]
[2024-03-22] MEDS ORDERED: IBUPROFEN 400 MG TAB ONE (23:47)
[2024-03-22] MEDS ORDERED: ACETAMINOPHEN 325 MG TABLET ONE (23:47)
[2024-03-22] MEDS ORDERED: DIAZEPAM 5 MG TABLET ONE (23:47)
[2024-03-22] MEDS ORDERED: NA CHLORIDE 0.9% 2,000 ML ONE (23:47)
[2024-03-23 00:59] LABS: Specific Gravity 1.021 (1.005-1.030); Urine Bacteria None Seen /HPF (<20); Urine Bilirubin NEGATIVE (Negative); Urine Blood Negative (Negative); Urine Clarity Extremely Turbid (Clear); Urine Color Light-Yellow (Yellow); Urine Culture Reflex Order REFLEXED; Urine Glucose 4+ (Over) (Negative); Urine Ketones 1+ (Negative); Urine Micro Reflex YN NO BILL MICROSCOPIC; Urine Nitrite NEGATIVE (Negative); Urine Protein NEGATIVE (Negative); Urine RBC <5 /HPF (None Seen); Urine Urobilinogen Normal (Normal)
[2024-03-23 01:02] LABS: Absolute Monocytes 0.5 K/uL (0.1-1.3); Basophils % 0.2 % (0-1.3); Eosinophils % 0.3 % (0-4.4); Hematocrit 36.5 % (36.0-45.0); Hemoglobin 12.8 g/dL (12.0-15.0); Lymphocytes % 10.7 % (15.3-44.8); MCH 30.8 pg (27.0-35.0); MCHC 34.9 g/dL (32.0-36.0); MCV 88.3 fL (80-100); MPV 9.3 fL (7.6-11.3); Neutrophils % 83.8 % (41.7-73.7); Nucleated Red Blood Cells % 0.4 % (0-0); Platelets 225 thou/uL (152-406); RBC Red Blood Cell Count 4.14 M/uL (3.86-4.86); Red Cell Distribution Width 13.3 % (12.1-15.2)
[2024-03-23] MEDS ORDERED: CEFTRIAXONE 1000 MG/VIAL ONE (01:09)
[2024-03-23 01:10] LABS: ALT/SGPT 24 U/L (13-56); AST/SGOT 12 U/L (15-37); Albumin 3.2 g/dL (3.4-5.0); Albumin/Globulin Ratio 0.7 (1.1-1.8); Alkaline Phosphatase 75 U/L (45-117); Anion Gap 11.7 mEq/L (5.0-15.0); BUN Blood Urea Nitrogen 14 mg/dL (7-18); Bicarbonate 24 mEq/L (21-32); Bilirubin Total 0.3 mg/dL (0.2-1.0); Globulin 4.6 g/dL (2.3-3.5); Glomerular Filtration Rate 66 ml/min (=/>90); Glucose Level 362 mg/dL (74-106); Magnesium 1.6 mg/dL (1.6-2.4); NT PRO-BNP 50 pg/mL (<125); Potassium 3.7 mEq/L (3.5-5.1); Protein, Total 7.8 g/dL (6.4-8.2); Sodium Level 138 mEq/L (136-145)
[2024-03-23] MEDS ORDERED: NA CHLORIDE 0.9% 50 ML ONE (01:10)
[2024-03-23 01:11] LABS: Bilirubin Direct < 0.2 mg/dL (0-0.2); Bilirubin Indirect, Calculated 0.1 mg/dL (0.2-0.8)
[2024-03-23 01:18] LABS: SARS-CoV-2 Antigen CONTROL BLUE LINE VIS/BG OK; SARS-CoV-2 Antigen Rapid Res Negative (Negative)
--- NOTE | 2024-03-23 02:34 | ER ---
Nurse's Notes [facility] Name: Felipa Benavides Age: 23 yrs Sex: Female : 2000 Arrival Date: 03/22/2024 Time: 23:16 Bed 6 Private MD: Diagnosis: UTI/ Urinary tract infection, site not specified;Type 2 diabetes mellitus with hyperglycemia Presentation: 03/22 23:20 Chief complaint: Patient states: I've been very anxious and started having jw7 tremors/uncontrollable shaking, I also started running a fever. Coronavirus screen: At this time, the client does not indicate any symptoms associated with coronavirus-19. Ebola Screen: No symptoms or risks identified at this time. Initial Sepsis Screen: Does the patient meet any 2 criteria? No. Patient's initial sepsis screen is negative. Does the patient have a suspected source of infection? No. Patient's initial sepsis screen is negative. Risk Assessment: Do you want to hurt yourself or someone else? Patient reports no desire to harm self or others. Onset of symptoms was March 23, 2024. 23:20 Method Of Arrival: EMS: [facility] jw7 23:20 Acuity: EDILIA 3 jw7 Triage Assessment: 23:45 General: Appears in no apparent distress. comfortable, Behavior is cooperative, jw7 appropriate for age, anxious, restless. Pain: Denies pain. EENT: No deficits noted. No signs and/or symptoms were reported regarding the EENT system. Neuro: Level of Consciousness is awake, alert, obeys commands, Oriented to person, place, time, situation, Appropriate for age. Cardiovascular: Heart tones S1 S2 present Capillary refill < 3 seconds Clubbing of nail beds is absent JVD is absent Patient's skin is warm and dry. Respiratory: Airway is patent Trachea midline Respiratory effort is even, unlabored, Respiratory pattern is regular, symmetrical. GI: Abdomen is round non-distended, Bowel sounds present X 4 quads. Abd is soft and non tender X 4 quads. : No deficits noted. No signs and/or symptoms were reported regarding the genitourinary system. Derm: Skin is intact, is healthy with good turgor, Skin is dry, Skin is normal, Skin temperature is warm. Musculoskeletal: Circulation, motion, and sensation intact. Range of motion: intact in all extremities. CLINIC SUPERVISOR: 23:45 LMP 03/2024, unknown jw7 Historical: - Allergies: 23:45 No Known Allergies; jw7 - PMHx: 23:45 Diabetes - IDDM; Diabetes - NIDDM; jw7 - Immunization history:: Adult Immunizations up to date. - Infectious Disease History:: Denies. - Family history:: not pertinent. - Social history:: Smoking status: unknown. Screenin:45 [facility] ED Fall Risk Assessment (Adult) History of falling in the last 3 months, jw7 including since admission No falls in past 3 months (0 pts) Confusion or Disorientation No (0 pts) Intoxicated or Sedated No (0 pts) Impaired Gait No (0 pts) Mobility Assist Device Used No (0 pt) Altered Elimination No (0 pt) Score/Fall Risk Level 0 - 2 = Low Risk Oriented to surroundings, Maintained a safe environment, Educated pt \T\ family on fall prevention, incl call for assistance when getting out of bed. Abuse screen: Denies threats or abuse. Denies injuries from another. Nutritional screening: No deficits noted. Tuberculosis screening: No symptoms or risk factors identified. Assessment: 23:45 General: See Triage Assessment. jw7 03/23 00:30 Reassessment: Patient appears in no apparent distress at this time. No changes from jw7 previously documented assessment. Patient and/or family updated on plan of care and expected duration. Pain level reassessed. Patient is alert, oriented x 3, equal unlabored respirations, skin warm/dry/pink. 01:11 General: pt states she is shake and had a fever . Neuro: No deficits noted. jm12 Cardiovascular: No deficits noted. Respiratory: No deficits noted. GI: No deficits noted. 02:30 Reassessment: Patient appears in no apparent distress at this time. No changes from jw7 previously documented assessment. Patient and/or family updated on plan of care and expected duration. Pain level reassessed. Patient is alert, oriented x 3, equal unlabored respirations, skin warm/dry/pink. Vital Signs: 03/22 23:20 BP 152 / 96; Pulse 122; Resp 20 S; Temp 99.7(O); Pulse Ox 98% on R/A; Pain 0/10; jw7 03/23 00:30 BP 135 / 85; Pulse 99; Resp 17 S; Pulse Ox 100% on R/A; jw7 01:35 BP 127 / 74; Pulse 98; Resp 14; Temp 99; Pulse Ox 100% ; jm12 02:30 BP 118 / 86; Pulse 94; Resp 16 S; Temp 98.9(O); Pulse Ox 100% on R/A; jw7 03/22 23:20 Pain Scale: Adult jw7 [place] Coma Score: 02:30 Eye Response: spontaneous(4). Motor Response: obeys commands(6). Verbal Response: sp4 oriented(5). Total: 15. ED Course: 03/22 23:17 Patient arrived in ED. jj6 23:22 Mikie Silva MD is Attending Physician. sp4 23:45 Arm band placed on. jw7 23:45 Patient has correct armband on for positive identification. Bed in low position. Call jw7 light in reach. Provided Education on: use of call light. 03/23 00:12 XRAY Chest (1 view) In Process Unspecified. EDMS 00:20 Initial lab(s) drawn, by me, sent to lab. Urine collected: clean catch specimen, jw7 cloudy, COVID swab sent to lab. Inserted saline lock: 20 gauge in right antecubital area, using aseptic technique. Blood collected. Flushed with 10 mL NS. 00:38 Triage completed. jw7 02:47 No provider procedures requiring assistance completed. jw7 02:54 IV discontinued, intact, bleeding controlled, No redness/swelling at site. Pressure jw7 dressing applied. Administered Medications: 00:15 Drug: Ibuprofen PO 400 mg PO once Route: PO; jw7 02:55 Follow up: Response: No adverse reaction; Marked relief of symptoms jw7 00:15 Drug: Acetaminophen PO 325 mg PO once Route: PO; jw7 02:55 Follow up: Response: No adverse reaction; Marked relief of symptoms jw7 00:15 Drug: Diazepam PO 5 mg PO once Route: PO; jw7 02:55 Follow up: Response: No adverse reaction; Marked relief of symptoms jw7 00:20 Drug: NS 0.9% IV 1000 ml IV at 1 bolus Per protocol; 1000 mL bolus Route: IV; Rate: 1 jw7 bolus; Site: right antecubital; 02:56 Follow up: Response: No adverse reaction; IV Status: Completed infusion; IV Intake: jw7 1000ml 00:20 Drug: NS 0.9% IV 1000 ml IV at 1 bolus Per protocol; 1000 mL bolus Route: IV; Rate: 1 jw7 bolus; Site: right antecubital; 02:55 Follow up: Response: No adverse reaction; IV Status: Completed infusion; IV Intake: jw7 1000ml 01:24 Drug: Rocephin - Rocephin (cefTRIAXone) IVPB 1 grams IVPB once over 30 mins; (mix in 50 jm12 mL NS) Route: IVPB; Infused Over: 30 mins; Site: right antecubital; 02:55 Follow up: Response: No adverse reaction; IV Status: Completed infusion; IV Intake: 98rluc9 02:54 Drug: LevOfloxacin PO 500 mg PO once Route: PO; jw7 02:54 Follow up: Response: No adverse reaction; Medication administered at discharge. jw7 Medication: 02:47 VIS not applicable for this client. jw7 Intake: 02:55 IV: 50ml; Total: 50ml. jw7 02:55 IV: 1000ml; Total: 1050ml. jw7 02:56 IV: 1000ml; Total: 2050ml. jw7 Outcome: 02:34 Discharge ordered by . sp4 02:53 Discharged to home ambulatory, jw7 02:53 Condition: stable 02:53 Discharge instructions given to patient, Instructed on discharge instructions, follow up and referral plans. medication usage, Demonstrated understanding of instructions, follow-up care, medications, Prescriptions given X 2, 02:56 Patient left the ED. jw7 Addendum: 03/26/2024 09:45 Addendum: Culture Results: Positive urine culture. No further action required. Bacteria e b sensitive to prescribed antibiotic. Signatures: Dispatcher [employer] EDGA Riri Stubbs Jennifer jj6 Gloria Pineda, RN RN jw7 Mikie Silva MD MD sp4 Shivani Gutierrez RN RN jm12
--- NOTE | 2024-03-23 02:34 | EDPHYS ---
Physician Documentation [facility] Name: Felipa Benavides Age: 23 yrs Sex: Female : 2000 Arrival Date: 03/22/2024 Time: 23:16 Bed 6 Private MD: ED Physician Mikie Silva HPI: 03/22 23:22 This 23 yrs old Female presents to ER via Unassigned with complaints of sp4 Tremor, Fever, High Blood Pressure. 03/23 02:30 23-year-old female presents with acute onset of tremors fever elevated blood pressure sp4 feeling unwell overall.. 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 - Infectious Disease History:: Denies. - Family history:: not pertinent. - Social history:: Smoking status: unknown. ROS: 03/23 02:30 Constitutional: Positive fever, positive chills, positive body aches, positive feeling sp4 unwell, positive diffuse tremors All other systems are negative, Exam: 02:30 Constitutional: This is a well developed, well nourished patient who is awake, sp4 ill-appearing on arrival tremulous small degree of fever Head/Face: Normocephalic, atraumatic. Eyes: Pupils equal round and reactive to light, extra-ocular motions intact. Lids and lashes normal. Conjunctiva and sclera are not injected. Cornea within normal limits. Periorbital areas with no swelling, redness, or edema. ENT: Nares patent. No nasal discharge, no septal abnormalities noted. Tympanic membranes are normal and external auditory canals are clear. Oropharynx with no redness, swelling, or masses, exudates, or evidence of obstruction, uvula midline. Mucous membranes moist. Neck: Trachea midline, no thyromegaly or masses palpated, and no cervical lymphadenopathy. Supple, full range of motion without nuchal rigidity, or vertebral point tenderness. Chest/axilla: Normal chest wall appearance and motion. Nontender with no deformity. No lesions are appreciated. Cardiovascular: Regular rate and rhythm with a normal S1 and S2. No gallops, murmurs, or rubs. Normal PMI, no JVD. No pulse deficits. Respiratory: Lungs have equal breath sounds bilaterally, clear to auscultation and percussion. No rales, rhonchi or wheezes noted. No increased work of breathing, no retractions or nasal flaring. Abdomen/GI: Soft, with normal bowel sounds. No distension or tympany. No guarding or rebound. No evidence of tenderness throughout. Back: No spinal tenderness. No costovertebral tenderness. Skin: Warm, dry with normal turgor. Normal color with no rashes, no lesions, and no evidence of cellulitis. MS/ Extremity: Pulses equal, no cyanosis. Neurovascular intact. Full, normal range of motion. Neuro: Awake and alert, GCS 15, oriented to person, place, time, and situation. Cranial nerves II-XII grossly intact. Motor strength 5/5 in all extremities. Sensory grossly intact. Psych: Awake, alert, with orientation to person, place and time. Behavior, mood, and affect are within normal limits Vital Signs: 03/22 23:20 BP 152 / 96; Pulse 122; Resp 20 S; Temp 99.7(O); Pulse Ox 98% on R/A; Pain 0/10; jw7 03/23 00:30 BP 135 / 85; Pulse 99; Resp 17 S; Pulse Ox 100% on R/A; [facility] 01:35 BP 127 / 74; Pulse 98; Resp 14; Temp 99; Pulse Ox 100% ; 12 02:30 BP 118 / 86; Pulse 94; Resp 16 S; Temp 98.9(O); Pulse Ox 100% on R/A; 7 03/22 23:20 Pain Scale: Adult [facility] [place] Coma Score: 02:30 Eye Response: spontaneous(4). Motor Response: obeys commands(6). Verbal Response: sp4 oriented(5). Total: 15. MDM: 03/22 23:25 Patient medically screened. sp4 03/23 02:08 ED course: PROCEDURE: XR Chest, 1 View CLINICAL INDICATION: The patient is 23 years old sp4 and is Female; Chest pain TECHNIQUE: Frontal view of the chest. COMPARISON: None. FINDINGS: LUNGS: No discrete focal consolidation. PLEURAL SPACE: No appreciable pleural effusion or pneumothorax. MEDIASTINUM: Unremarkable cardiomediastinal contour. BONES/JOINTS: No acute osseous abnormality. IMPRESSION: No acute cardiopulmonary abnormality. Electronically signed by: Edmundo Shore MD 03/23/2024 12:46 AM. 02:32 Differential diagnosis: viral Infection, bacterial infection, URI, pneumonia UTI, sp4 gastroenteritis. Data reviewed: vital signs, nurses notes, EMS record, old medical records, lab test result(s), radiologic studies, plain films. Consideration of Admission/Observation Escalation of care including admission/observation considered. ED course: Patient has some UTI. Will be prescribed levofloxacin for 7 days. 03/22 23:23 Order name: Basic Metabolic Panel; Complete Time: 02:07 sp 03/22 23:23 Order name: CBC with Diff; Complete Time: 02:07 [facility] 03/22 23:23 Order name: LFT's; Complete Time: 02:07 [facility] 03/22 23:23 Order name: Magnesium; Complete Time: 02:07 [facility] 03/22 23:23 Order name: NT PRO-BNP; Complete Time: 02:07 [facility] 03/22 23:24 Order name: Urinalysis W/Microscopic; Complete Time: 01:03 sp4 03/22 23:24 Order name: Test, Urine; Complete Time: 02:07 [facility] 03/22 23:25 Order name: SARS RAPID; Complete Time: 02:07 [facility] 03/23 01:03 Order name: Urine Culture [facility] 03/23 02:35 Order name: Glucose, Ancillary Testing; Complete Time: 02:35 [facility] 03/22 23:23 Order name: XRAY Chest (1 view) [facility] 03/22 23:23 Order name: IV Saline Lock; Complete Time: 23:37 sp4 03/22 23:23 Order name: Labs collected and sent; Complete Time: 23:37 sp4 03/22 23:23 Order name: O2 Per Protocol; Complete Time: 23:37 [facility] 03/22 23:23 Order name: O2 Sat Monitoring; Complete Time: 23:37 [facility] 03/23 02:12 Order name: Accucheck Blood Glucose; Complete Time: 02:48 sp4 Administered Medications: 00:15 Drug: Ibuprofen PO 400 mg PO once Route: PO; jw7 02:55 Follow up: Response: No adverse reaction; Marked relief of symptoms jw7 00:15 Drug: Acetaminophen PO 325 mg PO once Route: PO; jw7 02:55 Follow up: Response: No adverse reaction; Marked relief of symptoms jw7 00:15 Drug: Diazepam PO 5 mg PO once Route: PO; 7 02:55 Follow up: Response: No adverse reaction; Marked relief of symptoms jw7 00:20 Drug: NS 0.9% IV 1000 ml IV at 1 bolus Per protocol; 1000 mL bolus Route: IV; Rate: 1 jw7 bolus; Site: right antecubital; 02:56 Follow up: Response: No adverse reaction; IV Status: Completed infusion; IV Intake: jw7 1000ml 00:20 Drug: NS 0.9% IV 1000 ml IV at 1 bolus Per protocol; 1000 mL bolus Route: IV; Rate: 1 jw7 bolus; Site: right antecubital; 02:55 Follow up: Response: No adverse reaction; IV Status: Completed infusion; IV Intake: jw7 1000ml 01:24 Drug: Rocephin - Rocephin (cefTRIAXone) IVPB 1 grams IVPB once over 30 mins; (mix in 50 jm12 mL NS) Route: IVPB; Infused Over: 30 mins; Site: right antecubital; 02:55 Follow up: Response: No adverse reaction; IV Status: Completed infusion; IV Intake: [id number] 02:54 Drug: LevOfloxacin PO 500 mg PO once Route: PO; jw 02:54 Follow up: Response: No adverse reaction; Medication administered at discharge. jw7 Disposition Summary: 03/23/24 02:34 Discharge Ordered Notes: Location: Home sp4 Problem: new sp4 Symptoms: have improved sp4 Condition: Stable sp4 Diagnosis - UTI/ Urinary tract infection, site not specified sp4 - Type 2 diabetes mellitus with hyperglycemia sp4 Followup: sp4 - With: Private Physician - When: 7 - 10 days - Reason: Recheck today's complaints Discharge Instructions: - Discharge Summary Sheet sp4 - Urinary Tract Infection, Adult, [id number] sp4 Forms: - Patient Portal Instructions sp4 Prescriptions: - ondansetron 8 mg Oral Tablet,disintegrating - take 1 tablet ORAL route every 8 hours PRN nausea; 30 tablet; Refills: 0, sp4 Product Selection Permitted - levofloxacin 500 mg Oral tablet - take 1 tablet ORAL route once daily for 7 days; 7 tablet; Refills: 0, Product sp4 Selection Permitted Signatures: Dispatcher [employer] EDMS Gloria Pineda RN RN jw7 Mikie Silva MD MD sp4 Shivani Gutierrez RN RN [email or web address] Corrections: (The following items were deleted from the chart) 03/22 23:24 23:24 BASIC METABOLIC PANEL+C.LAB.BRZ ordered. EDMS EDMS 23:24 23:24 CBC+H.LAB.BRZ ordered. EDMS EDMS 23:24 23:24 HEPATIC FUNCTION+C.LAB.BRZ ordered. EDMS EDMS 23:24 23:24 MAGNESIUM+C.LAB.BRZ ordered. EDMS EDMS 23:24 23:24 PROBNP+C.LAB.BRZ ordered. EDMS EDMS
[2024-03-23] MEDS ORDERED: levoFLOXacin 250 MG TAB ONE (02:51)
--- NOTE | 2024-03-23 16:43 | RAD REPORT ---
EXAM DESCRIPTION: RAD - Chest Single View - 03/23/2024 12:10 am CLINICAL INDICATION: The patient is 23 years old and is Female; Chest pain TECHNIQUE: Frontal view of the chest. COMPARISON: None. FINDINGS: LUNGS: No discrete focal consolidation. PLEURAL SPACE: No appreciable pleural effusion or pneumothorax. MEDIASTINUM: Unremarkable cardiomediastinal contour. BONES/JOINTS: No acute osseous abnormality. IMPRESSION: No acute cardiopulmonary abnormality. Electronically signed by: Edmundo Shore MD 03/23/2024 12:46 AM CDT RP Due to temporary technical issues with the PACS/Fluency reporting system, reports are being signed by the in house radiologists without review as a courtesy to insure prompt reporting. The interpreting radiologist is fully responsible for the content of the report.
[2024-03-25 16:16] VITALS: BP 118/86; TEMP 98.9; O2SAT 100
== END 2024-03-23 02:56 | disposition home or self-care (01) ==
LOC: ER 23:16
DX: N39.0 Urinary tract infection, site not specified (principal); E11.65 Type 2 diabetes mellitus with hyperglycemia; Z11.52 Encounter for screening for COVID-19
CPT/HCPCS: 36415; 71045; 80048; 80076; 81001; 81025; 82947; 83735; 83880; 85025; 87077; 87086; 87088; 87186; 87811; 96361; 96365; 96366; 99284; J0696; J7030